=== PATIENT | male | born 1945 | race Caucasian/White ===

== ENCOUNTER → 2020-03-05 09:55 | Outpatient (CLI) | payer MEDICARE, OTHER, SELFPAY ==
[2020-03-06 21:02] LABS: COVID19 Sendout Not Detected (Not Detect)
== END ==
PROVIDERS: PCP Family Medicine; Visit Provider Nurse Practitioner
DX: Z01.812 Encounter for preprocedural laboratory examination (principal)
CPT/HCPCS: 87635

== ENCOUNTER 2020-03-08 14:14 | Day surgery (SDC) | payer MEDICARE, OTHER, SELFPAY ==
--- NOTE | 2020-03-08 | PATH_ITS ---
[facility] Accession Number: [id number] . 01 Material submitted: . PART A: cecum - CECUM POLYP PART B: sigmoid colon - SIGMOID POLYP . 01 Clinical history: . A: CECUM POLYP 1MM B: SIGMOID POLYP 2MM X2 . 02 Diagnosis: A. Cecum Polyp: Tubular adenoma. . B. Sigmoid Polyp: Portions of tubular adenoma x2. MRV 03/10/2020 1002 Local . 02 Electronically signed: . Nadia Easley MD, Pathologist NPI- [id number] . 01 Gross description: . Part A: CECUM POLYP: Received in formalin is 1 fragment(s) of george, soft tissue measuring 0.3 x 0.3 x 0.2 cm submitted entirely in 1 cassette(s) Part B: SIGMOID POLYP: Received in formalin are 2 fragment(s) of george, soft tissue measuring 0.3 x 0.2 x 0.2 cm to 0.3 x 0.3 x 0.1 cm submitted entirely in 1 cassette(s) /QBJ 03/09/2020 0657 Local . 02 Pathologist provided ICD-10: Z12.11, K63.5 . 02 CPT . 295003, 970322 Performed at: 01 [facility] [address], [place], [place] [id number] MD Jorge Sinha MD Phone: [phone] Performed at: 02 [facility] [address] [place], [place] [id number] MD Mimi Sanchez MD Phone: [phone]
--- NOTE | 2020-03-08 12:40 | PM.HP.1 ---
History of Present Illness History of Present Illness Date Patient Seen: 03/08/20 Chief complaint: 93068 SCREENING COLONOSCOPY Narrative: 74 year old male comes in today for consideration of a screening colonoscopy. Last colonoscopy on 06/26/2014, rectal tubular adenoma, 2-3 mm. There have been no lower GI symptoms suggesting disease such as change in bowel habits, bleeding, abdominal pain or anemia. There's been no family history of colon cancer or colon polyps. Overall health issues have been stable, including no major cardiac events for at least 6 weeks. PCP: Dr. 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 Patient History Medical History (Updated 03/08/20 @ 14:54 by Elise Vivas RN) Detached retina (Acute) Detached retina, bilateral (Acute) Hard of hearing (Acute) History of colon polyps (Acute) History of squamous cell carcinoma of skin (Acute) Recurrent epistaxis (Acute) Surgical History (Updated 03/08/20 @ 14:54 by Elise Vivas RN) H/O right knee surgery (Acute ~1990) H/O wrist surgery (Acute) History of cholecystectomy (Acute ~2010) Status post cataract extraction of both eyes with insertion of intraocular lens (Acute) Meds Home Medications and Allergies Home Medications Medication Instructions Recorded Confirmed Type No Known Home Medications 03/08/20 03/08/20 History Allergies Allergy/AdvReac Type Severity Reaction Status Date / Time No Known Drug Allergies Allergy Verified 03/08/20 14:30 Review of Systems Review of Systems ROS: Yes All systems reviewed with the patient and are negative except as otherwise documented Exam Narrative Exam Narrative: GENERAL: Alert and oriented, appearing stated age and in no acute distress. HEENT: Head normocephalic/atraumatic. Pupils equal, round, and reactive to light and accomodation. Extraocular muscles intact. Tympanic membranes clear. Nasal mucosa moist, septum midline. Oral mucosa moist, no lesions. Neck soft and supple, no lymphadenopathy. LUNGS: Clear to ausculation bilaterally, no wheezes, rhonchi or rales. CV: Normal S1 and S2 with regular rate and rhythm, no audible murmurs, rubs or gallops. ABDOMEN: Soft, non-tender, non-distended, no organomegaly. Positive bowel sounds. EXTREMITIES: No clubbing, cyanosis, or edema. NEURO: Cranial nerves II through XII grossly intact, no focal deficits. PSYCH: Alert and oriented x 3. SKIN: No concerning lesions. Assessment & Plan Assessment & Plan narrative: 1. History of colon polyp 2. Screening for colon cancer Plan for colonoscopy. The nature and character of the procedure as well as anticipated results were discussed. The possibility of not completing the procedure was also discussed. Possible complications including aspiration pneumonia, bleeding, perforation and reaction to medications either for sedation or preparation and missed lesions were discussed. Questions were answered and proceeding to the colonoscopy was elected. Informed consent signed. I sincerely appreciate the referral allowing me to participate in this patient's care. Please contact me with any questions or concerns.
--- NOTE | 2020-03-08 12:44 | PM.OP.ENDO ---
Operative Date/Time/Diagnoses Date of procedure: 03/08/20 Time of procedure: 15:59 Pre-op diagnosis: 1. History of colon polyp 2. Screening for colon cancer Post-op diagnosis: other (Cecal polyp x1, 1 mm, removed with cold biopsy forceps, sigmoid polyp x2, 2 mm, removed with cold biopsy forceps, diverticulosis, left-sided) Procedure & Clinicians Study performed: Colonoscopy Same procedure as scheduled: Yes Indications: 1. History of colon polyp 2. Screening for colon cancer Surgeon: Siri Casas Procedure Notes SCOAP/Timeout: 3:53 p.m. Procedure in detail: ENDOSCOPIST: Siri Casas MD Sedation RN: Meryl Moses RN Sedation start time: 3:59 p.m. Sedation end time: 4:20 p.m. PROCEDURE: Colonoscopy with cold biopsy INDICATIONS: 1. History of colon polyp 2. Screening for colon cancer MEDICATION: Levsin 0.125 mg sublingual, incremental doses of Versed and fentanyl until appropriate level sedation achieved. ASA CLASS: 1 CECAL WITHDRAWAL TIME: 24 minutes COMPLICATIONS: None. EXTENT OF PROCEDURE: Cecum. QUALITY OF PREP: Good with portions of liquid stool. PROCEDURE: Prior to insertion of the colonoscope, a digital rectal examination was accomplished with circumferential palpation of the distal rectal mucosa without significant findings being noted. The high-definition colonoscope was passed into the rectum in the usual fashion and advanced over to the cecum without difficulty. The ileocecal valve, appendiceal stoma, and medial wall all could be inspected and a 1 mm polyp was seen and removed with cold biopsy forceps. ASCENDING COLON: As the colonoscope was withdrawn, care was taken to expose and inspect the haustral folds and no abnormalities were seen. HEPATIC FLEXURE: Normal no polyps, diverticula or other abnormalities. TRANSVERSE COLON: Normal no polyps, diverticula or other abnormalities. DESCENDING COLON: Mild diverticulosis, otherwise, normal, no polyps or other abnormalities. SIGMOID COLON: Moderate diverticulosis. Two polyp, 2 mm in size, both removed with cold biopsy forceps, excellent hemostasis. Otherwise, no other abnormalities. RECTUM: Normal. J maneuver was produced. There was no significant perianal disease. The J maneuver was broken. The remainder of the rectum was inspected and there was no external hemorrhoid disease. The scope was withdrawn. IMPRESSION: 1. Cecal polyp x1, 1 mm, removed with cold biopsy forceps 2. Sigmoid polyp x2, 2 mm, removed with cold biopsy forceps 3. Mild to moderate diverticulosis, left-sided PLAN: 1. Follow-up in clinic status post pathology results. The possibility of a missed lesion including a malignancy has been discussed with the patient previously. Potential alarm symptoms have been discussed and should be reported immediately. Complications: none Post-procedure Recommendations: Will call with biopsy results Follow up: weeks (2) Disposition: PACU
[2020-03-08] MEDS: HYOSCYAMINE 0.125 MG TABLET PO (14:32)
[2020-03-08] MEDS: LACTATED RINGERS 1,000 ML 200 ML IV (14:43)
[2020-03-08 14:44] VITALS: BP 155/79; PULSE 65; RESP 16; TEMP 36.5; O2SAT 100; BMI 20.8
[2020-03-08] MEDS: fentaNYL 250 MCG/5 ML INJ IV ×3 (15:54→16:06)
[2020-03-08] MEDS: MIDAZOLAM 5 MG/5 ML VIAL IV ×3 (15:55→16:02)
[2020-03-08 16:25] VITALS: BP 117/66; PULSE 63; RESP 13; TEMP 36.3; O2SAT 97
[2020-03-08 16:30] VITALS: BP 117/54; PULSE 66; RESP 10; O2SAT 97
--- NOTE | 2020-03-08 16:33 | SUR.PHASEI ---
arouses easily to voice. Dr. Casas speaking with patient. Oriented.
[2020-03-08 16:34] VITALS: BP 126/74; PULSE 65; RESP 14; O2SAT 97
[2020-03-08 16:45] VITALS: BP 122/77; PULSE 66; RESP 15; TEMP 36.6; O2SAT 97
== END 2020-03-08 16:59 | disposition home or self-care (01) ==
PROVIDERS: PCP Family Medicine; Referring Provider Student in an Organized Health Care Education/Training Program; Visit Provider Student in an Organized Health Care Education/Training Program
PROC: 0DJD8ZZ Inspection of Lower Intestinal Tract, Via Natural or Artificial Opening Endoscopic (ICD-10-PCS; CPT 45378; principal; 2020-03-08 15:15)
DX: Z12.11 Encounter for screening for malignant neoplasm of colon (principal); Z86.010 Personal history of colon polyps; K57.30 Diverticulosis of large intestine without perforation or abscess without bleeding; D12.0 Benign neoplasm of cecum; D12.5 Benign neoplasm of sigmoid colon
CPT/HCPCS: 45380; J2250; J3010

== ENCOUNTER → 2020-10-28 14:49 | Outpatient (CLI) | payer MEDICARE, OTHER, SELFPAY ==
[2020-10-28 16:04] LABS: Add Manual Diff / Slide Review NO; Basophils Absolute Auto 0 /uL (0-100); Basophils Percent Auto 0.5 % (0-2); Eosinophils Absolute Auto 100 /uL (0-450); Eosinophils Percent Auto 1.4 % (2-4); Hematocrit 42.9 % (41-53); Hemoglobin 14.4 g/dL (13.5-17.5); Lymphocytes Absolute Auto 1400 /uL (1100-4500); Lymphocytes Percent Auto 23.3 % (25-40); Mean Corpuscular HGB Conc 33.6 % (30-36); Mean Corpuscular Hemoglobin 30.3 PG (26-34); Mean Corpuscular Volume 90.2 fL (80-100); Monocytes Absolute Auto 500 /uL (0-900); Monocytes Percent Auto 7.8 % (3-14); Neutrophils Absolute Auto 3900 /uL (1500-7000); Platelet Count 231 X10^3/uL (150-400); Red Blood Cell Count 4.76 X10^6/uL (4.5-5.9); Red Cell Distribution Width 12.9 % (11.6-14.8); White Blood Cell Count 5.8 X10^3/uL (4.5-11.0)
[2020-10-28 16:25] LABS: Erythrocyte Sedimentation Rate 3 MM/HR (0-15)
[2020-10-28 16:37] LABS: Alanine Aminotransferase 21 IU/L (<50); Albumin 4.2 g/dL (3.5-5.0); Albumin Globulin Ratio 1.4 (1.0-2.8); Alkaline Phosphatase 82 U/L (38-126); Aspartate Aminotransferase 33 IU/L (17-59); BUN Creatinine Ratio 17.3 (6-22); Bilirubin Total 0.4 mg/dL (0.2-1.3); Blood Urea Nitrogen 13 mg/dL (9-20); Carbon Dioxide 30 mmol/L (22-32); Chloride 101 mmol/L (98-107); Estimated Glomerular Filt Rate > 60.0 mL/min (>60); Glucose 59 mg/dL (80-110); HEMOLYSIS < 15 (0-50); Potassium 3.7 mmol/L (3.4-5.1); Sodium 137 mmol/L (137-145); Total Protein 7.2 g/dL (6.3-8.2)
[2020-10-28 16:41] LABS: High Sensitivity CRP - Cardiac 2.7 mg/L (1.0-3.0)
[2020-10-28 16:57] LABS: Thyroid Stimulating Hormone 3.84 uIU/mL (0.47-4.68)
== END ==
PROVIDERS: PCP Student in an Organized Health Care Education/Training Program; Referring Provider Ophthalmology; Visit Provider Ophthalmology
DX: H53.121 Transient visual loss, right eye (principal); M79.10 Myalgia, unspecified site
CPT/HCPCS: 36415; 80053; 84443; 85025; 85651; 86140

== ENCOUNTER → 2020-11-02 09:44 | Outpatient (CLI) | payer MEDICARE, OTHER, SELFPAY ==
--- NOTE | 2020-11-02 | DI.US.S_ITS ---
PROCEDURE: US CAROTID DOPPLER BI INDICATIONS: OCCULSION AND STENOSIS OF RIGHT ARTERY TECHNIQUE: Color and pulse Doppler interrogation was performed of both carotid systems, with image documentation and velocity measurements. COMPARISON: None. FINDINGS: Stenosis calculations are based on SRU (Society of Radiologists in Ultrasound) criteria. The flow velocities and the arterial waveforms are normal within both carotid arterial systems. The estimated degree of internal carotid artery stenosis is less than 50%. Antegrade flow is confirmed within both vertebral arteries. IMPRESSION: No hemodynamically significant stenosis is seen. Dictated by: Alexander Ram M.D. on 11/02/2020 at 9:57 Approved by: Alexander Ram M.D. on 11/02/2020 at 9:57
== END ==
PROVIDERS: PCP Student in an Organized Health Care Education/Training Program; Referring Provider Ophthalmology; Visit Provider Ophthalmology
DX: I65.21 Occlusion and stenosis of right carotid artery (principal)
CPT/HCPCS: 93880

== ENCOUNTER → 2020-11-25 07:57 | Outpatient (CLI) | payer MEDICARE, OTHER, SELFPAY ==
--- NOTE | 2020-11-25 | DI.ECHO.S_ITS ---
[place] [facility]---------+ [facility] +---------+ : : [address] : : : : [id number] : : : : Phone: [phone] +---------+ Echocardiogram Report + + :Name: ISADORA FONTANEZ Study Date: 11/25/2020 Height: 71 in : :[facility] ReadingLocation: Weight: 153 lb : : Gender: Male BSA: 1.9 m2 : :: 1945 Age: 75 yrs BP: 167/83 mmHg: :Reason For Study: Amaurosis Fugax : :Ordering Physician: JUDY, : :BRE Performed By: Singh Degroot : :Referring: BRE KIM : + + Interpretation Summary The ejection fraction is estimated to be 50-55%. There is mild mitral regurgitation. There is mild to moderate pulmonic regurgitation. The ascending aorta is mildly enlarged. Procedure: A two-dimensional transthoracic echocardiogram with color flow and Doppler was performed. The study quality was technically adequate. There is no prior echocardiogram noted for this patient. The patient was in sinus rhythm with heart rates between 51-61 bpm during the exam. Left Ventricle: The left ventricle is normal in size and wall thickness. Left ventricular systolic function is low normal. The ejection fraction is estimated to be 50-55%. There are no focal wall motion abnormalities. Diastolic function could not be accurately assessed due to unobtainable data. Right Ventricle: The right ventricle is normal in size and function. Atria: Both atria are normal in size. There is no Doppler evidence for an interatrial shunt. Mitral Valve: The mitral valve is normal in structure and function. There is mild mitral regurgitation. The mitral regurgitant jet is eccentrically directed. Aortic Valve: The aortic valve is normal in structure and function. No aortic regurgitation is present. Tricuspid Valve: The tricuspid valve is normal in structure and function. There is a trace or physiologic amount of tricuspid regurgitation. Pulmonary artery pressures cannot be estimated because of the lack of a measurable TR jet velocity but the IVC suggests a CVP of around 3 mmHg. Pulmonic Valve: The pulmonic valve is not well seen, but is grossly normal. There is mild to moderate pulmonic regurgitation. Great Vessels: The aortic root is normal size. The ascending aorta is mildly enlarged. The IVC is of normal diameter and collapses greater than 50% with a sniff. This suggests a low right atrial pressure of 3 mm Hg. Pericardium/ Pleura There is no pericardial effusion. There is no pleural effusion. MMode/2D Measurements & Calculations LVIDd: 5.4 cm LVOT diam: 2.4 cm LVIDs: 3.7 cm Ao root diam: 3.4 cm FS: 31.5 % asc Aorta Diam: 3.7 cm IVSd: 0.75 cm Ao Arch Diam (Prox Trans): 2.8 cm LVPWd: 0.86 cm LV chase. diameter/BSA (cm/m^2): 2.9 LV sys. diameter/BSA (cm/m^2): 2.0 LA A2 area: 14.1 cm2 RA area: 8.6 cm2 LA A4 area: 12.8 cm2 IVC diam: 1.9 cm LA length (vol): 3.7 cm LA vol: 41.8 ml LA vol index: 22.2 ml/m2 RVD1 (basal): 3.7 cm TAPSE: 1.8 cm Doppler Measurements & Calculations Ao V2 max: 84.5 cm/sec LVOT Max Ubaldo: 74.9 cm/sec Ao V2 mean: 58.7 cm/sec LV V1 max P.2 mmHg Ao max P.9 mmHg LV V1 VTI: 18.9 cm Ao mean P.5 mmHg ALETHEA(I,D): 4.0 cm2 Ao V2 VTI: 21.7 cm ALETHEA(V,D): 4.1 cm2 sev ratio: 0.87 ALETHEA indexed to BSA (cm^2/m^2): 2.1 MV E max ubaldo: 65.3 cm/sec PA V2 max: 89.2 cm/sec Med Peak E' Ubaldo: 4.4 cm/sec PA V2 mean: 64.6 cm/sec E/E' med: 14.8 PA mean P.8 mmHg Lat Peak E' Ubaldo: 5.2 cm/sec PA pr(Accel): 19.8 mmHg E/E' lat: 12.7 E/e' average: 13.7 MV dec time: 0.34 sec SV(LVOT): 87.0 ml Reading Physician:09:21 AM
== END ==
PROVIDERS: PCP Student in an Organized Health Care Education/Training Program; Referring Provider Student in an Organized Health Care Education/Training Program; Visit Provider Student in an Organized Health Care Education/Training Program
DX: G45.3 Amaurosis fugax (principal); I34.0 Nonrheumatic mitral (valve) insufficiency; I37.1 Nonrheumatic pulmonary valve insufficiency
CPT/HCPCS: 93306

== ENCOUNTER → 2021-01-24 14:14 | Outpatient (CLI) | payer MEDICARE, OTHER, SELFPAY ==
[2021-01-24 16:58] LABS: COVID19 -Nasal RAPID Negative (Negative)
== END ==
PROVIDERS: PCP Student in an Organized Health Care Education/Training Program; Visit Provider Physician Assistant
DX: Z01.812 Encounter for preprocedural laboratory examination (principal); Z20.822 Contact with and (suspected) exposure to COVID-19
CPT/HCPCS: 87635; C9803

== ENCOUNTER → 2021-01-27 13:33 | Outpatient (CLI) | payer MEDICARE, OTHER, SELFPAY ==
--- NOTE | 2021-01-27 09:29 | DI.ECHO.S_ITS ---
[place] [facility]---------+ [facility] +---------+ : : [address] : : [address] : : : : [id number] : : : : Phone: [phone] : [phone] +---------+ Echocardiogram Report + + :Name: ISADORA FONTANEZ Study Date: 01/27/2021 Height: 71 in : :[facility] ReadingLocation: Weight: 152 lb: : Gender: Male BSA: 1.9 m2 : :: 1945 Age: 75 yrs : :Reason For Study: Patent Foramen [place] : :Ordering Physician: Halima : :Abdiel Nieves Performed By: Singh Degroot : :Referring: HALIMA NIEVES : + + Interpretation Summary Limited Echo: Injection of contrast documented no interatrial shunt. Procedure: The study quality was technically adequate. A two-dimensional transthoracic echocardiogram with color flow and Doppler was performed in limited views only. Comparison is made with the echocardiogram of 11/25/2020. A saline contrast injection was performed to assess for cardiac shunting. The patient was in sinus rhythm with heart rates between 57-61 bpm during the exam. Left Ventricle: The left ventricle is normal in size and wall thickness. The ejection fraction is estimated to be 50-55%. Left ventricular systolic function is low normal. There are no focal wall motion abnormalities. Right Ventricle: The right ventricle is normal in size and function. Atria: Injection of contrast documented no interatrial shunt. Great Vessels: The IVC is of normal diameter and collapses greater than 50% with a sniff. This suggests a low right atrial pressure of 3 mm Hg. Pericardium/ Pleura There is no pericardial effusion. There is no pleural effusion. MMode/2D Measurements & Calculations LVIDd: 5.3 cm LVIDs: 3.8 cm FS: 29.7 % IVSd: 0.91 cm LVPWd: 0.87 cm LV chase. diameter/BSA (cm/m^2): 2.9 LV sys. diameter/BSA (cm/m^2): 2.0 Reading Physician:05:51 PM
--- NOTE | 2021-01-27 19:33 | DI.NM.S_ITS ---
DATE OF SERVICE: 01/27/2021 PROCEDURE PERFORMED: Exercise treadmill stress test without imaging. ORDERING PROVIDER: Dr. Bharat Nieves. INDICATIONS: The patient is a 75-year-old male with a history of possible TIA and significant ectopy noted on heart monitoring. FINDINGS: 1. The patient was able to exercise for 9 minute 6 seconds on a standard Prashant protocol, suggesting excellent exercise capacity with an MARTELL of -39% and was stopped because of considerable ectopy and thus this is a submaximal study. He achieved 10.1 METs. 2. He had a normal heart rate and blood pressure response to exercise, achieving a maximum heart rate of 146 BPM (100% of his predicted maximum). 3. He had no chest discomfort or anginal symptoms with exercise. 4. His resting ECG shows sinus rhythm with normal ST segments and no significant ectopy. With stress, he develops increasingly frequent atrial ectopy, initially with isolated PACs, then in couplets and triplets followed by wide-complex premature beats, which may reflect ventricular ectopy or aberrant conduction, escalating to triplets at peak exercise. The ST-segments are compromised by the ectopy and motion artifact, but the 30 second recovery ECG shows normal ST segments without any ischemic changes. He continued to have occasional atrial couplets in recovery with PVCs or aberrant conduction in a bigeminal pattern. There were no sustained arrhythmias and he remained asymptomatic. IMPRESSION: 1. Normal exercise treadmill study for ischemia with no ECG evidence for significant ST-segment deviation. 2. Excellent exercise capacity without angina. He has increasingly for frequent atrial and possible ventricular ectopy with exercise of uncertain clinical significance, but remained asymptomatic. Clinton Hawkins - SYBIL/zheng/glenny doc#: [id number]/job#: [id number] dd: 01/27/2021 16:47:00 dt: 01/27/2021 18:50:00 DICTATING MD/COPIES TO: Ming Wolf MD; Mahin Nieves MD COPIES MNE: RENE;
== END ==
PROVIDERS: PCP Student in an Organized Health Care Education/Training Program; Referring Provider Internal Medicine Cardiovascular Disease; Visit Provider Internal Medicine Cardiovascular Disease
DX: I47.2 Ventricular tachycardia (principal); G45.3 Amaurosis fugax; I49.3 Ventricular premature depolarization
CPT/HCPCS: 93017; 93307

== ENCOUNTER → 2021-07-01 10:37 | Outpatient (CLI) | payer MEDICARE, OTHER, SELFPAY ==
[2021-07-01] MEDS: COVID-19 VACC #3, MRNA(MOD) 50 MCG/0.25 ML VIAL IM (10:42)
== END ==
PROVIDERS: PCP Student in an Organized Health Care Education/Training Program; Visit Provider Internal Medicine
DX: Z23 Encounter for immunization (principal)
CPT/HCPCS: 0013A; 91301

== ENCOUNTER 2023-01-20 18:02 | Emergency (ER) | payer MEDICARE, OTHER, SELFPAY ==
[2023-01-20 18:08] VITALS: BP 163/72; PULSE 61; RESP 14; TEMP 36.3; O2SAT 100; BMI 22.2
--- NOTE | 2023-01-20 18:12 | DI.US.S_ITS ---
PROCEDURE: US PERIPH VENOUS LOW EXTREM LT INDICATIONS: EDEMA TECHNIQUE: Real-time imaging, as well as color and pulse Doppler interrogation, were performed of the lower extremity deep veins from the inguinal ligament to the popliteal fossa. COMPARISON: None. FINDINGS: The common femoral, femoral and popliteal veins are normally compressible, and free of intraluminal thrombus. Color and pulse Doppler demonstrate normal phasic intraluminal flow. There is normal augmentation response to distal compression maneuver. IMPRESSION: No evidence of DVT in visualized left lower extremity veins. Dictated by: Tye Marroquin M.D. on 01/20/2023 at 19:05 Approved by: Tye Marroquin M.D. on 01/20/2023 at 19:05
[2023-01-20 22:02] VITALS: BP 185/87; PULSE 53; RESP 16; O2SAT 100
--- NOTE | 2023-01-20 22:06 | ED_ITS ---
HPI - Extremity Problem General Chief complaint: Extremity Problem,Nontraumatic Stated complaint: Swelling foot Time Seen by Provider: 01/20/23 20:23 Source: patient Mode of arrival: Ambulatory History of Present Illness HPI Narrative: 77-year-old male nonsmoker with no chronic medical history presents for evaluation of swelling of his left foot and some pain in his mid to upper calf in the absence of any injury. He denies any redness, fever or chills. He denies any trauma or injury. He states he 1st noticed the pain and swelling after traveling internationally. He is not dizzy nor weak or lightheaded. He denies chest pain or shortness of breath. He has had no nausea, vomiting or diarrhea. His pain is worse with attempts at ambulation and improves with rest. He denies any history of blood clot. Related Data Home Medications Medication Instructions Recorded Confirmed No Known Home Medications 03/08/20 03/08/20 Allergies Allergy/AdvReac Type Severity Reaction Status Date / Time No Known Drug Allergies Allergy Verified 01/20/23 18:08 Review of Systems Review of Systems Narrative: GENERAL: Denies chills, fatigue, malaise, fever, sweats. HEENT: Denies sinus pain, ear pain, sore throat, difficulty swallowing, dizzine ss. RESPIRATORY: Denies dyspnea, cough, wheezing, hemoptysis, sputum. CARDIOVASCULAR: See HPI GASTROINTESTINAL: Denies nausea, vomiting, abdominal pain, diarrhea, constipation, melena. : Denies dysuria, frequency, incontinence, hematuria, urinary retention. MUSCULOSKELETAL: See HPI SKIN: Denies rash, skin lesions, or other NEUROLOGIC: Denies weakness, headache, numbness, change in speech, confusion, seizures, incoordination. PSYCHIATRIC: No concerning psychosocial issues. 12 point review of systems is negative except for those stated above Patient History Medical History (Updated 01/20/23 @ 22:32 by Christo Fatima DO) Detached retina Detached retina, bilateral Hard of hearing History of colon polyps History of squamous cell carcinoma of skin Recurrent epistaxis Surgical History (Updated 03/08/20 @ 14:54 by Elise Vivas RN) H/O right knee surgery (~1990) H/O wrist surgery History of cholecystectomy (~2010) Status post cataract extraction of both eyes with insertion of intraocular lens Social History household members: spouse Smoking Status: Never smoker alcohol intake: current Smoking Status: Never smoker Substance Use Type: does not use Exam Narrative Exam Narrative: GENERAL: [77] year old patient appears stated age. Well-developed patient, in mild distress. HEAD: Atraumatic. Normocephalic. EYES: Pupils equal round and reactive. Extraocular motions intact. No scleral icterus. No injection or drainage. ENT: Nose without bleeding, purulent drainage. Throat without erythema, tonsillar hypertrophy or exudate. Airway patent. NECK: Trachea midline. Non tender CARDIOVASCULAR: Regular rate and rhythm without murmurs, gallops, or rubs. RESPIRATORY: Clear to auscultation. Breath sounds equal bilaterally. No wheezes, rales, or rhonchi. GASTROINTESTINAL: Abdomen soft, non-tender, nondistended. EXTREMITIES: Minimal swelling of left foot, no measurable difference in left calf versus right circumference, no redness or warmth, no lymphangitis. Compartments soft. BACK: Nontender without deformity or crepitance. No flank tenderness. NEURO: AOx3. SKIN: No rash or erythema of visible areas Initial Vital Signs Initial Vital Signs: Vital Signs Temperature 97.3 F L 01/20/23 18:08 Pulse Rate 61 01/20/23 18:08 Respiratory Rate 14 01/20/23 18:08 Blood Pressure 163/72 H 01/20/23 18:08 Pulse Oximetry 100 01/20/23 18:08 Oxygen Delivery Method Room Air 01/20/23 18:08 Course Orders Ordered: ED Orders 01/20/23 18:12 US periph venous low extrem lt Stat Vital Signs Vital signs: Vital Signs - 8 hr 01/20/23 22:02 Pulse Rate 53 L Respiratory Rate 16 Blood Pressure 185/87 H Pulse Oximetry 100 Oxygen Delivery Method Room Air MDM - Extremity (Nontraumatic) MDM Narrative Medical decision making narrative: [77] year old patient presents with pain and swelling to left leg after international travel Multiple etiologies for patient's symptoms considered including, but not limited to: [DVT versus infectious process versus gout versus renal versus liver versus heart involvement] Prior Charts reviewed in our EMR Primary Historian: patient Imaging reviewed: No DVT or Ratliff's cyst Multiple diagnoses considered as noted above, however systemic problems such as cardiovascular, liver, renal thought unlikely given unilateral findings. DVT strongly considered but thankfully ultrasound demonstrates no DVT or Ratliff's cyst. We did discuss the possibility of a small more peripheral clot that is yet to be able to be seen on imaging, also talked about the possibility of a Ratliff's cyst which has collapsed in his not visible on imaging. Infectious process considered but thought unlikely given redness or warmth nor systemic complaints. He was encouraged to elevate, consider compressive stockings, follow closely with his primary care provider and return for worsening pain, redness, fever or chills, chest pain or shortness of breath or other concerning symptoms Findings and discharge diagnosis discussed with patient/family followed by verbalization of understanding Return precautions discussed with patient/family whom verbalize understanding of diagnosis and plan Discharge Plan Departure Patient Disposition: Home Clinical Impression: Lower extremity edema Instructions: DI for Peripheral Edema-Unilateral Activity Restrictions/Additional Instructions: *You have been diagnosed with [left leg pain and swelling. As we discussed there is no evidence of blood clot, infection or a Ratliff's cyst at this time and therefore no indication for a specific or immediate intervention. As we discussed elevating your leg above the level of your heart as much as possible, in the use of compressive stockings can be helpful. Additionally, as we discussed it is reasonable to consider a repeat lower extremity ultrasound in 7 days if symptoms do not improve *What to do: *Please continue to take your regular medications as directed. [ ] New medication prescriptions sent to your pharmacy: [ ] [ ] New medication written as a paper prescription [ ] No new medications given *Please follow up with your primary care provider in 2-3 days, call for an appointment. Let them know you were seen in the Emergency Department and that we ask that you be seen in follow up. We will electronically transmit a record of today's note if your PCP is in our system *If you do not have a primary care provider please contact the [facility] Resource line at [phone]. They will ask some questions about your medical history and help get you set up with a doctor in the community. *Return to Emergency Department if you should have any new, worsening or concerning symptoms, such as [fever greater than 101 F, shaking chills, worsening pain, persistent vomiting or other bothersome symptoms] Prescriptions: No Action No Known Home Medications Referrals: Siri Casas MD [Primary Care Provider] - Stand Alone Forms: Patient Portal/API
== END 2023-01-20 22:42 | disposition home or self-care (01) ==
PROVIDERS: Emergency Provider Emergency Medicine; PCP Student in an Organized Health Care Education/Training Program
DX: R60.0 Localized edema (principal)
CPT/HCPCS: 93971; 99283

== ENCOUNTER → 2023-03-04 14:51 | Outpatient (CLI) | payer MEDICARE, OTHER, SELFPAY ==
--- NOTE | 2023-03-04 14:52 | DI.RAD.S_ITS ---
PROCEDURE: XR TIBIA FIBULA LT 2V INDICATIONS: Left leg injury TECHNIQUE: 2 views of the tibia and fibula were acquired. COMPARISON: None. FINDINGS: Bones: No fractures or dislocations. Osteoarthritic changes are seen in left knee joints. No suspicious bony lesions. Soft tissues: No suspicious soft tissue calcifications or masses. IMPRESSION: The left lower leg fracture or dislocation. No gross soft tissue abnormalities. Left knee joint osteoarthritis. Dictated by: Tye Marroquin M.D. on 03/04/2023 at 15:05 Approved by: Tye Marroquin M.D. on 03/04/2023 at 15:06
== END ==
PROVIDERS: PCP Student in an Organized Health Care Education/Training Program; Referring Provider Nurse Practitioner Family; Visit Provider Nurse Practitioner Family
DX: S89.90XA Unspecified injury of unspecified lower leg, initial encounter (principal); M17.12 Unilateral primary osteoarthritis, left knee; X58.XXXA Exposure to other specified factors, initial encounter
CPT/HCPCS: 73590

== ENCOUNTER 2024-01-03 14:04 | Emergency (ER) | payer MEDICARE, OTHER, SELFPAY ==
[2024-01-03] VITALS (14 sets, daily range): BP systolic 128–172; BP diastolic 61–94; PULSE 68–89; RESP 21–32; TEMP 38.2; O2SAT 97–99; BMI 21.6
--- NOTE | 2024-01-03 14:18 | DI.RAD.S_ITS ---
PROCEDURE: XR CHEST 1V INDICATIONS: suspected sepsis TECHNIQUE: One view of the chest was acquired. COMPARISON: [facility], , CHEST 1 VIEW, 07/23/2010, 2:19. FINDINGS: Surgical changes and devices: None. Lungs and pleura: Lungs are clear. No pleural effusions or pneumothorax. Mediastinum: Mediastinal contours appear normal. Heart size is normal. Bones and chest wall: No suspicious bony lesions. Overlying soft tissues appear unremarkable. IMPRESSION: No acute pulmonary process. Dictated by: Pamela Cai M.D. on 01/03/2024 at 14:41 Approved by: Pamela Cai M.D. on 01/03/2024 at 14:41
[2024-01-03 14:44] LABS: Add Manual Diff / Slide Review NO; Basophils Absolute Auto 0 /uL (0-100); Basophils Percent Auto 0.3 % (0-2); Eosinophils Absolute Auto 0 /uL (0-450); Hemoglobin 13.5 g/dL (13.5-17.5); Lymphocytes Absolute Auto 400 /uL (1100-4500); Lymphocytes Percent Auto 4.5 % (25-40); Mean Corpuscular HGB Conc 34.7 % (30-36); Mean Corpuscular Hemoglobin 30.7 PG (26-34); Mean Corpuscular Volume 88.7 fL (80-100); Monocytes Absolute Auto 600 /uL (0-900); Monocytes Percent Auto 7.3 % (3-14); Neutrophils Absolute Auto 7100 /uL (1500-7000); Neutrophils Percent Auto 87.9 % (50-75); Platelet Count 158 X10^3/uL (150-400); Red Cell Distribution Width 13.3 % (11.6-14.8); White Blood Cell Count 8.1 X10^3/uL (4.5-11.0)
[2024-01-03 14:50] LABS: INR 1.1 (0.9-1.3); Prothrombin Time 12.1 SECONDS (9.4-12.5)
[2024-01-03] MEDS: SODIUM CHLORIDE 0.9% 1,000 ML 1000 ML IV (14:52)
[2024-01-03 14:53] LABS: HEMOLYSIS 15 (0-50); PTT Partial Thromboplastin Tim 34 SECONDS (25.1-36.5)
[2024-01-03 14:58] LABS: Alanine Aminotransferase 22 IU/L (<50); Albumin 4.2 g/dL (3.5-5.0); Albumin Globulin Ratio 1.4 (1.0-2.8); Alkaline Phosphatase 77 U/L (38-126); Aspartate Aminotransferase 34 IU/L (17-59); BUN Creatinine Ratio 16.1 (6-22); Bilirubin Total 0.7 mg/dL (0.2-1.3); Blood Urea Nitrogen 15 mg/dL (9-20); Calcium 8.3 mg/dL (8.4-10.2); Carbon Dioxide 26 mmol/L (22-32); Chloride 94 mmol/L (98-107); Estimated Glomerular Filt Rate > 60 mL/min (>60); Glucose 114 mg/dL (80-110); Lactate (Lactic Acid) 1.7 mmol/L (0.7-2.1); Lipase 145 U/L (23-300); Potassium 3.9 mmol/L (3.4-5.1); Sodium 128 mmol/L (137-145); Total Protein 7.2 g/dL (6.3-8.2)
[2024-01-03 15:17] LABS: Adenovirus Not Detected (Not Detect); B. parapertussis Not Detected (Not Detecte); Bordetella pertussis Not Detected (Not Detect); Chlamydophila pneumoniae Not Detected (Not Detect); Coronavirus 229E Not Detected (Not Detect); Coronavirus HKU1 Not Detected (Not Detect); Coronavirus NL 63 Not Detected (Not Detect); Coronavirus OC43 Not Detected (Not Detect); Human Metapneumovirus Not Detected (Not Detect); Human Rhinovirus/Enterovirus Not Detected (Not Detect); Influenza A Not Detected (Not Detect); Influenza B Not Detected (Not Detect); Mycoplasma pneumoniae Not Detected (Not Detect); Parainfluenza Virus 1 Not Detected (Not Detect); Parainfluenza Virus 2 Not Detected (Not Detect); Parainfluenza Virus 3 Not Detected (Not Detect); Parainfluenza Virus 4 Not Detected (Not Detect); Respiratory Syncytial Virus Not Detected (Not Detect); SARS- CoV-2 Not Detected (Not Detecte)
--- NOTE | 2024-01-03 16:05 | ED_ITS ---
HPI - SOB/Dyspnea General Chief Complaint: Shortness of Breath/Dyspnea Stated Complaint: shivering, weakness, sob, sent by [facility] Time Seen by Provider: 01/03/24 15:31 Source: patient Mode of arrival: Ambulatory Limitations: no limitations History of Present Illness HPI Narrative: Patient is a 78-year-old male with arrhythmia takes metoprolol hypertension presenting today with fever and chills. He reports some mild shortness of breath ongoing for the last 2 days. He has had body aches chills. No abdominal pain nausea vomiting no painful frequent urination. He does report significant decreased p.o. intake. He was slightly febrile in the ED of 100.8 when he arrived Onset (ago): day(s) (2) Consistency/Duration: intermittent Related Data Home Medications Medication Instructions Recorded Confirmed No Known Home Medications 03/08/20 01/03/24 Allergies Allergy/AdvReac Type Severity Reaction Status Date / Time No Known Drug Allergies Allergy Verified 01/03/24 13:43 Patient History Medical History Detached retina, bilateral Detached retina History of squamous cell carcinoma of skin History of colon polyps Recurrent epistaxis Hard of hearing Surgical History Status post cataract extraction of both eyes with insertion of intraocular lens History of cholecystectomy (~2010) H/O wrist surgery H/O right knee surgery (~1990) Social History household members: spouse Smoking Status: Never smoker alcohol intake: current Smoking Status: Never smoker alcohol intake frequency: 0-2 drinks per day Substance Use Type: does not use Exam Initial Vital Signs Initial Vital Signs: Vital Signs Temperature 100.8 F H 01/03/24 14:06 Pulse Rate 68 01/03/24 14:06 Respiratory Rate 22 01/03/24 14:06 Blood Pressure 149/65 H 01/03/24 14:06 Pulse Oximetry 97 01/03/24 14:06 Oxygen Delivery Method Room Air 01/03/24 14:06 GENERAL: Alert pleasant 78-year-old male HEENT: Head atraumatic,EOMI, pupils reactive, face symmetric, moist mucous membranes CARDIOVASCULAR: Regular rate and rhythm without murmurs, rubs or gallops. RESPIRATORY: Breath sounds equal bilaterally, no wheezes rales or rhonchi. ABDOMEN: Soft, nontender. Normoactive bowel sounds all 4 quadrants. No guarding or rebound. EXTREMITIES: Normal range of motion, no clubbing or edema. Neurovascularly intact NEUROLOGICAL: Alert and oriented x4.Normal gait and speech. SKIN: Warm, dry, no laceration, no petechiae, no rashes or lesions. Course Orders Ordered: ED Orders 01/03/24 14:18 XR chest 1V Stat EKG-12 Lead Stat RT Consult Eval and Treat NOW 01/03/24 14:20 Respiratory Panel (Film Array) Stat 01/03/24 14:32 Complete Blood Count AUTO DIFF Stat Comprehensive Metabolic Panel Stat Lactate (Lactic Acid) Stat Lipase Stat PTT Partial Thromboplastin Morales Stat Procalcitonin Stat Prothrombin Time INR Stat 01/03/24 14:44 Blood Culture Stat 01/03/24 16:00 Urine Microscopic Stat Discontinued Medications Sodium Chloride (Normal Saline 0.9%) 1,000 mls @ 1,000 mls/hr IV BOLUS ONE Stop: 01/03/24 15:17 Last Infusion: 01/03/24 16:24 Dose: Infused Documented By: Admin: 01/03/24 14:52 Dose: 1,000 mls/hr Documented By: LUKE Ondansetron HCl (Ondansetron 4 Mg/2 Ml Inj) 4 mg IV NOW PRN PRN Reason: Nausea And Vomiting Ondansetron HCl (Ondansetron 4 Mg Odt) 4 mg SL NOW PRN PRN Reason: Nausea And Vomiting Vital Signs Vital signs: Vital Signs - 8 hr 01/03/24 14:06 01/03/24 14:15 01/03/24 14:16 Temperature 100.8 F H Pulse Rate 68 89 82 Respiratory Rate 22 27 H 27 H Blood Pressure 149/65 H Pulse Oximetry 97 98 98 Oxygen Delivery Method Room Air 01/03/24 14:16 01/03/24 14:30 01/03/24 15:00 Temperature Pulse Rate 85 80 Respiratory Rate 27 H 29 H Blood Pressure 128/82 Pulse Oximetry 98 97 Oxygen Delivery Method 01/03/24 15:20 01/03/24 15:20 01/03/24 15:30 Temperature Pulse Rate 83 Respiratory Rate 30 H Blood Pressure 134/61 147/65 H Pulse Oximetry 98 Oxygen Delivery Method 01/03/24 15:30 01/03/24 15:45 01/03/24 15:45 Temperature Pulse Rate 83 78 Respiratory Rate 29 H 28 H Blood Pressure 146/70 H Pulse Oximetry 98 99 Oxygen Delivery Method 01/03/24 16:00 01/03/24 16:00 01/03/24 16:15 Temperature Pulse Rate 79 82 Respiratory Rate 27 H 21 Blood Pressure 151/70 H Pulse Oximetry 99 98 Oxygen Delivery Method 01/03/24 16:15 01/03/24 16:30 01/03/24 16:30 Temperature Pulse Rate 83 Respiratory Rate 25 H Blood Pressure 144/94 H 172/78 H Pulse Oximetry 99 Oxygen Delivery Method 01/03/24 16:45 01/03/24 16:45 01/03/24 17:00 Temperature Pulse Rate 79 82 Respiratory Rate 27 H 29 H Blood Pressure 156/65 H Pulse Oximetry 98 98 Oxygen Delivery Method 01/03/24 17:00 01/03/24 17:15 01/03/24 17:15 Temperature Pulse Rate 81 Respiratory Rate 32 H Blood Pressure 171/70 H 137/64 Pulse Oximetry 97 Oxygen Delivery Method MDM - SOB/Dyspnea Lab Data 01/03/24 14:32 01/03/24 14:32 Labs: Lab Results 01/03/24 01/03/24 01/03/24 Range/Units 14:20 14:32 16:00 WBC 8.1 (4.5-11.0) X10^3/uL RBC 4.40 L (4.5-5.9) X10^6/uL Hgb 13.5 (13.5-17.5) g/dL Hct 39.0 L (41-53) % MCV 88.7 (80-100) fL MCH 30.7 (26-34) PG MCHC 34.7 (30-36) % RDW 13.3 (11.6-14.8) % Plt Count 158 (150-400) X10^3/uL Neut % (Auto) 87.9 H (50-75) % Lymph % (Auto) 4.5 L (25-40) % Edwards % (Auto) 7.3 (3-14) % Eos % (Auto) 0.0 L (2-4) % Baso % (Auto) 0.3 (0-2) % Neut # (Auto) 7100 H (6059-6859) /uL Lymph # (Auto) 400 L (4751-9039) /uL Edwards # (Auto) 600 (0-900) /uL Eos # (Auto) 0 (0-450) /uL Baso # (Auto) 0 (0-100) /uL PT 12.1 (9.4-12.5) SECONDS INR 1.1 (0.9-1.3) APTT 34 (25.1-36.5) SECONDS Sodium 128 L (137-145) mmol/L Potassium 3.9 (3.4-5.1) mmol/L Chloride 94 L (98-107) mmol/L Carbon Dioxide 26 (22-32) mmol/L BUN 15 (9-20) mg/dL Creatinine 0.93 (0.66-1.25) mg/dL Estimated GFR > 60 (>60) mL/min BUN/Creatinine Ratio 16.1 (6-22) Glucose 114 H (80-110) mg/dL Lactate 1.7 (0.7-2.1) mmol/L Calcium 8.3 L (8.4-10.2) mg/dL Total Bilirubin 0.7 (0.2-1.3) mg/dL AST 34 (17-59) IU/L ALT 22 (<50) IU/L Alkaline Phosphatase 77 (38-126) U/L Total Protein 7.2 (6.3-8.2) g/dL Albumin 4.2 (3.5-5.0) g/dL Globulin 3.0 (1.7-4.1) g/dL Albumin/Globulin Ratio 1.4 (1.0-2.8) Lipase 145 (23-300) U/L Procalcitonin 0.116 (<0.5) ng/mL Urine RBC 1-5/hpf (0-5/HPF) Urine WBC 0-1/hpf (0-5/HPF) Ur Squamous Epith Cells 0-1 /hpf (0-5/HPF) Urine Bacteria Occasional (0-1) (None) Urine Mucus 2+ H (Negative) Ur Culture Indicated? Cult not indicated Vol Urine Centrifuged 10ml (spun) Chlamy pneumoniae PCR Not detected (Not Detect) Adenovirus (PCR) Not detected (Not Detect) B.parapertussis DNA PCR Not detected (Not Detecte) Coronavirus OC43 (PCR) Not detected (Not Detect) Coronavirus HKU1 (PCR) Not detected (Not Detect) Coronavirus 229E (PCR) Not detected (Not Detect) SARS-CoV-2 (PCR) Not detected (Not Detecte) Coronavirus NL63 (PCR) Not detected (Not Detect) Human Metapneumovir PCR Not detected (Not Detect) Influenza Type A (PCR) Not detected (Not Detect) Influenza Type B (PCR) Not detected (Not Detect) M. pneumoniae (PCR) Not detected (Not Detect) Parainfluenza 1 (PCR) Not detected (Not Detect) Parainfluenza 2 (PCR) Not detected (Not Detect) Parainfluenza 3 (PCR) Not detected (Not Detect) Parainfluenza 4 (PCR) Not detected (Not Detect) RSV (PCR) Not detected (Not Detect) Entero/Rhino (PCR) Not detected (Not Detect) Point of Care Testing Glucose POC 114 Urine Dip Bedside Urine Glucose Negative Bedside Urine Bilirubin - Negative Bedside Urine Ketone +/- 5 Urine Specific Clark 1.025 Bedside Urine Occult Blood +++ Bedside Urine pH 6.0 Bedside Urine Protein ++ 100 Bedside Urine Urobilinogen - Negative Bedside Urine Nitrite - Negative Bedside Urine Leukocytes - Negative Esterase Imaging Data Chest x-ray: Radiologist's Impression: PROCEDURE: XR CHEST 1V INDICATIONS: suspected sepsis TECHNIQUE: One view of the chest was acquired. COMPARISON: [facility], CHEST 1 VIEW, 07/23/2010, 2:19. FINDINGS: Surgical changes and devices: None. Lungs and pleura: Lungs are clear. No pleural effusions or pneumothorax. Mediastinum: Mediastinal contours appear normal. Heart size is normal. Bones and chest wall: No suspicious bony lesions. Overlying soft tissues appear unremarkable. IMPRESSION: No acute pulmonary process. Dictated by: Pamela Cai M.D. on 01/03/2024 at 14:41 ECG Data Attestation: I personally reviewed and interpreted this ECG as follows: Interpretation: Sinus arrhythmia with PACs heart rate 94 HI interval 150 QRS [address] changes or T-wave inversions MDM Narrative Medical decision making narrative: Patient is 78-year-old male presents today concern for infection he has low- grade temp of a 100.8?. History of body aches and chills. He overall does not appear toxic. Blood work has been reviewed WBC 8.1, hemoglobin 13.5, hematocrit 39, platelets 158, sodium 128 (previously 137 and 2020) potassium 3.9, chloride 94, carbon dioxide 26, BUN 15 creatinine 0.9 glucose 114, bilirubin 0.7 AST 34 ALT 22 alk- phos 77 lipase 145, lactate 1.7 Respiratory panel is negative Chest x-ray has been reviewed no acute cardiopulmonary process EKGs been reviewed Patient presents today with fever body aches upper respiratory like symptoms. However no cause. Actually does not really have any source of sepsis or infection I do suspect viral. Lactate is within normal limits no significant leukocytosis he would low-grade temp of a 100.8? but not tachycardic or hypotensive. Urinalysis is also negative for infection. At this time no need for antibiotics. Cultures are pending Discharge Plan Departure Patient Disposition: Home Clinical Impression: Viral illness Instructions: DI for Viral Upper Respiratory Infection -- Adult Activity Restrictions/Additional Instructions: *You have been diagnosed with upper respiratory infection *What to do: At this time no need for antibiotics this is probably virus. Recommend you continue to stay hydrated drink fluids Gatorade or Gatorade like substance *Continue to take medications as directed Tylenol 650 mg every 4-6 hours if needed for fever Motrin 600 mg every 6 hours if needed for fever *Follow up with your primary care provider in 2-3 days or call [phone] *Return to ER if you should have decreased intake confusion increased shortness of breath or any new, worsening or concerning symptoms Prescriptions: No Action No Known Home Medications Referrals: Siri Casas MD [Primary Care Provider] - Stand Alone Forms: Patient Portal/API
[2024-01-03 16:36] LABS: Bacteria Urine Occasional (0-1); Culture Indicated Urine Cult Not Indicated; Mucus Urine 2+ (Negative); RBC Urine 1-5/HPF (0-5/HPF); Squamous Epithelial Cell Urine 0-1 /HPF (0-5/HPF); Urine Volume 10mL (spun); WBC Urine 0-1/HPF (0-5/HPF)
[2024-01-03 17:14] LABS: Procalcitonin 0.116 ng/mL (<0.5)
== END 2024-01-03 17:26 | disposition home or self-care (01) ==
PROVIDERS: Emergency Provider Emergency Medicine; PCP Student in an Organized Health Care Education/Training Program
DX: B34.9 Viral infection, unspecified (principal); I49.8 Other specified cardiac arrhythmias; R06.02 Shortness of breath; Z20.822 Contact with and (suspected) exposure to COVID-19
CPT/HCPCS: 71045; 80053; 81003; 81015; 83605; 83690; 84145; 85025; 85610; 85730; 87040; 87633; 93005; 93010; 99284

== ENCOUNTER 2024-01-06 13:42 | Inpatient (IN) | payer MEDICARE, SELFPAY ==
[2024-01-06] VITALS (22 sets, daily range): BP systolic 120–150; BP diastolic 57–98; PULSE 79–103; RESP 18–37; TEMP 36.6–38.5; O2SAT 93–99; BMI 22.3; BMI 21.8
--- NOTE | 2024-01-06 14:38 | DI.RAD.S_ITS ---
PROCEDURE: XR CHEST 1V INDICATIONS: chest pain TECHNIQUE: One view of the chest was acquired. COMPARISON: [facility], CR, XR CHEST 1V, 01/03/2024, 14:19. FINDINGS: Surgical changes and devices: None. Lungs and pleura: Lungs are clear. No pleural effusions or pneumothorax. Mediastinum: Mediastinal contours appear normal. Heart size is normal. Bones and chest wall: No suspicious bony lesions. Overlying soft tissues appear unremarkable. IMPRESSION: No acute cardiopulmonary abnormality is seen. Dictated by: Jairon Fountain M.D. on 01/06/2024 at 13:55 Approved by: Jairon Fountain M.D. on 01/06/2024 at 13:56
[2024-01-06 14:44] LABS: Add Manual Diff / Slide Review NO; Basophils Absolute Auto 0 /uL (0-100); Basophils Percent Auto 0.5 % (0-2); Eosinophils Absolute Auto 0 /uL (0-450); Eosinophils Percent Auto 0.1 % (2-4); Hematocrit 38.6 % (41-53); Hemoglobin 13.5 g/dL (13.5-17.5); Lymphocytes Absolute Auto 400 /uL (1100-4500); Lymphocytes Percent Auto 4.3 % (25-40); Mean Corpuscular Hemoglobin 30.4 PG (26-34); Mean Corpuscular Volume 86.7 fL (80-100); Monocytes Absolute Auto 300 /uL (0-900); Monocytes Percent Auto 3.2 % (3-14); Neutrophils Absolute Auto 7700 /uL (1500-7000); Neutrophils Percent Auto 91.9 % (50-75); Platelet Count 123 X10^3/uL (150-400); Red Blood Cell Count 4.45 X10^6/uL (4.5-5.9); Red Cell Distribution Width 13.4 % (11.6-14.8); White Blood Cell Count 8.3 X10^3/uL (4.5-11.0)
[2024-01-06 14:46] LABS: Prothrombin Time 11.9 SECONDS (9.4-12.5)
[2024-01-06 14:49] LABS: PTT Partial Thromboplastin Tim 36 SECONDS (25.1-36.5)
[2024-01-06 14:51] LABS: Alanine Aminotransferase 57 IU/L (<50); Albumin 3.6 g/dL (3.5-5.0); Albumin Globulin Ratio 1.3 (1.0-2.8); Alkaline Phosphatase 68 U/L (38-126); Aspartate Aminotransferase 95 IU/L (17-59); BUN Creatinine Ratio 15.7 (6-22); Bilirubin Total 0.6 mg/dL (0.2-1.3); Blood Urea Nitrogen 17 mg/dL (9-20); Calcium 7.6 mg/dL (8.4-10.2); Carbon Dioxide 24 mmol/L (22-32); Chloride 95 mmol/L (98-107); Creatine Kinase 222 U/L (55-170); Estimated Glomerular Filt Rate > 60 mL/min (>60); Globulin 2.7 g/dL (1.7-4.1); Glucose 153 mg/dL (80-110); HEMOLYSIS < 15 (0-50); Lipase 143 U/L (23-300); Magnesium 2.1 mg/dL (1.6-2.3); Potassium 3.7 mmol/L (3.4-5.1); Sodium 126 mmol/L (137-145); Total Protein 6.3 g/dL (6.3-8.2)
--- NOTE | 2024-01-06 15:11 | ED.WEAKNESS ---
HPI - Weakness General Chief complaint: Weakness Stated complaint: seen t-4 for virus tested negative symptoms back Time Seen by Provider: 01/06/24 15:07 Source: patient Mode of arrival: Ambulatory History of Present Illness HPI Narrative: Patient is a 78-year-old male with history of arrhythmia takes metoprolol, hypertension presenting today with ongoing weakness. He was seen evaluated by myself on January 02 for weakness at that time he is low-grade temperature of a 100.8?. He would full workup blood cultures are negative respiratory panel was negative. He continues to not feel well reports he just not getting any better. While waiting in the ED he is found to have right facial droop with some slurring of speech which is new and not present on triage. Right-sided facial droop and slurred speech noted by family at bedside and by nurse both report that this is new. [id number] Related Data Home Medications Medication Instructions Recorded Confirmed aspirin 81 mg capsule 81 mg PO BEDTIME 01/06/24 01/06/24 losartan 50 mg tablet 50 mg PO BEDTIME 01/06/24 01/06/24 metoprolol succinate 25 mg 25 mg PO BEDTIME 01/06/24 01/06/24 tablet,extended release 24 hr Allergies Allergy/AdvReac Type Severity Reaction Status Date / Time No Known Drug Allergies Allergy Verified 01/03/24 13:43 Patient History Medical History Detached retina, bilateral Detached retina History of squamous cell carcinoma of skin History of colon polyps Recurrent epistaxis Hard of hearing Surgical History Status post cataract extraction of both eyes with insertion of intraocular lens History of cholecystectomy (~2010) H/O wrist surgery H/O right knee surgery (~1990) Social History household members: none Smoking Status: Never smoker alcohol intake: current Smoking Status: Never smoker alcohol intake frequency: 0-2 drinks per day Substance Use Type: does not use Exam Initial Vital Signs Initial Vital Signs: Vital Signs Temperature 100 F H 01/06/24 13:55 Pulse Rate 80 01/06/24 13:55 Respiratory Rate 18 01/06/24 13:55 Blood Pressure 126/57 L 01/06/24 13:55 Pulse Oximetry 97 01/06/24 13:55 Oxygen Delivery Method Room Air 01/06/24 13:55 GENERAL: Alert week 78-year-old male and in no acute distress. HEENT: Head atraumatic,EOMI, pupils reactive, face symmetric, moist mucous membranes CARDIOVASCULAR: Regular rate and rhythm without murmurs, rubs or gallops. RESPIRATORY: Breath sounds equal bilaterally, no wheezes rales or rhonchi. ABDOMEN: Soft, nontender. Normoactive bowel sounds all 4 quadrants. No guarding or rebound. EXTREMITIES: Normal range of motion, no clubbing or edema. Neurovascularly intact NEUROLOGICAL: Alert and oriented x4.Normal gait and speech. Cranial nerves II through XII grossly intact. Good [id number], good [id number], strength equal bilaterally, slight slurring of speech or aphasia, sensation in tact to soft touch bilaterally, no visual changes, mild right facial droop SKIN: Warm, dry, no laceration, no petechiae, no rashes or lesions. Scores NIH Stroke Scale Level of Conciousness: Alert, keenly responsive Ask month/age: Answers both questions correctly. Open/close eyes, close hand: Performs both tasks correctly Best gaze horizontal: Normal Visual montanez: No visual loss Facial palsy: Minor paralysis, flattened nasolabial fold, asymmetry on smiling Left arm drift: No drift for full 10 sec Right arm drift: No drift for full 10 sec Left leg drift: No drift for full 5 sec Right leg drift: No drift for full 5 sec Limb ataxia: Absent Sensory on face/arms/legs: Normal, no sensory loss Best language: No aphasia, normal Dysarthria: Mild to mod,some slurring Extinction or inattention: No abnormality Total NIH Stroke scale score: 2 Course Orders Ordered: ED Orders 01/06/24 14:30 Complete Blood Count AUTO DIFF Stat Comprehensive Metabolic Panel Stat Lactate (Lactic Acid) Stat Lipase Stat Magnesium Stat PTT Partial Thromboplastin Morales Stat Procalcitonin Stat Prothrombin Time INR Stat Troponin & CK Cardiac Panel Stat 01/06/24 14:38 XR chest 1V Stat EKG-12 Lead Stat 01/06/24 15:[address] angio head and neck Stat Respiratory Panel (Film Array) Stat 01/06/24 15:43 Blood Culture Stat 01/06/24 16:33 Troponin I Stat Acetaminophen (Acetaminophen 325 Mg Tablet) 650 mg PO Q6H PRN PRN Reason: Fever/Mild Pain (1-3) Hydrocodone Bitart/Acetaminophen (Hydrocodone/Acet 5/325 Tablet) 1 tab PO Q4H PRN PRN Reason: Pain, Moderate (4-6) Aspirin (Aspirin Ec 325 Mg Tablet) 325 mg PO DAILY [facility] Atorvastatin Calcium (Atorvastatin 20 Mg Tablet) 40 mg PO BEDTIME [facility] Clopidogrel Bisulfate (Clopidogrel 75 Mg Tablet) 75 mg PO DAILY [facility] Enoxaparin Sodium (Enoxaparin 40 Mg/0.4 Ml Syringe) 40 mg SUBCUT DAILY [facility] Dextrose/Sodium Chloride (Dextrose 5%-0.9% Ns) 1,000 mls @ 100 mls/hr IV CONT [facility] Piperacillin Sod/Tazobactam (Sod 3.375 gm/ Sodium Chloride) 100 mls @ 25 mls/hr IV Q8H [facility] Losartan Potassium (Losartan 50 Mg Tablet) 50 mg PO BEDTIME [facility] Metoprolol Succinate (Metoprolol Er 25 Mg Tablet) 25 mg PO BEDTIME [facility] Morphine Sulfate (Morphine 2 Mg/Ml Inj) 2 mg IV Q5MIN PRN PRN Reason: Chest Pain Naloxone HCl (Naloxone 0.4 Mg/Ml Vial) 0.2 mg IV Q2MIN PRN PRN Reason: Opiate Reversal Nitroglycerin (Nitroglycerin 0.4 Mg Sl Tab) 0.4 mg SL [id number] PRN PRN Reason: Chest Pain Ondansetron HCl (Ondansetron 4 Mg/2 Ml Inj) 4 mg IV Q8HR PRN PRN Reason: Nausea And Vomiting Sennosides (Sennosides 8.6 Mg Tablet) 17.2 mg PO BEDTIME [facility] Discontinued Medications Aspirin (Aspirin 81 Mg Chew Tab) 324 mg PO NOW ONE Stop: 01/06/24 14:39 Last Admin: 01/06/24 16:33 Dose: 324 mg Documented By: TLS Sodium Chloride (Normal Saline 0.9%) 1,000 mls @ 1,000 mls/hr IV BOLUS ONE Stop: 01/06/24 17:48 Last Infusion: 01/06/24 18:18 Dose: Infused Documented By: Admin: 01/06/24 16:59 Dose: 1,000 mls/hr Documented By: TLS Piperacillin Sod/Tazobactam (Sod 4.5 gm/ Sodium Chloride) 100 mls @ 200 mls/hr IV NOW ONE Stop: 01/06/24 17:16 Last Infusion: 01/06/24 18:18 Dose: Infused Documented By: Admin: 01/06/24 17:36 Dose: 200 mls/hr Documented By: LAW Vital Signs Vital signs: Vital Signs - 8 hr 01/06/24 13:55 01/06/24 14:23 01/06/24 14:36 Temperature 100 F H 98 F Pulse Rate 80 90 Respiratory Rate 18 31 H Blood Pressure 126/57 L Pulse Oximetry 97 96 Oxygen Delivery Method Room Air 01/06/24 15:00 01/06/24 15:00 01/06/24 15:30 Temperature Pulse Rate 90 86 Respiratory Rate 37 H 33 H Blood Pressure 139/98 H Pulse Oximetry 94 96 Oxygen Delivery Method 01/06/24 15:30 01/06/24 15:45 01/06/24 15:45 Temperature Pulse Rate 90 Respiratory Rate 33 H Blood Pressure 138/66 132/61 Pulse Oximetry 97 Oxygen Delivery Method 01/06/24 16:00 01/06/24 16:00 01/06/24 16:15 Temperature Pulse Rate 88 92 H Respiratory Rate 31 H 32 H Blood Pressure 150/69 H Pulse Oximetry 96 Oxygen Delivery Method 01/06/24 16:15 01/06/24 16:30 01/06/24 16:30 Temperature Pulse Rate 91 H Respiratory Rate 32 H Blood Pressure 143/69 H 147/69 H Pulse Oximetry 96 Oxygen Delivery Method 01/06/24 16:45 01/06/24 16:45 01/06/24 17:00 Temperature Pulse Rate 91 H Respiratory Rate 28 H Blood Pressure 150/67 H 136/64 Pulse Oximetry 96 Oxygen Delivery Method 01/06/24 17:00 01/06/24 17:15 01/06/24 17:15 Temperature Pulse Rate 91 H 82 Respiratory Rate 35 H 33 H Blood Pressure 133/66 Pulse Oximetry 94 95 Oxygen Delivery Method 01/06/24 17:30 01/06/24 17:30 01/06/24 17:45 Temperature Pulse Rate 79 81 Respiratory Rate 31 H 31 H Blood Pressure 131/60 Pulse Oximetry 95 95 Oxygen Delivery Method 01/06/24 17:45 01/06/24 18:00 01/06/24 18:00 Temperature Pulse Rate 79 Respiratory Rate 30 H Blood Pressure 128/60 129/81 Pulse Oximetry 94 Oxygen Delivery Method 01/06/24 18:15 01/06/24 18:15 Temperature Pulse Rate 99 H Respiratory Rate 31 H Blood Pressure 132/64 Pulse Oximetry 94 Oxygen Delivery Method MDM - Weakness Lab Data 01/06/24 14:30 01/06/24 14:30 Labs: Lab Results 01/06/24 01/06/24 01/06/24 Range/Units 14:30 15:11 16:33 WBC 8.3 (4.5-11.0) X10^3/uL RBC 4.45 L (4.5-5.9) X10^6/uL Hgb 13.5 (13.5-17.5) g/dL Hct 38.6 L (41-53) % MCV 86.7 (80-100) fL MCH 30.4 (26-34) PG MCHC 35.0 (30-36) % RDW 13.4 (11.6-14.8) % Plt Count 123 L (150-400) X10^3/uL Neut % (Auto) 91.9 H (50-75) % Lymph % (Auto) 4.3 L (25-40) % Vernon % (Auto) 3.2 (3-14) % Eos % (Auto) 0.1 L (2-4) % Baso % (Auto) 0.5 (0-2) % Neut # (Auto) 7700 H (2404-0225) /uL Lymph # (Auto) 400 L (5259-4369) /uL Vernon # (Auto) 300 (0-900) /uL Eos # (Auto) 0 (0-450) /uL Baso # (Auto) 0 (0-100) /uL PT 11.9 (9.4-12.5) SECONDS INR 1.0 (0.9-1.3) APTT 36 (25.1-36.5) SECONDS Sodium 126 L (137-145) mmol/L Potassium 3.7 (3.4-5.1) mmol/L Chloride 95 L (98-107) mmol/L Carbon Dioxide 24 (22-32) mmol/L BUN 17 (9-20) mg/dL Creatinine 1.08 (0.66-1.25) mg/dL Estimated GFR > 60 (>60) mL/min BUN/Creatinine Ratio 15.7 (6-22) Glucose 153 H (80-110) mg/dL Lactate 1.8 (0.7-2.1) mmol/L Calcium 7.6 L (8.4-10.2) mg/dL Magnesium 2.1 (1.6-2.3) mg/dL Total Bilirubin 0.6 (0.2-1.3) mg/dL AST 95 H (17-59) IU/L ALT 57 H (<50) IU/L Alkaline Phosphatase 68 (38-126) U/L Total Creatine Kinase 222 H (55-170) U/L Troponin I 0.131 H* 0.129 H* (0.01-0.034) ng/mL Total Protein 6.3 (6.3-8.2) g/dL Albumin 3.6 (3.5-5.0) g/dL Globulin 2.7 (1.7-4.1) g/dL Albumin/Globulin Ratio 1.3 (1.0-2.8) Lipase 143 (23-300) U/L Procalcitonin 0.577 H (<0.5) ng/mL Chlamy pneumoniae PCR Not detected (Not Detect) Adenovirus (PCR) Not detected (Not Detect) B.parapertussis DNA PCR Not detected (Not Detecte) Coronavirus OC43 (PCR) Not detected (Not Detect) Coronavirus HKU1 (PCR) Not detected (Not Detect) Coronavirus 229E (PCR) Not detected (Not Detect) SARS-CoV-2 (PCR) Not detected (Not Detecte) Coronavirus NL63 (PCR) Not detected (Not Detect) Human Metapneumovir PCR Not detected (Not Detect) Influenza Type A (PCR) Not detected (Not Detect) Influenza Type B (PCR) Not detected (Not Detect) M. pneumoniae (PCR) Not detected (Not Detect) Parainfluenza 1 (PCR) Not detected (Not Detect) Parainfluenza 2 (PCR) Not detected (Not Detect) Parainfluenza 3 (PCR) Not detected (Not Detect) Parainfluenza 4 (PCR) Not detected (Not Detect) RSV (PCR) Not detected (Not Detect) Entero/Rhino (PCR) Not detected (Not Detect) Imaging Data CT scan - head: Radiologist Impression: PROCEDURE: CT STROKE INDICATIONS: right facial droop TECHNIQUE: Noncontrast 4.5 mm thick angled axial sections acquired from the foramen magnum to the vertex, with coronal reformats. For radiation dose reduction, the following was used: automated exposure control, adjustment of mA and/or kV according to patient size. COMPARISON: None. FINDINGS: Image quality: Diagnostic. CSF spaces: Basal cisterns are patent. No extra-axial fluid collections. The ventricles are symmetric in size and shape. Brain: No intracranial bleeds or masses. There is cerebral volume loss for age, with resultant ventricular and sulcal prominence. There are periventricular and deep white matter chronic small vessel ischemic changes. There is intracranial internal carotid artery atherosclerosis. Skull and face: Calvarium and visualized facial bones appear intact, without suspicious lesions. Sinuses: Visualized sinuses and mastoids are clear. IMPRESSION: No acute intracranial pathology. Age related volume loss and mild white matter chronic small vessel ischemic changes. Findings were reported to Dr. Traore in the ER on 01/06/2024 at 3:27 p.m.. This study fulfills neurological imaging criteria for inclusion or exclusion of acute stroke therapies based on available published neurological guidelines. Dictated by: Tye Marroquin M.D. on 01/06/2024 at 15:26 CTA - brain/neck: Radiologist Impression: PROCEDURE: CT ANGIO HEAD AND NECK INDICATIONS: right facial droop TECHNIQUE: After the administration of intravenous contrast, 1 mm thick sections acquired from the aortic arch through the [place]. 3-dimensional sbuoonl-nfixhkcbv-ldjjdrcrsa (MIP) and/or volume rendering reformats were acquired of the central intracranial vasculature and neck separately. For radiation dose reduction, the following was used: automated exposure control, adjustment of mA and/or kV according to patient size. COMPARISON: [facility], CR, XR CHEST 1V, 01/06/2024, 14:39. FINDINGS: Image quality: Diagnostic. BRAIN: CSF spaces: Ventricles are normal in size and shape. Basal cisterns are patent. No extra-axial fluid collections. Brain: No significant abnormality of the brain can be seen. No area of abnormal intracranial enhancement. Skull and face: Calvarium and facial bones appear intact, without suspicious lesions. Orbits appear normal. Sinuses: Sinuses and mastoids are clear. HEAD CT ANGIOGRAPHY: Anterior circulation: Intracranial internal carotid arteries are normal in size and flow. The flow within the paired anterior cerebral arteries is normal and symmetric. The flow within the middle cerebral arteries is normal and symmetric. The anterior communicating artery is seen. No aneurysms are seen. Posterior circulation: Visualized portions of the vertebral arteries demonstrate normal caliber, and join to form a normal appearing basilar artery. Flow within the posterior cerebral arteries is normal and symmetric. No aneurysms are seen. NECK CT ANGIOGRAPHY: Carotid system: The great vessels demonstrate a conventional anatomy as they arise from the aortic arch. The origins of the common carotid arteries appear patent. The common carotid arteries demonstrate normal caliber and courses. The bifurcation regions are both widely patent. The internal carotid arteries demonstrate normal calibers and courses. Posterior circulation: The origins of the vertebral arteries both appear widely patent. The more superior extracranial portions of both vertebral arteries also demonstrate normal courses and calibers. They join to form a normal appearing basilar artery. Soft tissues: Visualized neck soft tissues demonstrate no suspicious abnormalities. There is small left pleural effusion with moderate sized infiltrate seen in posterior medial aspect of left lower lobe. Bones: No suspicious bony lesions. Visualized cervical spine appears normally aligned. IMPRESSION: 1. No hemodynamically significant stenosis or aneurysm is seen in the intracranial circulation. 2. No hemodynamically significant stenosis is seen in bilateral neck arteries. 3. Incidentally noted of small left pleural effusion with small to moderate size left lower lobe infiltrate. Any quantitative measurements of stenosis were performed using NASCET criteria. Dictated by: Tye Marroquin M.D. on 01/06/2024 at 15:37 Chest x-ray: Radiologist Impression: PROCEDURE: XR CHEST 1V INDICATIONS: chest pain TECHNIQUE: One view of the chest was acquired. COMPARISON: [facility], , XR CHEST 1V, 01/03/2024, 14:19. FINDINGS: Surgical changes and devices: None. Lungs and pleura: Lungs are clear. No pleural effusions or pneumothorax. Mediastinum: Mediastinal contours appear normal. Heart size is normal. Bones and chest wall: No suspicious bony lesions. Overlying soft tissues appear unremarkable. IMPRESSION: No acute cardiopulmonary abnormality is seen. Dictated by: Jairon Fountain M.D. on 01/06/2024 at 13:55 Approved by: Jairon Fountain M.D. on 01/06/2024 at 13:56 ECG Data Attestation: I personally reviewed and interpreted this ECG as follows: Prior ECG tracings: available for review Interpretation: Sinus rhythm with frequent PACs do not agree with atrial fibrillation appears similar to previous EKGs does ST elevation in V3 no ST depressions MDM Narrative Medical decision making narrative: MDM CC: Generalized weakness Complicating co-morbidities: Cardiac arrhythmia Corroborating data: [ ] Data collected from: [ ] Medical records reviewed: Previous ED visits Differential considered: Sepsis CVA, Exam documented above, pertinent findings include: Right facial droop mild slurring of speech NIH stroke scale 2 no partial hemianopsia or significant visual changes appreciated no other focal deficits. Appears generally weak no respiratory distress Lab Test results independently reviewed as above. Pertinent findings: WBC 8.3, hemoglobin 13.5, hematocrit 86.7 platelets 123 with left shift, INR 1.0, PTT 36, sodium 126 previously 128, potassium 3.7, chloride 95, carbon dioxide 24, BUN 17, creatinine 1, glucose 153, lactate 1.8, calcium 7.6, bilirubin 0.6, AST 95, ALT 7, troponin 0.131 with repeat 0.129, procalcitonin 0.577 previously 0.116 with lactate 1.8 Independently reviewed EKG as above: Sinus rhythm with frequent PACs no evidence of AFib Imaging studies independently reviewed: Head CT CT angio no acute CVA or large vessel occlusion Consultations: 1542 Dr. mcgrath stroke DrElva Updated patient's symptoms test results video consult appreciated. Patient is not a candidate for TNK. Recommend Plavix 1745 Dr. Burks in ED to see and evaluate patient happily accepts Treatments: Aspirin Zosyn, IV fluids Re-evaluations: Patient right facial droop continues to persist no worsening deficits Discussion: Patient presents again today with increasing weakness and ongoing symptoms. He initially had low-grade temp a couple days ago 100.8 but no source of infection found. Suspect some sort of infection. Blood cultures from a couple days ago are negative. Today again unknown source of infection he has no leukocytosis he has a normal lactate. Slightly elevated liver enzymes. Procalcitonin however is more elevated than previously so suspect some sort of bacterial infection. Urinalysis is negative. He has not having any sort of significant cough although he was complaining of shortness of breath. His vitals are stable no evidence of sepsis he has a normal lactic acid blood cultures again are pending today. Urinalysis negative respiratory panel negative. Nonetheless he has given a dose of Zosyn. He is also found to be more hyponatremic than he was previously. Previously sodium was 128 today it is 126 may also be causing some of his weakness. Unclear cause of this would suspect decreased p.o. intake. He is given 1 L of normal saline. Troponins were found to be minimally elevated without any sort of ischemic changes. He does have an arrhythmia but this seems to be stable. He has not having any sort of chest pain. Patient also likely had a stroke while in the ED with sudden onset of right-sided facial droop and some slurring of speech. For this he was given aspirin stroke intervened not a TNK patient recommends Plavix. Discharge Plan Departure Patient Disposition: Admitted As Inpatient Clinical Impression: Elevated troponin, Acute hyponatremia CVA (cerebral vascular accident) Qualifiers: CVA mechanism: unspecified Qualified Code(s): I63.9 - Cerebral infarction, unspecified Admit Date/Time: 01/06/24 18:17 Admit Provider: Frank Burks
[2024-01-06 15:26] LABS: Troponin I 0.131 ng/mL (0.01-0.034)
[2024-01-06 15:28] LABS: Lactate (Lactic Acid) 1.8 mmol/L (0.7-2.1)
[2024-01-06 15:48] LABS: Procalcitonin 0.577 ng/mL (<0.5)
--- NOTE | 2024-01-06 15:48 | PC.NURSE ---
During nursing assessment when assuming care of patient, this RN visualized a right mouth drooping and daughter at bedside stated patient had new slurring of speech. Notified charge of potential stroke and requested the first nurse who assessed the patient to come to bedside to confirm changes. First RN confirmed facial changes and provider to bedside. CT stroke protocol initiated and patient taken immediately to CT.
[2024-01-06 16:14] LABS: Adenovirus Not Detected (Not Detect); B. parapertussis Not Detected (Not Detecte); Bordetella pertussis Not Detected (Not Detect); Chlamydophila pneumoniae Not Detected (Not Detect); Coronavirus 229E Not Detected (Not Detect); Coronavirus HKU1 Not Detected (Not Detect); Coronavirus NL 63 Not Detected (Not Detect); Coronavirus OC43 Not Detected (Not Detect); Human Metapneumovirus Not Detected (Not Detect); Human Rhinovirus/Enterovirus Not Detected (Not Detect); Influenza A Not Detected (Not Detect); Influenza B Not Detected (Not Detect); Mycoplasma pneumoniae Not Detected (Not Detect); Parainfluenza Virus 1 Not Detected (Not Detect); Parainfluenza Virus 2 Not Detected (Not Detect); Parainfluenza Virus 3 Not Detected (Not Detect); Parainfluenza Virus 4 Not Detected (Not Detect); Respiratory Syncytial Virus Not Detected (Not Detect); SARS- CoV-2 Not Detected (Not Detecte)
[2024-01-06] MEDS: ASPIRIN 81 MG CHEW TAB 324 MG PO (16:33)
[2024-01-06] MEDS: SODIUM CHLORIDE 0.9% 1,000 ML 1000 ML IV (16:59)
[2024-01-06 17:09] LABS: Troponin I 0.129 ng/mL (0.01-0.034)
[2024-01-06] MEDS: PIPERACILLIN/TAZO 4.5 GM in SODIUM CHLORIDE 0.9% 100 ML IV (17:36)
--- NOTE | 2024-01-06 18:20 | P.HP_ITS ---
History of Present Illness History of Present Illness Date Patient Seen: 01/06/24 Time Patient Seen: 18:20 Chief complaint: Right facial muscle weakness and slurred speech Narrative: 78-year-old male patient with a past medical history of hypertension right knee surgery right wrist surgery retinal detachment and cholecystectomy with a family history of stroke and heart disease is evaluated in the emergency department because of increasing weakness. Patient's history is obtained from the patient and daughter who is at his bedside. Patient lives independently at home. Patient presented to the emergency department on the of this month. Concerned about symptoms consistent with viral illness. Workup at that time included blood counts lactate lipase procalcitonin blood cultures and urinalysis. Patient had a temperature of 100.8?. Patient had no elevation of white blood cell count mild hyponatremia. Nasal PCR showed no signs of infection and urinalysis showed blood but no nitrates or leukocytes. Chest x- ray showed no infiltrates. Patient was discharged home with unspecified viral illness. Patient's daughter came up to join him. Daughter states patient states over the last few days he is having increasing weakness. Slow speech and thought. Feeling uncoordinated loss of appetite. Feeling like he has to breathe a little bit more challenging. She came up to visit from [place]. And patient was definitely not himself. They had a good dinner last night was hoping he would wake up and feel better in the morning and he was not better. Was weak and slept in an really could not get out of bed she noticed use a little bit uncoordinated so brought him back into the emergency department he had similar symptoms of feeling short of breath mild increased work of breathing just weak in general. On evaluation in the emergency department after admission patient then began to have right-sided facial weakness with slurring of speech. Concerning for cerebrovascular injury. That point CT of the head and angiogram was done and stroke neurological consultation was obtained. Recommended aspirin and statin further admission to the hospital. Current patient is alert and awake good historian. He has some obvious right- sided facial droop. He knows where he is. He is complaining of weakness mild decreased breathing. And fevers. Laboratory testing was reviewed. Patient has a low-sodium normal kidney function platelet count is mildly low. INR and protime is normal. Patient has elevated liver enzymes of 95 and 57 a troponin which is 0.1-[address] angiogram reviewed which showed no intracranial findings. Incidentally note of a pleural effusion on his CT scan of his neck respiratory viral testing is negative. [facility] Medical History Detached retina, bilateral Detached retina History of squamous cell carcinoma of skin History of colon polyps Recurrent epistaxis Hard of hearing Surgical History Status post cataract extraction of both eyes with insertion of intraocular lens History of cholecystectomy (~2010) H/O wrist surgery H/O right knee surgery (~1990) Social History household members: spouse Smoking Status: Never smoker alcohol intake: current Meds Home Medications and Allergies Home Medications Medication Instructions Recorded Confirmed Type aspirin 81 mg capsule 81 mg PO BEDTIME 01/06/24 01/06/24 History losartan 50 mg tablet 50 mg PO BEDTIME 01/06/24 01/06/24 History metoprolol succinate 25 mg 25 mg PO BEDTIME 01/06/24 01/06/24 History tablet,extended release 24 hr Allergies Allergy/AdvReac Type Severity Reaction Status Date / Time No Known Drug Allergies Allergy Verified 01/03/24 13:43 Exam Vital Signs (past 8 hours): - 01/06/24 13:55 01/06/24 14:23 Temperature 100 F H 98 F Pulse Rate 80 Respiratory Rate 18 Blood Pressure 126/57 L Pulse Oximetry 97 Oxygen Delivery Method Room Air Oxygen Delivery Method Room Air Narrative Exam Narrative: Gen.: Alert generally weak good historian HEENT: Pupils equal round and reactive or mucosa is moist patient has some obvious right-sided facial muscle weakness. Cardio: S1-S2 irregular rhythm no murmur appreciated Respiratory: Lungs showed mild increased work of breathing. I do not appreciate any crackles or wheezes Abdomen: [Soft nontender no rebound or guarding no liver spleen enlargement no appreciable hernias] Extremities: Patient has full range of motion and good strength in his lower extremities no edema Neurologic: Facial muscle weakness. Patient has coordinated speech and appropriate word finding. Objective Labs 01/06/24 14:30 01/06/24 14:30 Labs: Laboratory Results - last 24 hr 01/06/24 01/06/24 01/06/24 14:30 15:11 16:33 WBC 8.3 RBC 4.45 L Hgb 13.5 Hct 38.6 L MCV 86.7 MCH 30.4 MCHC 35.0 RDW 13.4 Plt Count 123 L Neut % (Auto) 91.9 H Lymph % (Auto) 4.3 L [place] % (Auto) 3.2 Eos % (Auto) 0.1 L Baso % (Auto) 0.5 Neut # (Auto) 7700 H Lymph # (Auto) 400 L [place] # (Auto) 300 Eos # (Auto) 0 Baso # (Auto) 0 PT 11.9 INR 1.0 APTT 36 Sodium 126 L Potassium 3.7 Chloride 95 L Carbon Dioxide 24 BUN 17 Creatinine 1.08 Estimated GFR > 60 BUN/Creatinine Ratio 15.7 Glucose 153 H Lactate 1.8 Calcium 7.6 L Magnesium 2.1 Total Bilirubin 0.6 AST 95 H ALT 57 H Alkaline Phosphatase 68 Total Creatine Kinase 222 H Troponin I 0.131 H* 0.129 H* Total Protein 6.3 Albumin 3.6 Globulin 2.7 Albumin/Globulin Ratio 1.3 Lipase 143 Procalcitonin 0.577 H Chlamy pneumoniae PCR Not detected Adenovirus (PCR) Not detected B.parapertussis DNA PCR Not detected Coronavirus OC43 (PCR) Not detected Coronavirus HKU1 (PCR) Not detected Coronavirus 229E (PCR) Not detected SARS-CoV-2 (PCR) Not detected Coronavirus NL63 (PCR) Not detected Human Metapneumovir PCR Not detected Influenza Type A (PCR) Not detected Influenza Type B (PCR) Not detected M. pneumoniae (PCR) Not detected Parainfluenza 1 (PCR) Not detected Parainfluenza 2 (PCR) Not detected Parainfluenza 3 (PCR) Not detected Parainfluenza 4 (PCR) Not detected RSV (PCR) Not detected Entero/Rhino (PCR) Not detected Assessment & Plan Assessment and plan (1) Elevated troponin: Status: Acute (2) CVA (cerebral vascular accident): Qualifiers: CVA mechanism: unspecified Qualified Code(s): I63.9 - Cerebral infarction, unspecified Status: Acute Plan Right facial weakness and difficulty of speech concerning for cerebrovascular injury either CVA or TIA. Patient had CT of head and angiogram which was normal neurology was consulted who recommended aspirin Plavix and further workup and evaluation. Patient will be started on aspirin and Plavix. Patient will have an MRI of his brain. Patient will be placed on telemetry monitoring and an echocardiogram. Patient will have physical therapy occupational therapy and speech therapy. His blood pressure will be monitored as well as his ins and outs. He will be started back on his home blood pressure medication. Fever and weakness patient with fever and weakness. Mildly elevated procalcitonin. Patient was found to have a pleural effusion on his CT scan but not visualized in his chest x-ray his blood culture and urinalysis are pending. I would like to do a CT of his chest with contrast to rule out underlying infection or neoplasm and further workup why he is having shortness of breath and fever. Patient will be covered prophylactically with antibiotics he was given a dose of Zosyn in the emergency department. Once we know more this potentially can be stopped. Weakness EKG septal infarct of indeterminate with sinus tachycardia with premature atrial complexes. Patient also has elevated cardiac enzymes with normal kidney function. Patient's troponins are not significantly elevated I do not see any acute ST changes on his echocardiogram and does not need acute cardiac intervention he is not complaining of chest pain. I am concerned that he has an elevated troponin he is weak his CPK is normal. Like to do an echocardiogram add in a CRP and BNP. Rule out underlying endocarditis myocarditis or other heart symptoms. Echocardiogram will be ordered for further evaluation of this. Will do serial cardiac enzymes and troponins. Weakness and abdominal pain with elevated LFTs patient has elevated LFTs mild elevated procalcitonin significant weakness alk-phos is normal. I would like to do a CT of his abdomen and pelvis to rule out underlying intra-abdominal pathology and further workup and evaluation of his fever liver enzyme elevation Hyponatremia. Unspecified causes at this point. Patient will be placed on normal saline and will continue to evaluate this during his hospital stay. Hypertension patient's blood pressure is normal we will continue his antihypertensive medication DVT prophylaxis with Lovenox Code status full code Inpatient [facility] Charge Codes Initial inpatient/observation care: [id number]
--- NOTE | 2024-01-06 18:40 | DI.ECHO.S_ITS ---
[place] +---------+ [facility] : : [address] : : [place] : : [id number] : : Phone: [phone] Echocardiogram Report + + :Name: ISADORA FONTANEZ Study Date: 01/07/2024 Height: 71 in : :[facility] ReadingLocation: Weight: 160 lb : : Gender: Male BSA: 1.9 m2 : :: 1945 Age: 78 yrs BP: 133/73 mmHg: :Reason For Study: ELEVATED TROPONINS, MYOCARDITIS? : :Ordering Physician: ZOE, : :TAYLA Performed By: Nuria Clark : :Referring: TAYLA ENRIQUEZ : + + Interpretation Summary Normal left ventricle size with ejection fraction 55-60%. The left atrium is moderately dilated. No significant valvular abnormality. The ascending aorta is mildly enlarged. Comparison is made with the echocardiogram of 01/27/2021, no significant change. Procedure: A two-dimensional transthoracic echocardiogram with color flow and Doppler was performed. The study quality was technically adequate. Comparison is made with the echocardiogram of 01/27/2021. The heart rate ranged between 75-95 bpm during the study. Left Ventricle: The left ventricle is normal in size and wall thickness. The ejection fraction is estimated to be 55-60%. There are no focal wall motion abnormalities. Diastolic parameters suggest a relaxation abnormality of the left ventricle, consistent with probable normal filling pressures. Right Ventricle: The right ventricle grossly appears normal in size with probable normal systolic function. Atria: The left atrium is moderately dilated. Right atrial size is normal. There is no Doppler evidence for an interatrial shunt. Mitral Valve: There is borderline mitral valve prolapse. There is trace mitral regurgitation. Aortic Valve: The aortic valve is trileaflet. The aortic valve opens well. There is no aortic valve stenosis. No aortic regurgitation is present. Tricuspid Valve: The tricuspid valve is normal in structure and function. Pulmonary artery pressures cannot be estimated because of the lack of a measurable TR jet velocity. Pulmonic Valve: The pulmonic valve is not well seen, but is grossly normal. There is mild to moderate pulmonic regurgitation. Great Vessels: The aortic root is normal size. The ascending aorta is mildly enlarged. The IVC is dilated (diameter is greater than 2.1 cm) yet it collapses greater than 50% with a sniff. This suggests a right atrial pressure of 8 mm Hg. Pericardium/ Pleura There is no pericardial effusion. There is no pleural effusion. MMode/2D Measurements & Calculations LVIDd: 5.4 cm LVOT diam: 2.2 cm LVIDs: 3.6 cm Ao root diam: 3.7 cm FS: 33.1 % asc Aorta Diam: 3.9 cm IVSd: 1.1 cm Ao Arch Diam (Prox Trans): 2.8 cm LVPWd: 1.1 cm LV chase. diameter/BSA (cm/m^2): 2.8 LV sys. diameter/BSA (cm/m^2): 1.9 LA A2 area: 27.3 cm2 RA long axis: 4.9 cm LA A4 area: 18.4 cm2 RA area: 13.1 cm2 LA length (vol): 4.8 cm RA vol: 29.8 ml LA vol: 88.7 ml RA : 15.6 ml/m2 LA vol index: 46.3 ml/m2 IVC diam: 2.1 cm RVD1 (basal): 3.6 cm TAPSE: 2.7 cm Doppler Measurements & Calculations Ao V2 max: 119.0 cm/sec LVOT Max Ubaldo: 97.8 cm/sec Ao V2 mean: 90.9 cm/sec LV V1 max P.8 mmHg Ao max P.7 mmHg LV V1 VTI: 16.8 cm Ao mean P.5 mmHg ALETHEA(I,D): 2.9 cm2 Ao V2 VTI: 22.5 cm ALETHEA(V,D): 3.2 cm2 sev ratio: 0.75 ALETHEA indexed to BSA (cm^2/m^2): 1.5 MV E max ubaldo: 81.7 cm/sec PA V2 max: 110.3 cm/sec MV A max ubaldo: 79.4 cm/sec PA V2 mean: 73.2 cm/sec MV E/A: 1.0 PA mean P.5 mmHg Med Peak E' Ubaldo: 6.9 cm/sec PA pr(Accel): 37.9 mmHg E/E' med: 11.9 Lat Peak E' Ubaldo: 5.2 cm/sec E/E' lat: 15.6 E/e' average: 13.7 MV dec time: 0.21 sec SV(LVOT): 66.1 ml Electronically signed by: Jory Bender on Reading Physician:01/07/2024 09:42 AM
--- NOTE | 2024-01-06 18:43 | DI.MRI.S_ITS ---
PROCEDURE: MR HEAD/BRAIN WO CON INDICATIONS: Right facial droop with weakness and speech difficulty TECHNIQUE: Non-contrast axial T1 spin echo, axial T2 fast spin echo, sagittal and axial FLAIR, coronal T2 fast spin echo, axial gradient echo, axial diffusion and ADC through the brain. COMPARISON: [facility], CT, CT STROKE, 01/06/2024, 15:19. [facility], CT, CT ANGIO HEAD AND NECK, 01/06/2024, 15:19. FINDINGS: Image quality: Excellent. CSF spaces: Ventricles appear symmetric in size and shape. Basal cisterns are patent. No extra-axial fluid collections. Brain: No intracranial bleeds or mass effects. There is cerebral volume loss for age. There are very mild periventricular and deep white matter chronic small vessel ischemic changes. Brainstem appears normal. Diffusion-weighted images show no acute infarct. No chronic ischemic insults. Normal intravascular flow voids are present. Skull and face: Calvarial bone marrow is normal in signal. Orbits are normal. Sinuses: Sinuses and mastoids are clear. IMPRESSION: Negative brain MRI for patient age. Very mild small vessel ischemic change. No acute intracranial process. Dictated by: Emigdio Campbell M.D. on 01/07/2024 at 10:37 Approved by: Emigdio Campbell M.D. on 01/07/2024 at 10:38
--- NOTE | 2024-01-06 18:50 | DI.CT.S_ITS ---
PROCEDURE: CT CHEST ABD PEL W CON INDICATIONS: fever eleveted LFT, FEVER PLEURAL EFFUSION TECHNIQUE: After the administration of intravenous contrast, 5 mm thick sections acquired from the lung apices to the symphysis. 5 mm coronal and sagittal reformats were performed, with additional 7 mm MIP reformats through the lungs. For radiation dose reduction, the following was used: automated exposure control, adjustment of mA and/or kV according to patient size. COMPARISON: [facility], CT, CT ANGIO HEAD AND NECK, 01/06/2024, 15:19. FINDINGS: Image quality: Excellent. CHEST: Lower Neck: No enlarged lymph nodes. Thyroid: No thyroid nodules which require sonographic follow up, per consensus guidelines. Axillae: No enlarged lymph nodes. Chest Wall: Unremarkable. Lungs and Pleura: No pneumothorax or pleural effusions. There is dense left lower lobe pneumonia the lateral left lobe seen on series image 89 a 3 mm soft tissue, near the pleural surface. Heart: Heart size is normal. No pericardial effusion. Thoracic Vessels: The aorta and pulmonary arteries demonstrate normal size. Mediastinum and Maria Fernanda: No enlarged lymph nodes. Esophagus: No wall thickening. No hiatal hernia. ABDOMEN: Liver: No solid mass. Gallbladder: No radiopaque gallstones or wall thickening. Biliary ducts: No biliary dilation. Pancreas: No ductal dilation. Spleen: Size is within normal limits. Adrenal Glands: No adrenal nodules. Kidneys and Ureters: No hydronephrosis. No solid mass. No complex renal cystic lesion which requires follow up. Stomach and Bowel: Normal colonic caliber, without significant wall thickening. Peritoneum: No abnormal intraperitoneal fluid. No free air. Ventral Wall: No significant ventral hernia. Abdominal Nodes: No retroperitoneal or mesenteric adenopathy by size criteria. Vessels: Aorta and inferior vena cava are normal in size. PELVIS: Pelvic Organs: Unremarkable. Bladder: No bladder wall thickening, accounting for underdistention. Pelvic Nodes: No enlarged lymph nodes. Miscellaneous: No inguinal hernias are seen. Bones: No aggressive osseous abnormality. IMPRESSION: 1. Dense pneumonia left lower lobe. No evidence of parapneumonic pleural effusion. 2. 3 mm lateral left upper lobe soft tissue pulmonary nodule, nonspecific. Follow-up [address] scanning is recommended to assess for interval change that would indicate presence of early malignancy. 3. Prior cholecystectomy. Dictated by: Cayetano Gee M.D. on 01/06/2024 at 20:19 Approved by: Cayetano Gee M.D. on 01/06/2024 at 20:26
[2024-01-06 19:15] LABS: Cholesterol 66 mg/dL (140-199); HDL Cholesterol 24 mg/dL (40-60); LDL Cholesterol Calculated 29 mg/dL (<100); Triglycerides 66 mg/dL (35-150)
[2024-01-06 19:25] LABS: NT-proBNP (BNP-Adult 18+) 7160 pg/mL (<450)
[2024-01-06 19:28] LABS: Troponin I 0.112 ng/mL (0.01-0.034)
[2024-01-06 19:48] LABS: C-Reactive Protein Quant 27.2 mg/dL (<1.0)
[2024-01-06] MEDS: METOPROLOL ER 25 MG TABLET PO (20:53)
[2024-01-06] MEDS: ATORVASTATIN 20 MG TABLET 40 MG PO (20:53)
[2024-01-06] MEDS: DEXTROSE 5%-0.9% NS 1,000 ML 100 ML IV (20:54)
[2024-01-06] MEDS: LOSARTAN 50 MG TABLET PO (20:54)
[2024-01-07] VITALS (11 sets, daily range): BP systolic 125–141; BP diastolic 69–77; PULSE 73–88; RESP 16–18; TEMP 36.9–38.4; O2SAT 92–96
[2024-01-07] MEDS: PIPERACILLIN/TAZO 3.375 GM in SODIUM CHLORIDE 0.9% 100 ML IV ×3 (00:36→18:09)
[2024-01-07 02:57] LABS: Add Manual Diff / Slide Review NO; Basophils Absolute Auto 0 /uL (0-100); Basophils Percent Auto 0.2 % (0-2); Eosinophils Absolute Auto 0 /uL (0-450); Eosinophils Percent Auto 0.1 % (2-4); Hematocrit 35.3 % (41-53); Hemoglobin 12.2 g/dL (13.5-17.5); Lymphocytes Absolute Auto 300 /uL (1100-4500); Lymphocytes Percent Auto 5.1 % (25-40); Mean Corpuscular HGB Conc 34.6 % (30-36); Mean Corpuscular Volume 86.7 fL (80-100); Monocytes Absolute Auto 200 /uL (0-900); Monocytes Percent Auto 3.4 % (3-14); Neutrophils Absolute Auto 5800 /uL (1500-7000); Neutrophils Percent Auto 91.2 % (50-75); Platelet Count 105 X10^3/uL (150-400); Red Blood Cell Count 4.07 X10^6/uL (4.5-5.9); Red Cell Distribution Width 13.5 % (11.6-14.8); White Blood Cell Count 6.3 X10^3/uL (4.5-11.0)
[2024-01-07 03:24] LABS: Alanine Aminotransferase 59 IU/L (<50); Albumin 2.8 g/dL (3.5-5.0); Albumin Globulin Ratio 1.1 (1.0-2.8); Alkaline Phosphatase 66 U/L (38-126); Aspartate Aminotransferase 108 IU/L (17-59); BUN Creatinine Ratio 16.9 (6-22); Bilirubin Total 0.6 mg/dL (0.2-1.3); Blood Urea Nitrogen 15 mg/dL (9-20); Carbon Dioxide 19 mmol/L (22-32); Chloride 100 mmol/L (98-107); Estimated Glomerular Filt Rate > 60 mL/min (>60); Globulin 2.5 g/dL (1.7-4.1); Glucose 123 mg/dL (80-110); HEMOLYSIS < 15 (0-50); Magnesium 2.1 mg/dL (1.6-2.3); Potassium 3.6 mmol/L (3.4-5.1); Sodium 125 mmol/L (137-145); Total Protein 5.3 g/dL (6.3-8.2)
[2024-01-07 03:57] LABS: Troponin I 0.106 ng/mL (0.01-0.034)
[2024-01-07] MEDS: ENOXAPARIN 40 MG/0.4 ML SYRINGE SUBCUT (08:19)
[2024-01-07] MEDS: ASPIRIN EC 325 MG TABLET PO (08:19)
[2024-01-07] MEDS: CLOPIDOGREL 75 MG TABLET PO (08:19)
--- NOTE | 2024-01-07 09:27 | PM.PN.1 ---
Subjective Subjective Date Patient Seen: 01/07/24 Time Patient Seen: 08:50 Interval history: cc: weakness Pr reports he feels pretty good today - eating breakfast sausage and hashbrowns no trouble - no facial droop or arm sagging - got echo still pending MRI. Breathing ok on room air but easily exhausted on any exertion with junky cough Exam Vital Signs (past 8 hours): - 01/07/24 04:15 01/07/24 08:00 Temperature 99.7 F H 101.2 F H Pulse Rate 82 86 Respiratory Rate 18 Blood Pressure 137/73 125/69 Pulse Oximetry 92 93 Oxygen Flow Rate 0 0 Oxygen Delivery Method Room Air Oxygen Flow Rate 0 Narrative Exam Narrative: propped up in bed eating breakfast Resp Other: junky coughbut moving air ok able to speak in full sentences on room air at rest Cardio Other: regular rate s1/s2 GI Other: soft nontender active bowel sounds Neuro Other: alert and oriented normal smile and grimace tongue extends midline, clear voice, good comprehension, no arm/leg lag, no marked facial droop evident. Extrem Other: moving all, no pedal edema Objective Labs 01/07/24 02:50 01/07/24 02:50 Labs: Laboratory Results - last 24 hr 01/06/24 01/06/24 01/06/24 14:30 15:11 16:33 WBC 8.3 RBC 4.45 L Hgb 13.5 Hct 38.6 L MCV 86.7 MCH 30.4 MCHC 35.0 RDW 13.4 Plt Count 123 L Neut % (Auto) 91.9 H Lymph % (Auto) 4.3 L Alexander % (Auto) 3.2 Eos % (Auto) 0.1 L Baso % (Auto) 0.5 Neut # (Auto) 7700 H Lymph # (Auto) 400 L Alexander # (Auto) 300 Eos # (Auto) 0 Baso # (Auto) 0 PT 11.9 INR 1.0 APTT 36 Sodium 126 L Potassium 3.7 Chloride 95 L Carbon Dioxide 24 BUN 17 Creatinine 1.08 Estimated GFR > 60 BUN/Creatinine Ratio 15.7 Glucose 153 H Lactate 1.8 Calcium 7.6 L Magnesium 2.1 Total Bilirubin 0.6 AST 95 H ALT 57 H Alkaline Phosphatase 68 Total Creatine Kinase 222 H Troponin I 0.131 H* 0.129 H* C-Reactive Protein NT-Pro-B Natriuret Pep Total Protein 6.3 Albumin 3.6 Globulin 2.7 Albumin/Globulin Ratio 1.3 Triglycerides Cholesterol LDL Cholesterol, Calc HDL Cholesterol Lipase 143 Procalcitonin 0.577 H Chlamy pneumoniae PCR Not detected Adenovirus (PCR) Not detected B.parapertussis DNA PCR Not detected Coronavirus OC43 (PCR) Not detected Coronavirus HKU1 (PCR) Not detected Coronavirus 229E (PCR) Not detected SARS-CoV-2 (PCR) Not detected Coronavirus NL63 (PCR) Not detected Human Metapneumovir PCR Not detected Influenza Type A (PCR) Not detected Influenza Type B (PCR) Not detected M. pneumoniae (PCR) Not detected Parainfluenza 1 (PCR) Not detected Parainfluenza 2 (PCR) Not detected Parainfluenza 3 (PCR) Not detected Parainfluenza 4 (PCR) Not detected RSV (PCR) Not detected Entero/Rhino (PCR) Not detected 01/06/24 01/07/24 18:55 02:50 WBC 6.3 RBC 4.07 L Hgb 12.2 L Hct 35.3 L MCV 86.7 MCH 30.0 MCHC 34.6 RDW 13.5 Plt Count 105 L Neut % (Auto) 91.2 H Lymph % (Auto) 5.1 L Alexander % (Auto) 3.4 Eos % (Auto) 0.1 L Baso % (Auto) 0.2 Neut # (Auto) 5800 Lymph # (Auto) 300 L Alexander # (Auto) 200 Eos # (Auto) 0 Baso # (Auto) 0 PT INR APTT Sodium 125 L Potassium 3.6 Chloride 100 Carbon Dioxide 19 L BUN 15 Creatinine 0.89 Estimated GFR > 60 BUN/Creatinine Ratio 16.9 Glucose 123 H Lactate Calcium 7.0 L Magnesium 2.1 Total Bilirubin 0.6 AST 108 H ALT 59 H Alkaline Phosphatase 66 Total Creatine Kinase Troponin I 0.112 H 0.106 H C-Reactive Protein 27.2 H NT-Pro-B Natriuret Pep 7160 H Total Protein 5.3 L Albumin 2.8 L Globulin 2.5 Albumin/Globulin Ratio 1.1 Triglycerides 66 Cholesterol 66 L LDL Cholesterol, Calc 29 HDL Cholesterol 24 L Lipase Procalcitonin Chlamy pneumoniae PCR Adenovirus (PCR) B.parapertussis DNA PCR Coronavirus OC43 (PCR) Coronavirus HKU1 (PCR) Coronavirus 229E (PCR) SARS-CoV-2 (PCR) Coronavirus NL63 (PCR) Human Metapneumovir PCR Influenza Type A (PCR) Influenza Type B (PCR) M. pneumoniae (PCR) Parainfluenza 1 (PCR) Parainfluenza 2 (PCR) Parainfluenza 3 (PCR) Parainfluenza 4 (PCR) RSV (PCR) Entero/Rhino (PCR) [facility] Medical History Detached retina, bilateral Detached retina History of squamous cell carcinoma of skin History of colon polyps Recurrent epistaxis Hard of hearing Surgical History Status post cataract extraction of both eyes with insertion of intraocular lens History of cholecystectomy (~2010) H/O wrist surgery H/O right knee surgery (~1990) Social History household members: none Smoking Status: Never smoker alcohol intake: current Assessment & Plan Assessment & Plan narrative: #Right facial weakness and difficulty of speech on presentation Initial imaging was negative, symptoms seem to be improved this morning but still concerned for possible stroke and MRI is pending for this morning. Continue aspirin and Plavix per neuro recommendations with tele and echo. #Pneumonia, bacterial, with fever and weakness with mildly elevated procalcitonin. Patient was found to have a pleural effusion on his CT scan but not visualized in his chest x-ray his blood culture and urinalysis are pending. Seems to be doing ok on Zosyn, continue. No need for room air - hopefully suitable for orals and DC home with daughter tomorrow #EKG showing septal infarct of indeterminate with sinus tachycardia with premature atrial complexes and elevated cardiac enzymes with normal kidney function. Echo read pending, suspect this is 2/2 pneumonia Weakness and abdominal pain with elevated LFTs patient has elevated LFTs mild elevated procalcitonin significant weakness alk-phos is normal. I would like to do a CT of his abdomen and pelvis to rule out underlying intra-abdominal pathology and further workup and evaluation of his fever liver enzyme elevation #Hyponatremia He has been living alone - wieght is stable but not clear how good nutrition has been .encourage PO intake, salt tabs, monitor. #Primary hypertension stable BP continue home meds dispo: improving clinically, perhaps home tomorrow with family on oral meds Code: full DVT prophylaxis with Lovenox ASA plavix Code: full MDM: daughter Quality VTE Deep Vein Thrombosis/Pulmonary Embolism Present on Admission: No
--- NOTE | 2024-01-07 10:45 | PT.IIE ---
Current Diagnoses Cerebral infarction, unspecified (01/06/24) Other specified abnormal findings of blood chemistry (01/06/24) Surgical History (Last Reviewed 01/03/24 @ 16:16 by Susannah Traore DO) H/O right knee surgery (~1990) H/O wrist surgery History of cholecystectomy (~2010) Status post cataract extraction of both eyes with insertion of intraocular lens Medical History (Last Reviewed 01/03/24 @ 16:16 by Susannah Traore DO) Detached retina Detached retina, bilateral Hard of hearing History of colon polyps History of squamous cell carcinoma of skin Recurrent epistaxis Physical Therapy Inpatient Evaluation/Re-Eval M1 PT/OT-IP Prior Functional Status Start: 01/07/24 10:35 Freq: NEEDED Status: Active Protocol: Document 01/07/24 10:45 AW (Rec: 01/07/24 12:41 AW [id number]) Medical Review Prior Functional Status Medical History Reviewed Yes Communication Pt is an effective verbal communicator. Mobility and Gait Pt was IND in all mobility without AD at baseline. Activities of Daily Living and IADL's Pt was IND in all ADLs and IADLs at baseline. 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 Pt has a cleaning service that comes in once every 3 weeks to do a deep clean. Social History Household Members none Living Arrangements House Number of Floors (Floors) Two Floors Number of Stairs To Enter/Railing? no steps to enter. Full flight up to second floor but doesn' t need to go up there. Home Environment Standard Height Toilet,Walk in Shower Home Equipment Hand Held Shower,Grab Bars In Shower Employment Status Retired Additional Social History Comment Pt has a flat bed. He lives alone but has cats. Litter box is upstairs. 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 His daughter works from home and will be able to stay with patient as long as needed at discharge. M2 PT-IP Current Condition Start: 01/07/24 08:50 Freq: NEEDED Status: Active Protocol: Document 01/07/24 10:45 AW (Rec: 01/07/24 12:41 AW [id number]) Physical Therapy Current Condition Current Condition Evaluation Date 01/07/24 Treatment Diagnosis CVA rule out, PNA, impaired mobility Onset Date 01/03/24 M3 PT-IP Subjective Start: 01/07/24 08:50 Freq: NEEDED Status: Active Protocol: Document 01/07/24 10:45 AW (Rec: 01/07/24 12:41 AW [id number]) Subjective Physical Therapy Visit Type Type Initial Evaluation Visit Start Time 10:27 Visit Stop Time 10:45 Number of FACING BASTER Visits 0 Physical Therapy Visit Comments Patient Comments Pt is just getting back from MRI, is willing to participate with PT assessment. Patient Goals Improve energy and breathing. Return home. Therapy Pain Assessment Pain When Pain Assessed During Mobility Pain Present Pain Present Denied Pain M4 PT-IP Mobility and Gait Start: 01/07/24 08:50 Freq: NEEDED Status: Active Protocol: Document 01/07/24 10:45 AW (Rec: 01/07/24 12:41 AW [id number]) PT-Bed Mobility Assessment Supine to Sit Supine to Sit Independent Sit to Supine Sit to Supine Independent PT-Transfer Assessment Sit to and From Stand Sit to and from Stand Standby Assistance Equipment Transfer Assistive Device None Transfers Transfer Destination Bed,Chair Transfer Technique Stand Step Pivot Transfer Ability Level of Assist Standby Assistance Comments Mobility Comments Pt is found transferring from wheelchair to bedside chair after MRI. Transfers are grossly SBA without AD. BP 125 /79 HR 83 SpO2 95% on room air . Pt agrees to stand, requiring SBA for transfer to bed. Bed-level transfers are independent. Pt stands from the bed and agrees to ambulate . See Gait section below. VSS as pt returns to room and is left in the chair with call light handy. Gait Assessment Gait Gait Assistance Required: Standby Assistance Distance (Feet) 150 Assistive Devices Assistive Device None,Gait Belt Gait Deviations General Gait Pattern Decreased Stride Length, Decreased Feet Clearance,Wide Based Gait Factors Limiting Gait Function Factors Limiting Gait Function Decreased Activity Tolerance, Decreased Strength Comments Gait Comments 4-item DGI score 10/12. Gait is notable for slow alexa but is generally stable. PT-Balance Assessment Sitting Balance and Reactions Static Sitting Balance Ability Normal Dynamic Sitting Balance Ability Normal Standing Balance and Reactions Static Standing Balance Ability Good Dynamic Standing Balance Ability Good Device Used no AD Functional Assessments Functional Tests 5 Times Sit to Stand 29.7 seconds with UE support to push from chair arms M5 PT-IP Objective Assessments Start: 01/07/24 08:50 Freq: NEEDED Status: Active Protocol: Document 01/07/24 10:45 AW (Rec: 01/07/24 12:41 AW [id number]) Orientation Orientation/Cognition Level of Alertness Alert Orientation Name,Day of Week,Place, Situation Language Function Ability No Deficits Noted Safety Awareness Understands Safety Issues Memory Description No Deficits Noted Comments No dysarthria or word finding difficulty noted. Gross Range of Motion Upper Extremity ROM Assessment Within Functional Limits Lower Extremity ROM Assessment Within Functional Limits Strength Upper Extremity Strength Assessment Within Functional Limits Lower Extremity Strength Assessment Within Functional Limits Hip flexion and abduction 4/5 Knee ext 5/5 flex 4+/5 Ankle DF 5/5 Comments Strength Comments No unilateral deficit Coordination Assessment Assessment Finger to Nose Test Minimal Impairment Pronation/Supination Test Minimal Impairment Coordination Comments UE coordination affected by bilateral tremors. Pt states tremors have been present ~1 week since upper respiratory symptoms started. Sensation Assessment Sensation Gross Sensation WNL Light Touch Intact Muscle Tone Comments Muscle Tone Comments New UE tremors, bilateral Other Assessments Other Other Assessments Vision, ocular motor, and vestibular screens WNL. M7 PT-IP Assessment and Plan Start: 01/07/24 08:50 Freq: NEEDED Status: Active Protocol: Document 01/07/24 10:45 AW (Rec: 01/07/24 12:41 AW [id number]) PT Summary Assessment and Plan Potential Rehabilitation Potential Excellent Status of Condition at Evaluation Evolving Summary Impairments Strength,Balance,Transfers, Gait,Activity Tolerance Assessment Summary Clinton Hawkins is a 78 yo man admitted with pneumonia. Code stroke was called after pt was triaged in ED due to new onset right facial droop and slurring of speech. CT, CTA, and MRI all negative. Pt continues to have mild right facial droop but no other symptoms. Modified Otilio is 0 both pre-morbid and current. PMH is significant for hypertension. PLOF: Pt is independent in all regards. He uses no assistive devices or adaptive equipment. He is active, was camping and cycling last week in [place] with friends. CLOF: Neuro screen is unremarkable other than new onset BUE tremors which do complicate coordination testing. There are no unilateral deficits in strength, sensation, or coordination. VS are WNL and stable. Transfers and gait are grossly SBA without assistive device. Pt is moving slower than usual due to decreased strength and activity tolerance. Pt completes Five Time Sit to production line technician 29.7 seconds which is almost certainly well below his typical functional ability. Anticipate pt will be able to discharge home with assist from his daughter. Will continue to assess for possible benefit of HH or outpatient PT. Goals Bed Mobility Goal Independent Transfer Goal Independent Gait Goal Independent Gait Distance 200 Other Goals Pt completes 5 Time Sit to production line technician 20 seconds or less as a measure of improved functional strength. Days to Meet Goals 5 Frequency of Treatment Frequency Of Treatment Once a Day Treatment Plan Physical Therapy Treatment Plan Bed Mobility Training,Transfer Training,Gait Training, Therapeutic Exercise,Balance Retraining,Discharge Planning, Hot or Cold Pack,Neuromuscular Re-ed Recommendations To Nursing Amount of Assist Needed Standby Assistance Discharge Recommendations PT Discharge Recommendations Home with Assistance,Home Health Transportation Needs at Discharge Private Vehicle
--- NOTE | 2024-01-07 12:37 | ST.IPIE ---
Visit Care Team Role Provider Type Siri Casas MD Primary Care Provider Physician Specialty: Family Practice Address: [address] [place] [address], [id number] Email: [email or web address] Susannah Traore DO Emergency Provider Physician Referring Provider Specialty: Emergency Medicine Address: [address] [place] [address], [id number] Email: [email or web address] Clinton Barnhart MD Attending Provider Physician Specialty: [facility] Address: [address] [place] [address], [id number] Email: [email or web address] Frank Burks MD Admit Provider Physician Other Providers Specialty: [facility] Practice Address: [address] [place] [address], [id number] Email: [email or web address] Current Diagnoses Cerebral infarction, unspecified (01/06/24) Other specified abnormal findings of blood chemistry (01/06/24) Past Medical History (Last Reviewed 01/03/24 @ 16:16 by Susannah Traore DO) Detached retina (Medical) Detached retina, bilateral (Medical) 2004 & 2016 Hard of hearing (Medical) bilateral aids History of colon polyps (Medical) History of squamous cell carcinoma of skin (Medical) Recurrent epistaxis (Medical) ST IP Initial Evaluation 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 Burks Reason for Referral Possible CVA/TIA Setting Assessment Location Acute Care Visit Type Note Type Initial evaluation Next Note Type Next Note Type Treatment Note Patient Information Identification Type Name,Wristband History Per H&P: 78-year-old male patient with a past medical history of hypertension right knee surgery right wrist surgery retinal detachment and cholecystectomy with a family history of stroke and heart disease is evaluated in the emergency department because of increasing weakness. Patient's history is obtained from the patient and daughter who is at his bedside. Patient lives independently at home. Patient presented to the emergency department on the 16th of this month. Concerned about symptoms consistent with viral illness. Workup at that time included blood counts lactate lipase procalcitonin blood cultures and urinalysis. Patient had a temperature of 100.8?. Patient had no elevation of white blood cell count mild hyponatremia. Nasal PCR showed no signs of infection and urinalysis showed blood but no nitrates or leukocytes. Chest x-ray showed no infiltrates. Patient was discharged home with unspecified viral illness. Patient's daughter came up to join him. Daughter states patient states over the last few days he is having increasing weakness. Slow speech and thought. Feeling uncoordinated loss of appetite. Feeling like he has to breathe a little bit more challenging. She came up to visit from [place]. And patient was definitely not himself. They had a good dinner last night was hoping he would wake up and feel better in the morning and he was not better. Was weak and slept in an really could not get out of bed she noticed use a little bit uncoordinated so brought him back into the emergency department he had similar symptoms of feeling short of breath mild increased work of breathing just weak in general. On evaluation in the emergency department after admission patient then began to have right-sided facial weakness with slurring of speech. Concerning for cerebrovascular injury. That point CT of the head and angiogram was done and stroke neurological consultation was obtained. Recommended aspirin and statin further admission to the hospital. Current patient is alert and awake good historian. He has some obvious right-sided facial droop. He knows where he is. He is complaining of weakness mild decreased breathing. And fevers. Laboratory testing was reviewed. Patient has a low- sodium normal kidney function platelet count is mildly low. INR and protime is normal. Patient has elevated liver enzymes of 95 and 57 a troponin which is 0.1-[address] angiogram reviewed which showed no intracranial findings. Incidentally note of a pleural effusion on his CT scan of his neck respiratory viral testing is negative. PMHx significant for: Detached retina, bilateral Detached retina History of squamous cell carcinoma of skin History of colon polyps Recurrent epistaxis Hard of hearing Pt referred for ST evaluation d/t slurred speech and possible CVA. Subjective Observations Pt sitting upright in bed with breakfast tray on tray table in front of him. Pt compliant with evaluation and good historian. ST positioned Pt upright with use of bed controls. Pt daughter arrived at the end of evaluation. Both Pt and Pt daughter state Pt with mildly slurred speech compared to baseline. Pt reports more pronouned when mouth is dry. Daughter states it sounds like he has a mild lisp, on words such has sixth . Nursing reports improved slurred speech hand right facial droop with no observed swallowing difficulties. Pt denies any swallow difficulties. Pt Ox4. Reported by Patient/Caregiver Pain/Discomfort No Current Diet Regular (IDDSI 7) Baseline Feeding Method Independent in self-feeding The IDDSI Framework Protocol: IDDSI.1 Objective Assessment Mental Status Alert,Responsive,Cooperative Oral Integrity WFL Dentition Within normal limits Lip Function Mild impairment Observation of Lips at Rest Right sided weakness/Drooping Pucker Reduced strength Lip Retraction Within normal limits Alternating Pucker/Lip Retraction Within normal limits Tongue Function Mild impairment Tongue Protrusion Reduced strength Tongue Lateralization Within normal limits Observation of Jaw at Rest Within normal limits Jaw Opening Within normal limits Jaw Closing Within normal limits Comment OME revealed slight right sided facial droop at rest, slightly reduced lingual protrusion and strength and reduced labial protrusion and strength Food and Liquid Trials Position During Assessment Upright (90 degrees) Liquids Trialed Thin (IDDSI 0) Solid Trials Regular (IDDSI 7) Administration Type Straw,Self-feeding Oral Impairment Within functional limits Oral Phase Comments Pt consumed about 40-50% of breakfast prior to ST entering room, which consisted of shredded hashbrowns, sausage link and eggs. During eval Pt consumed yari crackers and 4 oz of thin water via straw. For reg solids Pt demonstrated adequate bite size and rate, prolonged mastication however adequate bolus formation and control, timely ap transport time. For thin liquids via straw, Pt demonstrated adequate suction, good oral acceptance and containment, timely ap transport. Pharyngeal Impairment Within functional limits Pharyngeal Phase Comments Pt exhibited no overt s/s of aspiration or penetration during evaluation. Pt with clear vocal quality post swallows. He reports no occurrences of globus sensation or difficulties with swallowing. Fatigue/Endurance Endurance WNL The IDDSI Framework Protocol: IDDSI.1 Findings Swallowing Function Within functional limits Severity of Swallow Impairment Within functional limits Prognosis Good Based on Cognitive status,Family support Impact on Safety and Functioning No limitations Recommendations Instrumental Assessment No Swallowing Treatment Yes Frequency Daily while inpatient Recommended Solids Regular (IDDSI 7) Recommended Liquids Thin (IDDSI 0) Other Recommendations Pt presents with functional oral and pharyngeal phase of the swallow. However, presents with mild dysarthria characterized by slurred speech and lingual and labial weakness with slight right sided facial weakness. ST is warranted in order to educate and teach safe swallowing strategies as well as oral motor exercises to improve speech and strength oromusculature. Safety Precautions/Swallowing Remain upright (90 degrees) Recommendations during all oral intake,Small bites and sips when eating, Slow rate; swallow between bites,Alternate liquids and solids Medication Recommendations As Tolerated Education Patient/Caregiver Education Described results of evaluation,Patient expressed understanding of evaluation, Patient expressed agreement with goals & treatment plans, Patient requires further education/training Goals Short-term Goals STG 1: Patient will utilize safe swallowing strategies 90% of the time with minimal verbal cues in order to consume safest and most efficient least restrictive diet. STG 2: Pt will complete oral motor exercises of increasing complexity and duration for improved oral musculature and swallow function 90% accuracy given minimal cues. Long-term Goals LTG 1: Patient will tolerate safest and most efficient diet with no clinical s/s of aspiration or dysphagia 100% of the time in order to consume least restrictive diet . LTG2: Patient will improve intelligibility of speech for functional communication.
--- NOTE | 2024-01-07 12:38 | ST.IPIE ---
Visit Care Team Role Provider Type Siri Casas MD Primary Care Provider Physician Specialty: Family Practice Address: [address] [place] [address], [id number] Email: [email or web address] Susannah Traore DO Emergency Provider Physician Referring Provider Specialty: Emergency Medicine Address: [address] [place] [address], [id number] Email: [email or web address] Clinton Barnhart MD Attending Provider Physician Specialty: [facility] Practice Address: [address] [place] [address], [id number] Email: [email or web address] Frank Burks MD Admit Provider Physician Other Providers Specialty: [facility] Practice Address: [address] [place] [address], [address] Email: [email or web address] Current Diagnoses Cerebral infarction, unspecified (01/06/24) Other specified abnormal findings of blood chemistry (01/06/24) Past Medical History (Last Reviewed 01/03/24 @ 16:16 by Susannah Traore DO) Detached retina (Medical) Detached retina, bilateral (Medical) 2004 & 2016 Hard of hearing (Medical) bilateral aids History of colon polyps (Medical) History of squamous cell carcinoma of skin (Medical) Recurrent epistaxis (Medical) ST IP Initial Evaluation Report VICE PRESIDENT UNDERWRITING Clinical Swallow Evaluation Start: 01/07/24 09:04 Freq: Status: Active Protocol: Document 01/07/24 09:05 NIKI (Rec: 01/07/24 09:13 NIKI [id number]) Clinical Swallow Evaluation Session Time Visit Start Time 08:30 Visit Stop Time 09:00 Total Visit Minutes 30 Visit Information Visit Number [address] Burks Reason for Referral Possible CVA/TIA Setting Assessment Location Acute Care Visit Type Note Type Initial evaluation Next Note Type Next Note Type Treatment Note Patient Information Identification Type Name,Wristband History Per H&P: 78-year-old male patient with a past medical history of hypertension right knee surgery right wrist surgery retinal detachment and cholecystectomy with a family history of stroke and heart disease is evaluated in the emergency department because of increasing weakness. Patient's history is obtained from the patient and daughter who is at his bedside. Patient lives independently at home. Patient presented to the emergency department on the 16th of this month. Concerned about symptoms consistent with viral illness. Workup at that time included blood counts lactate lipase procalcitonin blood cultures and urinalysis. Patient had a temperature of 100.8?. Patient had no elevation of white blood cell count mild hyponatremia. Nasal PCR showed no signs of infection and urinalysis showed blood but no nitrates or leukocytes. Chest x-ray showed no infiltrates. Patient was discharged home with unspecified viral illness. Patient's daughter came up to join him. Daughter states patient states over the last few days he is having increasing weakness. Slow speech and thought. Feeling uncoordinated loss of appetite. Feeling like he has to breathe a little bit more challenging. She came up to visit from [place]. And patient was definitely not himself. They had a good dinner last night was hoping he would wake up and feel better in the morning and he was not better. Was weak and slept in an really could not get out of bed she noticed use a little bit uncoordinated so brought him back into the emergency department he had similar symptoms of feeling short of breath mild increased work of breathing just weak in general. On evaluation in the emergency department after admission patient then began to have right-sided facial weakness with slurring of speech. Concerning for cerebrovascular injury. That point CT of the head and angiogram was done and stroke neurological consultation was obtained. Recommended aspirin and statin further admission to the hospital. Current patient is alert and awake good historian. He has some obvious right-sided facial droop. He knows where he is. He is complaining of weakness mild decreased breathing. And fevers. Laboratory testing was reviewed. Patient has a low- sodium normal kidney function platelet count is mildly low. INR and protime is normal. Patient has elevated liver enzymes of 95 and 57 a troponin which is 0.1-[address] angiogram reviewed which showed no intracranial findings. Incidentally note of a pleural effusion on his CT scan of his neck respiratory viral testing is negative. PMHx significant for: Detached retina, bilateral Detached retina History of squamous cell carcinoma of skin History of colon polyps Recurrent epistaxis Hard of hearing Pt referred for ST evaluation d/t slurred speech and possible CVA. Subjective Observations Pt sitting upright in bed with breakfast tray on tray table in front of him. Pt compliant with evaluation and good historian. ST positioned Pt upright with use of bed controls. Pt daughter arrived at the end of evaluation. Both Pt and Pt daughter state Pt with mildly slurred speech compared to baseline. Pt reports more pronouned when mouth is dry. Daughter states it sounds like he has a mild lisp, on words such has sixth . Nursing reports improved slurred speech hand right facial droop with no observed swallowing difficulties. Pt denies any swallow difficulties. Pt Ox4. Reported by Patient/Caregiver Pain/Discomfort No Current Diet Regular (IDDSI 7) Baseline Feeding Method Independent in self-feeding The IDDSI Framework Protocol: IDDSI.1 Objective Assessment Mental Status Alert,Responsive,Cooperative Oral Integrity WFL Dentition Within normal limits Lip Function Mild impairment Observation of Lips at Rest Right sided weakness/Drooping Pucker Reduced strength Lip Retraction Within normal limits Alternating Pucker/Lip Retraction Within normal limits Tongue Function Mild impairment Tongue Protrusion Reduced strength Tongue Lateralization Within normal limits Observation of Jaw at Rest Within normal limits Jaw Opening Within normal limits Jaw Closing Within normal limits Comment OME revealed slight right sided facial droop at rest, slightly reduced lingual protrusion and strength and reduced labial protrusion and strength Food and Liquid Trials Position During Assessment Upright (90 degrees) Liquids Trialed Thin (IDDSI 0) Solid Trials Regular (IDDSI 7) Administration Type Straw,Self-feeding Oral Impairment Within functional limits Oral Phase Comments Pt consumed about 40-50% of breakfast prior to ST entering room, which consisted of shredded hashbrowns, sausage link and eggs. During eval Pt consumed yari crackers and 4 oz of thin water via straw. For reg solids Pt demonstrated adequate bite size and rate, prolonged mastication however adequate bolus formation and control, timely ap transport time. For thin liquids via straw, Pt demonstrated adequate suction, good oral acceptance and containment, timely ap transport. Pharyngeal Impairment Within functional limits Pharyngeal Phase Comments Pt exhibited no overt s/s of aspiration or penetration during evaluation. Pt with clear vocal quality post swallows. He reports no occurrences of globus sensation or difficulties with swallowing. Fatigue/Endurance Endurance WNL The IDDSI Framework Protocol: IDDSI.1 Findings Swallowing Function Within functional limits Severity of Swallow Impairment Within functional limits Prognosis Good Based on Cognitive status,Family support Impact on Safety and Functioning No limitations Recommendations Instrumental Assessment No Swallowing Treatment Yes Frequency Daily while inpatient Recommended Solids Regular (IDDSI 7) Recommended Liquids Thin (IDDSI 0) Other Recommendations Pt presents with functional oral and pharyngeal phase of the swallow. However, presents with mild dysarthria characterized by slurred speech and lingual and labial weakness with slight right sided facial weakness. ST is warranted in order to educate and teach safe swallowing strategies as well as oral motor exercises to improve speech and strength oromusculature. Safety Precautions/Swallowing Remain upright (90 degrees) Recommendations during all oral intake,Small bites and sips when eating, Slow rate; swallow between bites,Alternate liquids and solids Medication Recommendations As Tolerated Education Patient/Caregiver Education Described results of evaluation,Patient expressed understanding of evaluation, Patient expressed agreement with goals & treatment plans, Patient requires further education/training Goals Short-term Goals STG 1: Patient will utilize safe swallowing strategies 90% of the time with minimal verbal cues in order to consume safest and most efficient least restrictive diet. STG 2: Pt will complete oral motor exercises of increasing complexity and duration for improved oral musculature and swallow function 90% accuracy given minimal cues. Long-term Goals LTG 1: Patient will tolerate safest and most efficient diet with no clinical s/s of aspiration or dysphagia 100% of the time in order to consume least restrictive diet . LTG2: Patient will improve intelligibility of speech for functional communication.
[2024-01-07] MEDS: SODIUM CHLORIDE 1,000 MG TABLET 1000 MG PO (12:41)
--- NOTE | 2024-01-07 15:42 | CM.DANOTE ---
DCP Assessment Note Pt is a 78yo M here with acute hyponatremia presented to the ED with right facial weakness and difficulty of speech. Found to have pneumonia. Recent ED visit without admission 01/03/24. Here under INPT status followed by the provider group. PCP Augusto Payer Medicare and [employer]. DRILL BIT SHARPENER reviewed EMR. Per Dr. Barnhart, open to SNF placement for pt if indicated. no clear dc timeline, definitely not today. Echo/MRI pending. Per OT/PT, rec home with assistance vs HH. DRILL BIT SHARPENER met wit pt and dtr in room. introduced self and role. Pt lives alone in [place] and dtr lives farther away but works remote and plans to stay with pt at discharge. Pt is indep/no DME/drives at [facility]. no Hx of SNF or HH. DRILL BIT SHARPENER reviewed SNF/HH options with pt and dtr. Prefer to return home without SNF/HH but are open to HH if needed. No preference for agency at this time. Report could get equip/walker from [facility] if needed. PLan: anticipate home with dtr when medically stable. r/o HH closer to dc. Deny other CM needs at this time. CM team will continue to follow as needed. KAMRON Lam Discharge Planning/Care Management CM Discharge Assessment Start: 01/07/24 15:40 Freq: Status: Active Protocol: Document 01/07/24 15:41 SL (Rec: 01/07/24 15:42 [id number]) Discharge Planning Assessment Assigned Unemployment Benefits Claims Taker KAMRON Castillo DPOA/Assigned Designee Name clare Laird Contact Information [phone] Advance Directives? No History Provided By Patient Prior Living Arrangements House Household Members none Type of transporation used prior to Drives own vehicle admit Independent with ADL's Yes Is patient alert and oriented? Yes Comment Plan to go to [facility] for walker Barriers to Discharge No Discharge Plan Home Transportation Arrangement dtr in POV Whiteboard Updated in Patient Room with Yes name and ext. # of Unemployment Benefits Claims Taker Review Status In Process Please Provide Date Initial DC 01/07/24 Assessment Was Performed Next Review Type Continued Stay Review D
[2024-01-07] MEDS: DEXTROSE 5%-0.9% NS 1,000 ML 100 ML IV (18:20)
[2024-01-07] MEDS: ACETAMINOPHEN 325 MG TABLET 650 MG PO (20:28)
[2024-01-07] MEDS: SENNOSIDES 8.6 MG TABLET 17.2 MG PO (20:28)
[2024-01-07] MEDS: LOSARTAN 50 MG TABLET PO (20:29)
[2024-01-07] MEDS: ATORVASTATIN 20 MG TABLET 40 MG PO (20:29)
[2024-01-07] MEDS: METOPROLOL ER 25 MG TABLET PO (20:29)
[2024-01-08] VITALS (10 sets, daily range): BP systolic 105–130; BP diastolic 48–95; PULSE 69–115; RESP 16–28; TEMP 35.9–37; O2SAT 94–99
[2024-01-08] MEDS: PIPERACILLIN/TAZO 3.375 GM in SODIUM CHLORIDE 0.9% 100 ML IV (00:35)
--- NOTE | 2024-01-08 08:32 | DI.RAD.S_ITS ---
PROCEDURE: XR CHEST 2V INDICATIONS: pneumonia TECHNIQUE: 2 views of the chest were acquired. COMPARISON: [facility], CR, XR CHEST 1V, 01/06/2024, 14:39. [facility], CR, XR CHEST 1V, 01/03/2024, 14:19. FINDINGS: Surgical changes and devices: None. Lungs and pleura: Left lower lobe consolidation with trace parapneumonic effusion. Mediastinum: Mediastinal contours are normal. Heart size is normal. Bones and chest wall: No suspicious bony abnormalities. Soft tissues appear unremarkable. IMPRESSION: Left lower lobe pneumonia with small parapneumonic effusion. Dictated by: Guerrero Reyna M.D. on 01/08/2024 at 9:15 Approved by: Guerrero Reyna M.D. on 01/08/2024 at 9:15
--- NOTE | 2024-01-08 08:34 | P.PN_ITS ---
Subjective Subjective Date Patient Seen: 01/08/24 Time Patient Seen: 08:34 Interval history: Patient seen in follow-up of pneumonia right facial weakness and hyponatremia. Patient overall still feeling quite weak. Did get up and move a little bit with physical therapy but feels only about 40% of where he started. No chest pain. Does have shortness of breath. With no other change. Not feeling much like he is going home Exam Vital Signs (past 8 hours): - 01/08/24 02:07 01/08/24 04:47 Temperature 98.6 F Pulse Rate 81 85 Respiratory Rate 16 Blood Pressure 112/73 124/73 Pulse Oximetry 96 Oxygen Flow Rate 0 Oxygen Delivery Method Room Air Oxygen Flow Rate 0 Narrative Exam Narrative: Alert fatigued elderly male in no acute distress Mucous membranes moist. Neck supple without adenopathy. Lungs left base with to mid lung montanez with E to a change. Dense decreased breath sounds. Heart is regular rate and rhythm abdomen benign extremities normal. Neurologic exam cranial nerves 2-12 are intact. Appears to be nonfocal. Objective Labs 01/07/24 02:50 01/07/24 02:50 [facility] Medical History Detached retina, bilateral Detached retina History of squamous cell carcinoma of skin History of colon polyps Recurrent epistaxis Hard of hearing Surgical History Status post cataract extraction of both eyes with insertion of intraocular lens History of cholecystectomy (~2010) H/O wrist surgery H/O right knee surgery (~1990) Social History household members: none Smoking Status: Never smoker alcohol intake: current Assessment & Plan Assessment & Plan narrative: Pneumonia. No bacterial source. But significant findings today on exam. Patient does not look like he feels well I do not think he is ready go home and I think at this point it would be good to watch him 24 hours on oral antibiotics. Will switch to Cipro discontinue IV antibiotics and re-evaluate in morning. I would like to repeat x-ray to make sure there has not been a significant change. Right facial weakness and difficulty of speech on presentation. Seems to be resolved at this point although daughter feels like there is a slight right- sided difference. Hard to tell on my exam. Patient had negative echo. Normal MRI. Question whether this is TIA or is secondary to some other issue more involved with his infection. The question is do we stay on Plavix or not. At this point I will not make change. Could just increase to full-dose aspirin and follow. Or Plavix for 6 weeks. And then discontinue with full-dose aspirin. We discussed this. They understand. Will see what usual PMD decides. Hypo natremia. Trend has been continued down. We discussed this. This point will need to check today and see where he is out. May need to fluid restrict and re-evaluate. Maybe part of his fatigue. Unclear at this time but will follow-up later today. After being seen. Elevated LFTs. Etiology is unclear. CT is reviewed. No obvious findings. No other changes. At this point will repeat labs today and see where we are at. They have been slowly climbing could be secondary to infection and possible early sepsis. But at this point it is unclear. Will re-evaluate later today. EKG changes appears not to be cardiac. Will follow. Primary hypertension. Not an issue at this time. Will continue usual meds. DVT prophylaxis. On Lovenox aspirin Plavix Code status full Disposition. Certainly concerning with this current situation I do not think we have enough information to make a decision today. One more day in the hospital for sure. We discussed all this. 54 minutes spent with patient chart review sign out nursing dictation orders Quality VTE Deep Vein Thrombosis/Pulmonary Embolism Present on Admission: No
--- NOTE | 2024-01-08 08:55 | ST.OPTN ---
Visit Care Team Role Provider Type Siri Casas MD Primary Care Provider Physician Address: [address] [place] [address], [facility] [place], [address] Susannah Traore DO Emergency Provider Physician Referring Provider Address: [address] [place] [address], [address] Clinton Barnhart MD Attending Provider Physician Address: [address] [place] [address], [address] Frank Burks MD Admit Provider Physician Other Providers Address: [address] [place] [address], [address], [address] AUTOMATION QA ANALYST Treatment Note AUTOMATION QA ANALYST Treatment Note Start: 01/08/24 08:44 Freq: Status: Active Protocol: Document 01/08/24 08:44 NIKI (Rec: 01/08/24 08:55 MA [id number]) Speech Pathology Treatment Note Session Time Visit Start Time 08:25 Visit Stop Time 08:45 Total Visit Minutes 20 Visit Information Visit Number 2 Setting Treatment Setting Acute Care Visit Type Note Type Initial Evaluation General Information Patient History Per H&P: 78-year-old male patient with a past medical history of hypertension right knee surgery right wrist surgery retinal detachment and cholecystectomy with a family history of stroke and heart disease is evaluated in the emergency department because of increasing weakness. Patient's history is obtained from the patient and daughter who is at his bedside. Patient lives independently at home. Patient presented to the emergency department on the 16th of this month. Concerned about symptoms consistent with viral illness. Workup at that time included blood counts lactate lipase procalcitonin blood cultures and urinalysis. Patient had a temperature of 100.8?. Patient had no elevation of white blood cell count mild hyponatremia. Nasal PCR showed no signs of infection and urinalysis showed blood but no nitrates or leukocytes. Chest x-ray showed no infiltrates. Patient was discharged home with unspecified viral illness. Patient's daughter came up to join him. Daughter states patient states over the last few days he is having increasing weakness. Slow speech and thought. Feeling uncoordinated loss of appetite. Feeling like he has to breathe a little bit more challenging. She came up to visit from [place]. And patient was definitely not himself. They had a good dinner last night was hoping he would wake up and feel better in the morning and he was not better. Was weak and slept in an really could not get out of bed she noticed use a little bit uncoordinated so brought him back into the emergency department he had similar symptoms of feeling short of breath mild increased work of breathing just weak in general. On evaluation in the emergency department after admission patient then began to have right-sided facial weakness with slurring of speech. Concerning for cerebrovascular injury. That point CT of the head and angiogram was done and stroke neurological consultation was obtained. Recommended aspirin and statin further admission to the hospital. Current patient is alert and awake good historian. He has some obvious right-sided facial droop. He knows where he is. He is complaining of weakness mild decreased breathing. And fevers. Laboratory testing was reviewed. Patient has a low- sodium normal kidney function platelet count is mildly low. INR and protime is normal. Patient has elevated liver enzymes of 95 and 57 a troponin which is 0.1-[address] angiogram reviewed which showed no intracranial findings. Incidentally note of a pleural effusion on his CT scan of his neck respiratory viral testing is negative. PMHx significant for: Detached retina, bilateral Detached retina History of squamous cell carcinoma of skin History of colon polyps Recurrent epistaxis Hard of hearing Pt referred for ST evaluation d/t slurred speech and possible CVA. Subjective Observations/Patient Presentation Pt sitting upright in bed with breakfast meal. Pt daughter present at bedside. Nursing reports plan for patient to stay another night d/t weakness and SOB. Pt reports improved speech this morning with reduced slurring. Pt daughter also reports reduced slurring. Pt reports no swallowing difficulties, however states his tastebuds aren't working great in regards to what foods taste good and what does not. He reports fruit cups have been tasting good. Objective Treatment Activities PO trials, safe swallowing strategies, oral motor exercises Assessment Assessment of Improvement ST assessed swallow function with PO trial of reg solids and thin liquids in order to determine safest diet. Pt consumed a couple bites of an egg, lau and cheese sandwich and diced peaches with 4 oz of thin water via straw. For solids Pt demonstrated adequate bite size and rate, slightly prolonged mastication , which may be d/t fatigue, however adequate bolus formation and control, extended ap transport, no overt s/s of aspiration or reports of food feeling stuck. For thin liquids via straw, Pt demonstrated adequate suction, consecutive sips, suspected delay in swallow, 1x throat clear, however clear vocal quality, no coughing observed. ST educated Pt on safe swallowing strategies, such as slow rate, small sips/ bites, alternating liquids/ solids and remaining upright at least 30 minutes after meals. Pt verbalized understanding. ST provided handout on oral motor exercises for Pt to complete in order to improve oromusculature strength. Pt demonstrated and verbalized understanding. Reviewed with Patient Home Exercise Program
--- NOTE | 2024-01-08 08:55 | ST.OPTN ---
Visit Care Team Role Provider Type Siri Casas MD Primary Care Provider Physician Address: [address] [place] [address], [facility] [place], [address] uSsannah Traore DO Emergency Provider Physician Referring Provider Address: [address] [place] [address], [address] Clinton Barnhart MD Attending Provider Physician Address: [address] [place] [address], [id number] Frank Burks MD Admit Provider Physician Other Providers Address: [address] [place] [address], [address], [address] REGISTRATION CLERK Treatment Note REGISTRATION CLERK Treatment Note Start: 01/08/24 08:44 Freq: Status: Active Protocol: Document 01/08/24 08:44 NIKI (Rec: 01/08/24 08:55 MA [id number]) Speech Pathology Treatment Note Session Time Visit Start Time 08:25 Visit Stop Time 08:45 Total Visit Minutes 20 Visit Information Visit Number 2 Setting Treatment Setting Acute Care Visit Type Note Type Initial Evaluation General Information Patient History Per H&P: 78-year-old male patient with a past medical history of hypertension right knee surgery right wrist surgery retinal detachment and cholecystectomy with a family history of stroke and heart disease is evaluated in the emergency department because of increasing weakness. Patient's history is obtained from the patient and daughter who is at his bedside. Patient lives independently at home. Patient presented to the emergency department on the 16th of this month. Concerned about symptoms consistent with viral illness. Workup at that time included blood counts lactate lipase procalcitonin blood cultures and urinalysis. Patient had a temperature of 100.8?. Patient had no elevation of white blood cell count mild hyponatremia. Nasal PCR showed no signs of infection and urinalysis showed blood but no nitrates or leukocytes. Chest x-ray showed no infiltrates. Patient was discharged home with unspecified viral illness. Patient's daughter came up to join him. Daughter states patient states over the last few days he is having increasing weakness. Slow speech and thought. Feeling uncoordinated loss of appetite. Feeling like he has to breathe a little bit more challenging. She came up to visit from [place]. And patient was definitely not himself. They had a good dinner last night was hoping he would wake up and feel better in the morning and he was not better. Was weak and slept in an really could not get out of bed she noticed use a little bit uncoordinated so brought him back into the emergency department he had similar symptoms of feeling short of breath mild increased work of breathing just weak in general. On evaluation in the emergency department after admission patient then began to have right-sided facial weakness with slurring of speech. Concerning for cerebrovascular injury. That point CT of the head and angiogram was done and stroke neurological consultation was obtained. Recommended aspirin and statin further admission to the hospital. Current patient is alert and awake good historian. He has some obvious right-sided facial droop. He knows where he is. He is complaining of weakness mild decreased breathing. And fevers. Laboratory testing was reviewed. Patient has a low- sodium normal kidney function platelet count is mildly low. INR and protime is normal. Patient has elevated liver enzymes of 95 and 57 a troponin which is 0.1-[address] angiogram reviewed which showed no intracranial findings. Incidentally note of a pleural effusion on his CT scan of his neck respiratory viral testing is negative. PMHx significant for: Detached retina, bilateral Detached retina History of squamous cell carcinoma of skin History of colon polyps Recurrent epistaxis Hard of hearing Pt referred for ST evaluation d/t slurred speech and possible CVA. Subjective Observations/Patient Presentation Pt sitting upright in bed with breakfast meal. Pt daughter present at bedside. Nursing reports plan for patient to stay another night d/t weakness and SOB. Pt reports improved speech this morning with reduced slurring. Pt daughter also reports reduced slurring. Pt reports no swallowing difficulties, however states his tastebuds aren't working great in regards to what foods taste good and what does not. He reports fruit cups have been tasting good. Objective Treatment Activities PO trials, safe swallowing strategies, oral motor exercises Assessment Assessment of Improvement ST assessed swallow function with PO trial of reg solids and thin liquids in order to determine safest diet. Pt consumed a couple bites of an egg, lau and cheese sandwich and diced peaches with 4 oz of thin water via straw. For solids Pt demonstrated adequate bite size and rate, slightly prolonged mastication , which may be d/t fatigue, however adequate bolus formation and control, extended ap transport, no overt s/s of aspiration or reports of food feeling stuck. For thin liquids via straw, Pt demonstrated adequate suction, consecutive sips, suspected delay in swallow, 1x throat clear, however clear vocal quality, no coughing observed. ST educated Pt on safe swallowing strategies, such as slow rate, small sips/ bites, alternating liquids/ solids and remaining upright at least 30 minutes after meals. Pt verbalized understanding. ST provided handout on oral motor exercises for Pt to complete in order to improve oromusculature strength. Pt demonstrated and verbalized understanding. Reviewed with Patient Home Exercise Program
[2024-01-08 09:15] LABS: Add Manual Diff / Slide Review NO; Basophils Absolute Auto 0 /uL (0-100); Basophils Percent Auto 0.1 % (0-2); Eosinophils Absolute Auto 0 /uL (0-450); Eosinophils Percent Auto 0.1 % (2-4); Hematocrit 35.7 % (41-53); Hemoglobin 12.4 g/dL (13.5-17.5); Lymphocytes Absolute Auto 200 /uL (1100-4500); Mean Corpuscular HGB Conc 34.7 % (30-36); Mean Corpuscular Hemoglobin 30.2 PG (26-34); Mean Corpuscular Volume 87.1 fL (80-100); Monocytes Absolute Auto 200 /uL (0-900); Monocytes Percent Auto 2.1 % (3-14); Neutrophils Absolute Auto 7500 /uL (1500-7000); Neutrophils Percent Auto 94.7 % (50-75); Platelet Count 123 X10^3/uL (150-400); Red Cell Distribution Width 13.9 % (11.6-14.8); White Blood Cell Count 7.9 X10^3/uL (4.5-11.0)
[2024-01-08] MEDS: ASPIRIN EC 325 MG TABLET PO (09:25)
[2024-01-08] MEDS: CIPROFLOXACIN 250 MG TABLET 750 MG PO ×2 (09:26→20:28)
[2024-01-08] MEDS: SODIUM CHLORIDE 1,000 MG TABLET 1000 MG PO (09:26)
[2024-01-08] MEDS: CLOPIDOGREL 75 MG TABLET PO (09:26)
[2024-01-08] MEDS: ENOXAPARIN 40 MG/0.4 ML SYRINGE SUBCUT (09:26)
[2024-01-08 09:36] LABS: Alanine Aminotransferase 70 IU/L (<50); Albumin 2.6 g/dL (3.5-5.0); Alkaline Phosphatase 72 U/L (38-126); Aspartate Aminotransferase 121 IU/L (17-59); BUN Creatinine Ratio 15.1 (6-22); Bilirubin Total 0.5 mg/dL (0.2-1.3); Blood Urea Nitrogen 13 mg/dL (9-20); Calcium 7.1 mg/dL (8.4-10.2); Carbon Dioxide 21 mmol/L (22-32); Chloride 101 mmol/L (98-107); Estimated Glomerular Filt Rate > 60 mL/min (>60); Globulin 2.6 g/dL (1.7-4.1); Glucose 129 mg/dL (80-110); HEMOLYSIS < 15 (0-50); Potassium 3.3 mmol/L (3.4-5.1); Sodium 126 mmol/L (137-145); Total Protein 5.2 g/dL (6.3-8.2)
--- NOTE | 2024-01-08 11:18 | CM.DPNOTE ---
DCP note [facility] reviewed EMR. Per provider PN, switched pt to PO abx today. Want to continue to monitor pneumonia another 24 hours at least. Per provider PN, pt had negative echo and normal MRI. Sodium continues to remain low. Per RN report, while pt is ambulating decently enough, he is significantly below baseline. At Baseline, pt's a very active biker (recently would do 20 mile rides) and his current level of ability/fatigue is concerning daughter. Per speech therapy note, pt had reduced slurring of speech today, recommendations are for home exercises. Plan: anticipate home with dtr when medically stable. r/o HH closer to dc. Deny other CM needs at this time. CM team will continue to follow as needed. KAMRON Lam
[2024-01-08] MEDS: POTASSIUM CHLORIDE 20 MEQ TAB 40 MEQ PO ×2 (12:43→20:27)
--- NOTE | 2024-01-08 14:46 | OT.IPNOTE ---
Per nursing pt still having nose bleed, to see pt later if able or tomorrow.
--- NOTE | 2024-01-08 14:57 | PT.IPTN ---
Current Diagnoses Cerebral infarction, unspecified (01/06/24) Other specified abnormal findings of blood chemistry (01/06/24) Physical Therapy Treatment Note M2 PT-IP Current Condition Start: 01/07/24 08:50 Freq: NEEDED Status: Active Protocol: Document 01/07/24 10:45 AW (Rec: 01/07/24 12:41 AW [id number]) Physical Therapy Current Condition Current Condition Evaluation Date 01/07/24 Treatment Diagnosis CVA rule out, PNA, impaired mobility Onset Date 01/03/24 M3 PT-IP Subjective Start: 01/07/24 08:50 Freq: NEEDED Status: Active Protocol: Document 01/08/24 15:20 TS (Rec: 01/08/24 15:36 TS [id number]) Subjective Physical Therapy Visit Type Type Treatment Note Visit Start Time 14:57 Visit Stop Time 15:20 Number of ELECTION ASSISTANT Visits 1 Physical Therapy Visit Comments Patient Comments Pt found resting in chair, had nosebleed earlier and has resolved. Pt is agreeable to PT. M4 PT-IP Mobility and Gait Start: 01/07/24 08:50 Freq: NEEDED Status: Active Protocol: Document 01/08/24 15:20 TS (Rec: 01/08/24 15:36 TS [id number]) PT-Transfer Assessment Sit to and From Stand Sit to and from Stand Standby Assistance Equipment Transfer Assistive Device None Comments Mobility Comments STS form chair SBA with no AD. Pt ambulated ~100' with FWW, transitioned to AD ~150' CGA. Pt is unsteady with gait with no AD, had no buckling or LOB. He performed gait ~100' with head turns, pt became more unsteady and slower with his gait. In room pt performed staggered stance and SLS with counter support and NBOS with eyes closed. Pt had some difficulty maintaining balance and required counter support most of the time. Pt was left in standing shaving with daughter in room, nursing was notified to stand by. Gait Assessment Gait Gait Assistance Required: Standby Assistance Distance (Feet) 350 Assistive Devices Assistive Device None,Gait Belt,Front Wheeled Walker Gait Deviations General Gait Pattern Decreased Stride Length, Decreased Feet Clearance,Wide Based Gait Factors Limiting Gait Function Factors Limiting Gait Function Decreased Activity Tolerance, Decreased Strength PT-Balance Assessment Sitting Balance and Reactions Static Sitting Balance Ability Normal Dynamic Sitting Balance Ability Normal Standing Balance and Reactions Static Standing Balance Ability Good Dynamic Standing Balance Ability Good Device Used no AD/FWW M5 PT-IP Objective Assessments Start: 01/07/24 08:50 Freq: NEEDED Status: Active Protocol: Document 01/07/24 10:45 AW (Rec: 01/07/24 12:41 AW [id number]) Orientation Orientation/Cognition Level of Alertness Alert Orientation Name,Day of Week,Place, Situation Language Function Ability No Deficits Noted Safety Awareness Understands Safety Issues Memory Description No Deficits Noted Comments No dysarthria or word finding difficulty noted. Gross Range of Motion Upper Extremity ROM Assessment Within Functional Limits Lower Extremity ROM Assessment Within Functional Limits Strength Upper Extremity Strength Assessment Within Functional Limits Lower Extremity Strength Assessment Within Functional Limits Hip flexion and abduction 4/5 Knee ext 5/5 flex 4+/5 Ankle DF 5/5 Comments Strength Comments No unilateral deficit Coordination Assessment Assessment Finger to Nose Test Minimal Impairment Pronation/Supination Test Minimal Impairment Coordination Comments UE coordination affected by bilateral tremors. Pt states tremors have been present ~1 week since upper respiratory symptoms started. Sensation Assessment Sensation Gross Sensation WNL Light Touch Intact Muscle Tone Comments Muscle Tone Comments New UE tremors, bilateral Other Assessments Other Other Assessments Vision, ocular motor, and vestibular screens WNL. M7 PT-IP Assessment and Plan Start: 01/07/24 08:50 Freq: NEEDED Status: Active Protocol: Document 01/08/24 15:20 TS (Rec: 01/08/24 15:36 TS [id number]) PT Summary Assessment and Plan Potential Rehabilitation Potential Excellent Summary Impairments Strength,Balance,Transfers, Gait,Activity Tolerance Progress Towards Goals Progressing Toward Goals Assessment Summary Clinton is making progress with his mobility. He progressed his gait to ~350' CGA/SBA. Pt ambulated ~100' with FWW SBA and 250 CGA with no AD. He did well with head turns and walking, stumbled over his feet x1 when looking up. PT is recommending pt to return home with assist and HHPT. Goals Bed Mobility Goal Independent Transfer Goal Independent Gait Goal Independent Gait Distance 200 Other Goals Pt completes 5 Time Sit to campus chaplain 20 seconds or less as a measure of improved functional strength. Days to Meet Goals 5 Frequency of Treatment Frequency Of Treatment Once a Day Treatment Plan Physical Therapy Treatment Plan Bed Mobility Training,Transfer Training,Gait Training, Therapeutic Exercise,Balance Retraining,Discharge Planning, Hot or Cold Pack,Neuromuscular Re-ed Recommendations To Nursing Amount of Assist Needed Standby Assistance Discharge Recommendations PT Discharge Recommendations Home with Assistance,Home Health Transportation Needs at Discharge Private Vehicle
--- NOTE | 2024-01-08 16:15 | OT.IPNOTE ---
Attempted to see pt again and pt having another nose bleed, nursing notified.
[2024-01-08] MEDS: METOPROLOL ER 25 MG TABLET PO (20:28)
[2024-01-08] MEDS: SENNOSIDES 8.6 MG TABLET 17.2 MG PO (20:28)
[2024-01-08] MEDS: LOSARTAN 50 MG TABLET PO (20:29)
[2024-01-08] MEDS: ATORVASTATIN 20 MG TABLET 40 MG PO (20:29)
[2024-01-09] VITALS: BP 107/54; PULSE 87; RESP 18; TEMP 37; O2SAT 95
[2024-01-09 04:00] VITALS: BP 140/72; PULSE 83; RESP 17; TEMP 36.2; O2SAT 90
[2024-01-09 06:19] LABS: Add Manual Diff / Slide Review NO; Basophils Absolute Auto 0 /uL (0-100); Basophils Percent Auto 0.2 % (0-2); Eosinophils Absolute Auto 0 /uL (0-450); Hematocrit 32.9 % (41-53); Hemoglobin 11.5 g/dL (13.5-17.5); Lymphocytes Absolute Auto 400 /uL (1100-4500); Lymphocytes Percent Auto 4.9 % (25-40); Mean Corpuscular Hemoglobin 30.5 PG (26-34); Mean Corpuscular Volume 87.2 fL (80-100); Monocytes Absolute Auto 200 /uL (0-900); Monocytes Percent Auto 3.5 % (3-14); Neutrophils Absolute Auto 6500 /uL (1500-7000); Neutrophils Percent Auto 91.4 % (50-75); Platelet Count 145 X10^3/uL (150-400); Red Blood Cell Count 3.78 X10^6/uL (4.5-5.9); Red Cell Distribution Width 14.2 % (11.6-14.8); White Blood Cell Count 7.1 X10^3/uL (4.5-11.0)
--- NOTE | 2024-01-09 06:19 | PC.NURSE ---
Pt has had reoccurring episodes of vtach of less than 2 beats throughout the night. @ 0326 pt had a 7-beat run of vtach and @ 0453 a 6-beat run of vtach. Pt is asymptomatic w/ stable vitals, however markedly short of breath on exertion. called and notified. Magnesium blood draw ordered.
[2024-01-09 06:24] LABS: Alanine Aminotransferase 81 IU/L (<50); Albumin 2.4 g/dL (3.5-5.0); Alkaline Phosphatase 79 U/L (38-126); Aspartate Aminotransferase 136 IU/L (17-59); BUN Creatinine Ratio 15.6 (6-22); Bilirubin Total 0.6 mg/dL (0.2-1.3); Blood Urea Nitrogen 14 mg/dL (9-20); Calcium 6.8 mg/dL (8.4-10.2); Carbon Dioxide 23 mmol/L (22-32); Chloride 101 mmol/L (98-107); Estimated Glomerular Filt Rate > 60 mL/min (>60); Globulin 2.4 g/dL (1.7-4.1); Glucose 105 mg/dL (80-110); HEMOLYSIS < 15 (0-50); Potassium 3.8 mmol/L (3.4-5.1); Sodium 127 mmol/L (137-145); Total Protein 4.8 g/dL (6.3-8.2)
[2024-01-09] MEDS: CIPROFLOXACIN 250 MG TABLET 750 MG PO (06:29)
[2024-01-09 07:00] VITALS: O2SAT 98
[2024-01-09 07:06] LABS: Magnesium 2.1 mg/dL (1.6-2.3)
[2024-01-09 08:00] VITALS: BP 133/69; PULSE 82; RESP 16; TEMP 36.1; O2SAT 98
[2024-01-09] MEDS: ENOXAPARIN 40 MG/0.4 ML SYRINGE SUBCUT (08:43)
[2024-01-09] MEDS: CLOPIDOGREL 75 MG TABLET PO (08:43)
[2024-01-09] MEDS: SODIUM CHLORIDE 1,000 MG TABLET 1000 MG PO (08:43)
[2024-01-09] MEDS: ASPIRIN EC 325 MG TABLET PO (08:43)
--- NOTE | 2024-01-09 09:15 | OT.IP.TRT ---
Current Diagnoses Cerebral infarction, unspecified (01/06/24) Other specified abnormal findings of blood chemistry (01/06/24) Occupational Therapy Treatment Note M2 OT-IP Current Condition Start: 01/07/24 10:35 Freq: Status: Active Protocol: Document 01/07/24 10:35 CGR (Rec: 01/07/24 10:55 CGR [id number]) Occupational Therapy Current Condition Current Condition Evaluation Date 01/07/24 Treatment Diagnosis PNA, R facial droop Diagnosis Onset Date 01/06/24 M3 OT- IP Subjective and Pain Start: 01/07/24 10:35 Freq: Status: Active Protocol: Document 01/09/24 10:43 [facility] (Rec: 01/09/24 10:56 [facility] [id number]) OT- Subjective Occupational Therapy Visit Type Type Treatment Note Visit Start Time 09:15 Visit Stop Time 00:44 Occupational Therapy Visit Comments Patient Comments Pt agreed to do cognitive assessment. Patient/Caregiver Goals TO go home. OT Pain Assessment Pain When Pain Assessed At Rest Pain Present Pain Present Denied Pain M4 OT- IP ADL's Start: 01/07/24 10:35 Freq: Status: Active Protocol: Document 01/07/24 10:35 CGR (Rec: 01/07/24 10:55 CGR [id number]) OT [id number] Comments OT Self-Feeding Comments not meal time but pt states he didn't have trouble at breakfast. OT ADL-Grooming Comments OT Grooming Comments not performed OT ADL-Oral Care Comments Oral Care Comments not performed OT ADL-Dressing General Eval Lower Body Dressing Ability Independent Areas Needing Assistance Socks Comments OT Dressing Comments seated in chair OT ADL-Toileting Comments OT Toileting Comments pt declined need OT ADL-Bathing Comments OT Bathing Comments not performed M5 OT- IP IADL's Start: 01/07/24 10:35 Freq: Status: Active Protocol: Document 01/07/24 10:35 CGR (Rec: 01/07/24 10:55 CGR [id number]) OT-Instrumental Activities of Daily Living Deficits IADL Deficits Identified No Deficits Home Safety Awareness Awareness of Need for Assistance at Home Good Awareness Ability to Problem Solve Emergency Able to Problem Solve Situations Medication Management Medication Management Comments Concerns regarding pt's current abilities. Money Management Money Management Comments Concerns regarding pt's current abilities. Meal Preparation Meal Preparation Comments Concerns regarding pt's current abilities. Perioperative Assistant Perioperative Assistant Caregiver Provides Assist Driving Driving Comments Concerns regarding pt's current abilities. M6 OT- IP Functional Cognition Start: 01/07/24 10:35 Freq: Status: Active Protocol: Document 01/09/24 10:43 [facility] (Rec: 01/09/24 10:56 [facility] [id number]) Cognitive Factors Limiting Selfcare Function Cognitive Ability Level of Alertness Alert Patient Orientation Name,Age,Birthday,Month,Date, Year,Day of Week,Place, Situation Attention Span Ability Capable of Focused Attention, Capable of Sustained Attention Ability to Follow Commands Able to Follow One Step Commands Memory Description Short Term Impaired Executive Function Ability Unable to Remember Details Cognitive Tests SLUMS Pt scored 23/30 on the SLUMS which implies mild neurocognitive impairments. Pt able to recall 4/5 objects after time passed and able to answer 1/4 questions after paragraph read. Pt also needing increased time to process questions. Pt states that the information from the paragraph was hard to absorb, in addition pt did not have his hearing aids in. Cognitive Comments Cognitive Assessment Comments Pt scored 217 seconds in [place] Making Part B which in under 20th percentile for his age and implies severe impairments for visual attention, speed of processing, task switching, mental flexibility, and executive functioning. Pt well aware that he will not be driving at this time. Pt agreed that he is not at his baseline physically or mentally at this time. OT- Vision and Hearing OT- Hearing Assessment OT- Hearing Assessment Hearing Impaired,Use of Hearing Aids M8 OT- IP Objective Assessments Start: 01/07/24 10:35 Freq: Status: Active Protocol: Document 01/07/24 10:35 CGR (Rec: 01/07/24 10:55 CGR [id number]) OT Gross Range of Motion Upper Extremity Range of Motion Assessment Right Impaired ROM Impairments R hand impairments that are his baseline from a previous sx. OT Strength Upper Extremity Strength Assessment Within Functional Limits Comments Strength Comments grossly 4+ to 5-/5 except to the R hand OT- Coordination Assessment Upper Extremity Finger to Nose Test Within Functional Limits Finger Tapping Test Right UE Impaired OT-Muscle Tone Assessment Muscle Tone WNL Yes OT Sensation Assessment Edema Edema Absent M9 OT- IP Assessment and Plan Start: 01/07/24 10:35 Freq: Status: Active Protocol: Document 01/09/24 10:43 [facility] (Rec: 01/09/24 10:56 CCC [id number]) OT Summary Assessment and Plan Potential Rehabilitation Potential Excellent Analytic Complexity at Evaluation Moderate Summary OT Impairments Balance,Functional Cognition, Functional Mobility,Dressing, Toileting,Bathing,Toilet Transfers,Shower Transfers, Activity Tolerance Progress Towards Goals Slow Progress due to Activity Tolerance,Slow Progress due to Cognition Assessment Summary Pt scored 23/30 on the SLUMS which implies mild neurocongitive deficits main trouble with STM. Pt scored 217 seconds on Climax Making Part B which implies severe deficits with task switching, speed of processing, mental flexibility, executive functioning, and visual attentions. Pt plans to go home with his daughter to assist. Suggested pt get shower chair for home use. Pt may benefit from home health as pt has poor activity tolerance at this time. Goals Self-Feeding Goal Independent Grooming Goal Independent Dressing Goal Independent Toileting Goal Independent Bathing Goal Independent Toilet Transfer Goal Independent Shower Transfer Goal Independent Days to Meet Goals 10 Frequency of Treatment Frequency Of Treatment Once a Day Treatment Plan OT Treatment Plan ADL Training,Functional Cognition Training,Functional Mobility,Patient/Family Education,Discharge Planning Discharge Recommendations OT Discharge Recommendations Home with Assistance Other Discharge Recommendations May benefit form home health. Transportation Needs at Discharge Private Vehicle
--- NOTE | 2024-01-09 10:20 | ST.IPTN ---
Visit Care Team Role Provider Type Siri Casas MD Primary Care Provider Physician Address: [address] [place] [address], [facility] [place], [address] Susannah Traore DO Emergency Provider Physician Referring Provider Address: [address] [place] [address], [address] Clinton Barnhart MD Attending Provider Physician Address: [address] [place] [address], [id number] Frank Burks MD Admit Provider Physician Other Providers Address: [address] [place] [address], [address], [address] OPERATIONS MANAGEMENT TRAINEE Treatment Note OPERATIONS MANAGEMENT TRAINEE Treatment Note Start: 01/08/24 08:44 Freq: Status: Active Protocol: Document 01/09/24 10:13 CG (Rec: 01/09/24 10:20 CG [id number]) Speech Pathology Treatment Note Session Time Visit Start Time 10:03 Visit Stop Time 10:12 Total Visit Minutes 9 Visit Information Visit Number 3 Setting Treatment Setting Acute Care Visit Type Note Type Treatment Note General Information Patient History Per H&P: 78-year-old male patient with a past medical history of hypertension right knee surgery right wrist surgery retinal detachment and cholecystectomy with a family history of stroke and heart disease is evaluated in the emergency department because of increasing weakness. Patient's history is obtained from the patient and daughter who is at his bedside. Patient lives independently at home. Patient presented to the emergency department on the 16th of this month. Concerned about symptoms consistent with viral illness. Workup at that time included blood counts lactate lipase procalcitonin blood cultures and urinalysis. Patient had a temperature of 100.8?. Patient had no elevation of white blood cell count mild hyponatremia. Nasal PCR showed no signs of infection and urinalysis showed blood but no nitrates or leukocytes. Chest x-ray showed no infiltrates. Patient was discharged home with unspecified viral illness. Patient's daughter came up to join him. Daughter states patient states over the last few days he is having increasing weakness. Slow speech and thought. Feeling uncoordinated loss of appetite. Feeling like he has to breathe a little bit more challenging. She came up to visit from [place]. And patient was definitely not himself. They had a good dinner last night was hoping he would wake up and feel better in the morning and he was not better. Was weak and slept in an really could not get out of bed she noticed use a little bit uncoordinated so brought him back into the emergency department he had similar symptoms of feeling short of breath mild increased work of breathing just weak in general. On evaluation in the emergency department after admission patient then began to have right-sided facial weakness with slurring of speech. Concerning for cerebrovascular injury. That point CT of the head and angiogram was done and stroke neurological consultation was obtained. Recommended aspirin and statin further admission to the hospital. Current patient is alert and awake good historian. He has some obvious right-sided facial droop. He knows where he is. He is complaining of weakness mild decreased breathing. And fevers. Laboratory testing was reviewed. Patient has a low- sodium normal kidney function platelet count is mildly low. INR and protime is normal. Patient has elevated liver enzymes of 95 and 57 a troponin which is 0.1-[address] angiogram reviewed which showed no intracranial findings. Incidentally note of a pleural effusion on his CT scan of his neck respiratory viral testing is negative. PMHx significant for: Detached retina, bilateral Detached retina History of squamous cell carcinoma of skin History of colon polyps Recurrent epistaxis Hard of hearing Pt referred for ST evaluation d/t slurred speech and possible CVA. Subjective Observations/Patient Presentation Pt found in hospital chair at bedside with daughter present in the room, after just having talked to re discharging today. Pt with bottles of gatorade and slices of apple present. Objective Treatment Activities PO trials, safe swallowing strategies, questions/concerns Assessment Assessment of Improvement Consulted with RN re pt progress. RN reporting no difficulty with regular solids at breakfast this morning, and speech clear and intelligible. ST assessed swallow function with PO trial of reg solids and thin liquids in order to determine if pt remains on safest diet for discharge. Pt consumed a large apple slice for solids. For solids Pt demonstrated adequate bite size and rate, slightly prolonged mastication , mild SOB, however adequate bolus formation and control, no overt s/s of aspiration or reports of food feeling stuck. No oral residue was present after the swallow, so no concerns for pocketing. For thin liquids via cup sip from gatorade bottle, Pt demonstrated 1x throat clear, mildly wet vocal quality which pt spontaneously cleared with throat clear, no coughing observed. ST educated Pt on use of smaller sips due to risk of premature spillage. Pt verbalized understanding. Pt states that previous ST provided him with oral motor exercises. Pt stated he had no questions regarding these exercises. Speech remains 100% intelligible and pt/daughter report it is back to baseline. OPERATIONS MANAGEMENT TRAINEE asked if pt or daughter had any questions re swallowing, speech, or cognition prior to d/c; they stated they had no questions. Reviewed with Patient Home Exercise Program Plan Amount of Therapy Recommended No Further Therapy
--- NOTE | 2024-01-09 10:37 | CM.DPNOTE ---
DCP Note FRAME STRAIGHTENER reviewed EMR. Per Dr. Barnhart, pt cleared to dc home today. Per OT, slums of today. Per speech note, cleared for home exercises. FRAME STRAIGHTENER met with pt and dtr in room. Report eager for dc home. Dtr got a walker for pt for home. Pt denies wanting HH at this time. Deny other CM needs. Dtr will stay with pt for foreseeable future/until pt is closer to baseline. Plan: dc home today. no CM needs at this time. CM team will continue to follow as needed. KAMRON Lam
--- NOTE | 2024-01-09 11:00 | PT.IPTN ---
Current Diagnoses Cerebral infarction, unspecified (01/06/24) Other specified abnormal findings of blood chemistry (01/06/24) Physical Therapy Treatment Note M2 PT-IP Current Condition Start: 01/07/24 08:50 Freq: NEEDED Status: Discharge Protocol: Document 01/07/24 10:45 AW (Rec: 01/07/24 12:41 AW [id number]) Physical Therapy Current Condition Current Condition Evaluation Date 01/07/24 Treatment Diagnosis CVA rule out, PNA, impaired mobility Onset Date 01/03/24 M3 PT-IP Subjective Start: 01/07/24 08:50 Freq: NEEDED Status: Discharge Protocol: Document 01/09/24 14:19 TS (Rec: 01/09/24 14:24 TS [id number]) Subjective Physical Therapy Visit Type Type Treatment Note Visit Start Time 11:00 Visit Stop Time 11:23 Number of CARDIOVASCULAR SURGICAL TECH Visits 2 Physical Therapy Visit Comments Patient Comments Pt found resting in chair, is agreeable to PT. M4 PT-IP Mobility and Gait Start: 01/07/24 08:50 Freq: NEEDED Status: Discharge Protocol: Document 01/09/24 14:19 TS (Rec: 01/09/24 14:24 TS [id number]) PT-Transfer Assessment Sit to and From Stand Sit to and from Stand Standby Assistance Comments Mobility Comments STS from chair SBA with FWW. Pt ambulated ~200' SBA with FWW, pt agreed to ambulate another ~200 with no AD. Pt has x2 minor LOB, was able to correct balance with no device or assist. In room pt performed tandem stance and SLS with counter support. Pt improved with his holding time on tandem stance and SLS. Pt was left in chair, all needs met. Gait Assessment Gait Gait Assistance Required: Standby Assistance Distance (Feet) 400 Assistive Devices Assistive Device None,Gait Belt,Front Wheeled Walker Gait Deviations General Gait Pattern Decreased Stride Length, Decreased Feet Clearance,Wide Based Gait Factors Limiting Gait Function Factors Limiting Gait Function Decreased Activity Tolerance, Decreased Strength Comments Gait Comments See mobility comments PT-Balance Assessment Sitting Balance and Reactions Static Sitting Balance Ability Normal Dynamic Sitting Balance Ability Normal Standing Balance and Reactions Static Standing Balance Ability Good Dynamic Standing Balance Ability Good Device Used no AD/FWW M5 PT-IP Objective Assessments Start: 01/07/24 08:50 Freq: NEEDED Status: Discharge Protocol: Document 01/07/24 10:45 AW (Rec: 01/07/24 12:41 AW [id number]) Orientation Orientation/Cognition Level of Alertness Alert Orientation Name,Day of Week,Place, Situation Language Function Ability No Deficits Noted Safety Awareness Understands Safety Issues Memory Description No Deficits Noted Comments No dysarthria or word finding difficulty noted. Gross Range of Motion Upper Extremity ROM Assessment Within Functional Limits Lower Extremity ROM Assessment Within Functional Limits Strength Upper Extremity Strength Assessment Within Functional Limits Lower Extremity Strength Assessment Within Functional Limits Hip flexion and abduction 4/5 Knee ext 5/5 flex 4+/5 Ankle DF 5/5 Comments Strength Comments No unilateral deficit Coordination Assessment Assessment Finger to Nose Test Minimal Impairment Pronation/Supination Test Minimal Impairment Coordination Comments UE coordination affected by bilateral tremors. Pt states tremors have been present ~1 week since upper respiratory symptoms started. Sensation Assessment Sensation Gross Sensation WNL Light Touch Intact Muscle Tone Comments Muscle Tone Comments New UE tremors, bilateral Other Assessments Other Other Assessments Vision, ocular motor, and vestibular screens WNL. M7 PT-IP Assessment and Plan Start: 01/07/24 08:50 Freq: NEEDED Status: Discharge Protocol: Document 01/09/24 14:19 TS (Rec: 01/09/24 14:24 TS [id number]) PT Summary Assessment and Plan Potential Rehabilitation Potential Excellent Summary Impairments Strength,Balance,Transfers, Gait,Activity Tolerance Progress Towards Goals Progressing Toward Goals Assessment Summary Clinton continues to do well with his mobility. He progressed his gait to ~200 with FWW and ~200 with no AD. Pt is unsteady at times with no AD and recommended pt get FWW or SPC for home use, pt agreed. He demonstrated improved balance with tandem stance and SLS today. Recommended pt continue balance traiing and outpatient PT could be beneficial. PT is recommending home with assist and outpatient PT. Goals Bed Mobility Goal Independent Transfer Goal Independent Gait Goal Independent Gait Distance 200 Other Goals Pt completes 5 Time Sit to development engineer 20 seconds or less as a measure of improved functional strength. Days to Meet Goals 5 Frequency of Treatment Frequency Of Treatment Once a Day Treatment Plan Physical Therapy Treatment Plan Bed Mobility Training,Transfer Training,Gait Training, Therapeutic Exercise,Balance Retraining,Discharge Planning, Hot or Cold Pack,Neuromuscular Re-ed Recommendations To Nursing Amount of Assist Needed Standby Assistance Discharge Recommendations PT Discharge Recommendations Home with Assistance, Outpatient PT Transportation Needs at Discharge Private Vehicle
--- NOTE | 2024-01-09 11:06 | P.DS_ITS ---
History of Present Illness History of Present Illness Date Patient Seen: 01/09/24 Time Patient Seen: 09:40 Chief complaint: Right facial muscle weakness and slurred speech Narrative: CC: breathing and weakness Feeling fine this morning eating drinking ambulating eliminating no trouble. Daughter agrees he seems pretty back to baseline however there is some very slight lateral R sided facial droop she notices. He feels ready to go home. Discharge Providers Provider Date of admission: 01/06/24 18:17 Discharge Date: 01/09/24 Primary care physician: Siri Casas MD Consults: 01/06/24 18:36 Consult to Discharge Planning Routine Comment: 01/06/24 18:37 Consult to Occupational Therapy Evaluate & Treat Comment: Physician Instructions: Evaluate and treat Consult to Physical Therapy Evaluate & Treat Comment: Physician Instructions: Evaluate and Treat 01/06/24 18:43 Consult to Discharge Planning Routine Comment: Consult to Occupational Therapy Evaluate & Treat Comment: Physician Instructions: Evaluate and treat Consult to Physical Therapy Evaluate & Treat Comment: Physician Instructions: Evaluate and Treat Consult to Speech Therapy Evaluate & Treat Comment: Physician Instructions: Evaluate and treat 01/07/24 09:21 Consult to Physical Therapy Evaluate & Treat Comment: Physician Instructions: Evaluate and Treat Discharge provider: Clinton Barnhart MD Summary Hospital Course Discharge Diagnosis: #Pneumonia #Right facial weakness and difficulty of speech on presentation #Hyponatremia #Elevated LFTs #EKG #Primary hypertension Hospital Course: Mr. Hawkins is a pleasant gentleman quite active and fit at baseline who presented to ED with concern for acute weakness - while in the ED he did have sudden onset of some R sided facial droop and weakness - was evaluated with imaging which revealed a pneumonia as well as an absence of any acute intracranial evident processes. Neurology was consulted and he was started on plavix and aspirin with iv abx for the pneumonia. Additionally a severe hyponatremia was identified of uncertain recency. He was treated as inpatient with sodium supplementation orally, iv antibiotics, and plavix/aspirin. By DoD he was progressing back to baseline with normal speech gait and swallow after several days of slowly increasing sodium levels. Plan will be to dc home on oral abx with encouragement to eat plenty of salty foods - will f/up as outpt in clinic. Status at Discharge Cognitive/behavioral status at discharge: at baseline, oriented Functional status at discharge: independent ambulation Overall status at discharge: patient is progressing back to baseline Exam Vital Signs (past 8 hours): - 01/09/24 04:00 01/09/24 07:00 01/09/24 08:00 Temperature 97.1 F L 97.0 F L Pulse Rate 83 82 Respiratory Rate 17 16 Blood Pressure 140/72 133/69 Pulse Oximetry 90 L 98 98 Oxygen Delivery Method Room Air Oxygen Flow Rate 0 Oxygen Delivery Method Room Air Oxygen Flow Rate 0 Narrative Exam Narrative: sitting in chair reading Const Other: a bit pale and thin Resp Other: clear to auscultation bilaterally, moving air well clearly speaking full sentences on room air Cardio Other: RRR s1/s2 GI Other: soft nontender active bowel sounds Neuro Other: 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 alternating handclap and heel- meredith is grossly wnl bilaterally. His smile grimace shrug and tongue protrusion are grossly symmetric but at rest I do see a slight R sided facial droop with partial effacement of his R cheek dimple which is intact on L cheek. He is alert and oriented and conversational with no apparent cognitive issues. Objective Labs 01/09/24 05:40 01/09/24 05:40 Labs: Laboratory Results - last 24 hr 01/09/24 05:40 WBC 7.1 RBC 3.78 L Hgb 11.5 L Hct 32.9 L MCV 87.2 MCH 30.5 MCHC 35.0 RDW 14.2 Plt Count 145 L Neut % (Auto) 91.4 H Lymph % (Auto) 4.9 L Dickson % (Auto) 3.5 Eos % (Auto) 0.0 L Baso % (Auto) 0.2 Neut # (Auto) 6500 Lymph # (Auto) 400 L Dickson # (Auto) 200 Eos # (Auto) 0 Baso # (Auto) 0 Sodium 127 L Potassium 3.8 Chloride 101 Carbon Dioxide 23 BUN 14 Creatinine 0.90 Estimated GFR > 60 BUN/Creatinine Ratio 15.6 Glucose 105 Calcium 6.8 L Magnesium 2.1 Total Bilirubin 0.6 AST 136 H ALT 81 H Alkaline Phosphatase 79 Total Protein 4.8 L Albumin 2.4 L Globulin 2.4 Albumin/Globulin Ratio 1.0 [facility] Medical History Detached retina, bilateral Detached retina History of squamous cell carcinoma of skin History of colon polyps Recurrent epistaxis Hard of hearing Surgical History Status post cataract extraction of both eyes with insertion of intraocular lens History of cholecystectomy (~2010) H/O wrist surgery H/O right knee surgery (~1990) Social History household members: none Smoking Status: Never smoker alcohol intake: current Discharge Assessment & Plan Assessment and Plan Assessment: #Pneumonia Unclear source but clinical improvement on iv antibiotics, transitioned to orals doing well on room air. Still feeling weak but eating and improving. #Right facial weakness and difficulty of speech on presentation Seems to be largely resolved at this point although I agree there may be a slight right-sided difference in the facial symmetry although it is subtle. Discussed options with patient and family they would prefer to continue on full dose aspirin alone no plavix for now which is ok - will f/up in clinic as outpt. #Hyponatremia Slow improvement with nutrition and salt supplementation. He is aware of this issue we discussed need to add extra salt and focus on nutrition. Certainly could have been factor in his gradual decline and weakness. Will f/up as outpt. #Elevated LFTs Mild, with unclear etiology. CT is reviewed. No obvious findings. No other changes. Will f/up as outpt, likely 2/2 infection #EKG Mild changes appears not to be cardiac. Will follow. #Primary hypertension Stable on home meds. DVT prophylaxis: On Lovenox aspirin Plavix Code status: full Dispo: home with daughter for close follow up PCP: Bronwyn Discharge Plan Discharge Plan Patient Disposition: Home Discharge orders & Medications Prescriptions: New atorvastatin 20 mg Tablet 40 mg PO BEDTIME 30 Days Qty: 30 0RF ciprofloxacin HCl 250 mg Tablet 750 mg PO 0700,2100 5 Days Qty: 30 0RF aspirin 325 mg Tablet,Delayed Release (Dr/Ec) 325 mg PO DAILY 45 Days Qty: 45 0RF Continued losartan 50 mg tablet 50 mg PO BEDTIME metoprolol succinate 25 mg tablet extended release 24 hr 25 mg PO BEDTIME Discontinued aspirin 81 mg Capsule 81 mg PO BEDTIME Follow up/Referrals: Siri Casas MD [Primary Care Provider] - Visit Report/Discharge Packet Stand Alone Forms: Patient Portal/API, Stroke Signs & Symptoms Discharge Data Primary Care Provider: Siri Casas VTE Deep Vein Thrombosis/Pulmonary Embolism Present on Admission: No
--- NOTE | 2024-01-09 12:57 | PC.NURSE ---
Patient is A&OX4. VSS, afebrile on RA. He appears to be moving independently with a slow and steady gait. He requests a shower this a.m. and COLLECTION AGENT reports he did well independently with SBA. MD at bedside evaluating patient and clears him for discharge. MANAGEMENT INTERNSHIP evaluates pt. he tolerates breakfast well. No neuro deficits observed.He is cleared for discharge home this a.m. with a follow up with PCP, Dr. Barnhart on Sunday. He denies any pain, dizziness or SOB this a.m. He reports fatigue and still feeling weak. He verbalizes understanding of discharge medications, activity, and follow up plan. RN escorts the patient via w/ch to private vehicle with daughter for discharge home today at 1145 a.m.
== END 2024-01-09 11:45 | disposition home or self-care (01) | DRG 194 ==
LOC: ED 17:22 → AC 18:18
PROVIDERS: Family Medicine; Admitting Provider Family Medicine; Emergency Provider Emergency Medicine; PCP Student in an Organized Health Care Education/Training Program; Referring Provider Emergency Medicine; Visit Provider Family Medicine
DX: J18.9 Pneumonia, unspecified organism (principal); E87.1 Hypo-osmolality and hyponatremia; R29.810 Facial weakness; R47.81 Slurred speech; I10 Essential (primary) hypertension; I49.1 Atrial premature depolarization; R79.89 Other specified abnormal findings of blood chemistry; R00.0 Tachycardia, unspecified; Z20.822 Contact with and (suspected) exposure to COVID-19
CPT/HCPCS: 36415; 70450; 70496; 70498; 70551; 71045; 71046; 71260; 74177; 80053; 80061; 81003; 81015; 82550; 83605; 83690; 83735; 83880; 84145; 84484; 85025; 85610; 85730; 86140; 87040; 87633; 92526; 92610; 93005; 93306; 96365; 97112; 97116; 97129; 97130; 97162; 97166; 97530; 97535; 99284; 99285; J1650; J2543; Q9967

== ENCOUNTER → 2024-01-11 11:26 | Outpatient (CLI) | payer MEDICARE, SELFPAY ==
[2024-01-06 18:22] VITALS: BMI 21.8
[2024-01-11 13:41] LABS: Alanine Aminotransferase 154 IU/L (<50); Albumin 2.6 g/dL (3.5-5.0); Albumin Globulin Ratio 1.1 (1.0-2.8); Alkaline Phosphatase 106 U/L (38-126); Aspartate Aminotransferase 242 IU/L (17-59); BUN Creatinine Ratio 17.3 (6-22); Bilirubin Total 0.6 mg/dL (0.2-1.3); Blood Urea Nitrogen 13 mg/dL (9-20); Calcium 7.1 mg/dL (8.4-10.2); Carbon Dioxide 25 mmol/L (22-32); Chloride 98 mmol/L (98-107); Estimated Glomerular Filt Rate > 60 mL/min (>60); Globulin 2.4 g/dL (1.7-4.1); Glucose 101 mg/dL (80-110); HEMOLYSIS < 15 (0-50); Potassium 3.7 mmol/L (3.4-5.1); Sodium 130 mmol/L (137-145)
== END ==
PROVIDERS: PCP Family Medicine; Referring Provider Family Medicine; Visit Provider Family Medicine
DX: E87.1 Hypo-osmolality and hyponatremia (principal); R79.89 Other specified abnormal findings of blood chemistry
CPT/HCPCS: 36415; 80053

== ENCOUNTER → 2024-04-02 09:10 | Outpatient (CLI) | payer MEDICARE, SELFPAY ==
[2024-01-06 18:22] VITALS: BMI 21.8
[2024-04-02 09:53] LABS: Add Manual Diff / Slide Review NO; Basophils Absolute Auto 0 /uL (0-100); Basophils Percent Auto 0.8 % (0-2); Eosinophils Absolute Auto 100 /uL (0-450); Eosinophils Percent Auto 1.7 % (2-4); Hematocrit 40.5 % (41-53); Hemoglobin 13.8 g/dL (13.5-17.5); Lymphocytes Absolute Auto 1300 /uL (1100-4500); Lymphocytes Percent Auto 27.3 % (25-40); Mean Corpuscular HGB Conc 34.1 % (30-36); Mean Corpuscular Hemoglobin 30.3 PG (26-34); Mean Corpuscular Volume 88.9 fL (80-100); Monocytes Absolute Auto 400 /uL (0-900); Monocytes Percent Auto 8.3 % (3-14); Neutrophils Absolute Auto 2900 /uL (1500-7000); Neutrophils Percent Auto 61.9 % (50-75); Platelet Count 220 X10^3/uL (150-400); Red Blood Cell Count 4.55 X10^6/uL (4.5-5.9); Red Cell Distribution Width 13.9 % (11.6-14.8); White Blood Cell Count 4.7 X10^3/uL (4.5-11.0)
[2024-04-02 10:13] LABS: Alanine Aminotransferase 20 IU/L (<50); Albumin 3.9 g/dL (3.5-5.0); Albumin Globulin Ratio 1.5 (1.0-2.8); Alkaline Phosphatase 92 U/L (38-126); Aspartate Aminotransferase 32 IU/L (17-59); BUN Creatinine Ratio 19.8 (6-22); Bilirubin Total 0.6 mg/dL (0.2-1.3); Blood Urea Nitrogen 17 mg/dL (9-20); Carbon Dioxide 27 mmol/L (22-32); Chloride 101 mmol/L (98-107); Estimated Glomerular Filt Rate > 60 mL/min (>60); Globulin 2.6 g/dL (1.7-4.1); Glucose 93 mg/dL (80-110); HEMOLYSIS < 15 (0-50); Potassium 5.3 mmol/L (3.4-5.1); Sodium 134 mmol/L (137-145); Total Protein 6.5 g/dL (6.3-8.2)
== END ==
PROVIDERS: PCP Family Medicine; Referring Provider Family Medicine; Visit Provider Family Medicine
DX: E87.1 Hypo-osmolality and hyponatremia (principal); E83.51 Hypocalcemia; R79.89 Other specified abnormal findings of blood chemistry
CPT/HCPCS: 36415; 80053; 85025

== ENCOUNTER 2024-11-03 08:18 | Day surgery (SDC) | payer MEDICARE, SELFPAY ==
[2024-01-06 18:22] VITALS: BMI 21.8
[2024-11-03 08:52] VITALS: BP 156/76; PULSE 59; RESP 12; TEMP 36.3; O2SAT 100
[2024-11-03] MEDS: LACTATED RINGERS 1,000 ML 42 ML IV (09:03)
--- NOTE | 2024-11-03 09:23 | PM.HP.IH.1 ---
History of Present Illness History of Present Illness Date Patient Seen: 11/03/24 Chief complaint: Screening Colonoscopy [facility] Medical History (Updated 07/29/24 @ 12:58 by Landon Levine DO) Benign essential hypertension Encounter for subsequent annual wellness visit (AWV) in Medicare patient Pulmonary nodule Detached retina, bilateral Detached retina History of squamous cell carcinoma of skin History of colon polyps Recurrent epistaxis Hard of hearing Surgical History Status post cataract extraction of both eyes with insertion of intraocular lens History of cholecystectomy (~2010) H/O wrist surgery H/O right knee surgery (~1990) Social History household members: none Smoking Status: Never smoker alcohol intake: current Meds Home Medications and Allergies Home Medications Medication Instructions Recorded Confirmed Type atorvastatin 10 mg tablet (Lipitor) 10 mg PO DAILY cholesterol #90 tabs 04/02/24 11/03/24 Rx metoprolol succinate 25 mg 25 mg PO BEDTIME #90 tabs 04/02/24 11/03/24 Rx tablet,extended release 24 hr losartan 100 mg tablet 100 mg PO DAILY blood pressure 10/20/24 11/03/24 Rx #100 tabs aspirin 81 mg capsule 81 mg PO DAILY 11/03/24 11/03/24 History Allergies Allergy/AdvReac Type Severity Reaction Status Date / Time No Known Drug Allergies Allergy Verified 11/03/24 08:47 Exam Vital Signs (past 8 hours): - 11/03/24 08:52 Temperature 97.3 F L Pulse Rate 59 L Respiratory Rate 12 Blood Pressure 156/76 H Pulse Oximetry 100 Oxygen Delivery Method Room Air Oxygen Delivery Method Room Air Narrative Exam Narrative: Oropharynx free of lesions Chest clear to auscultation percussion Cardiac exam reveals no S3 or murmur Assessment & Plan Assessment & Plan narrative: History of adenomatous colon polyps need for follow-up colonoscopy. Risks, benefits, alternatives have been explained. Time-Based Coding :: [TOTAL MINUTES] spent with patient and on the chart (including review of chart, obtaining history, exam, reviewing outside data, placing orders, documenting exam and treatment plan, and counseling patient) on [DATE]. PROFEE Drop Board Man Document charge(s): No
--- NOTE | 2024-11-03 09:24 | PM.OP.COLON ---
Operative Date/Time/Diagnoses Date of procedure: 11/03/24 Pre-op diagnosis: See indication and findings Procedure & Clinicians Study performed: Colonoscopy Same procedure as scheduled: Yes Indications: History of adenomatous colon polyps Surgeon: Harvey Davies Procedure Notes Procedure in detail: After informed consent was obtained the patient placed in left lateral decubitus position. Video colonoscope was introduced the rectum slowly advanced cecum. Preparation was good. On slow withdrawal mucosa was carefully examined. The scope was removed. The patient tolerated procedure well. Blood loss none Complications none Sedation mac Findings 1. Mild sigmoid diverticulosis 2. Otherwise negative colonoscopy to cecum This will be the last colonoscopy for patient
[2024-11-03 10:20] VITALS: BP 114/61; PULSE 65; RESP 16; TEMP 36.1; O2SAT 95
[2024-11-03 10:24] VITALS: BP 108/60; PULSE 64; RESP 19; O2SAT 100
[2024-11-03 10:30] VITALS: BP 132/64; PULSE 54; RESP 20; TEMP 36.6; O2SAT 100
== END 2024-11-03 11:04 | disposition home or self-care (01) ==
PROVIDERS: PCP Family Medicine; Referring Provider Internal Medicine Gastroenterology; Visit Provider Internal Medicine Gastroenterology
PROC: 0DJD8ZZ Inspection of Lower Intestinal Tract, Via Natural or Artificial Opening Endoscopic (ICD-10-PCS; CPT 45378; principal; 2024-11-03 09:30)
DX: Z12.11 Encounter for screening for malignant neoplasm of colon (principal); Z86.0101 Personal history of adenomatous and serrated colon polyps; K57.30 Diverticulosis of large intestine without perforation or abscess without bleeding
CPT/HCPCS: G0105; J2704

== ENCOUNTER → 2025-02-09 13:15 | Outpatient (CLI) | payer MEDICARE, SELFPAY ==
[2024-01-06 18:22] VITALS: BMI 21.8
--- NOTE | 2025-02-09 13:17 | DI.RAD.S_ITS ---
PROCEDURE: XR CHEST 2V INDICATIONS: Cough TECHNIQUE: 2 views of the chest were acquired. COMPARISON: [facility], CR, XR CHEST 2V, 01/08/2024, 8:34. FINDINGS: Surgical changes and devices: None. Lungs and pleura: Lungs are clear. No pleural effusions or pneumothorax. Mediastinum: Mediastinal contours are normal. Heart size is normal. Bones and chest wall: No suspicious bony abnormalities. Soft tissues appear unremarkable. IMPRESSION: No acute cardiopulmonary abnormality is seen. Dictated by: Tim Soriano M.D. on 02/10/2025 at 2:42 Approved by: Tim Soriano M.D. on 02/10/2025 at 2:42
== END ==
PROVIDERS: PCP Family Medicine; Referring Provider Family Medicine; Visit Provider Physician Assistant
DX: R05.9 Cough, unspecified (principal)
CPT/HCPCS: 71046

== ENCOUNTER → 2025-02-17 15:21 | Outpatient (CLI) | payer MEDICARE, SELFPAY ==
[2024-01-06 18:22] VITALS: BMI 21.8
[2025-02-17 17:19] LABS: Hematocrit 38.6 % (41-53); Hemoglobin 13.4 g/dL (13.5-17.5); Mean Corpuscular HGB Conc 34.7 % (30-36); Mean Corpuscular Hemoglobin 30.3 PG (26-34); Mean Corpuscular Volume 87.5 fL (80-100); Platelet Count 192 X10^3/uL (150-400)
[2025-02-17 18:01] LABS: Alanine Aminotransferase 20 IU/L (<50); Albumin 4.0 g/dL (3.5-5.0); Albumin Globulin Ratio 1.5 (1.0-2.8); Alkaline Phosphatase 91 U/L (38-126); Blood Urea Nitrogen 17 mg/dL (9-20); Calcium 8.6 mg/dL (8.4-10.2); Carbon Dioxide 25 mmol/L (22-32); Chloride 99 mmol/L (98-107); Cholesterol 95 mg/dL (140-199); Estimated Glomerular Filt Rate > 60 mL/min (>60); Globulin 2.7 g/dL (1.7-4.1); Glucose 66 mg/dL (70-99); HDL Cholesterol 42 mg/dL (40-60); HEMOLYSIS < 15 (0-50); Potassium 4.1 mmol/L (3.4-5.1); Sodium 134 mmol/L (137-145); Total Protein 6.7 g/dL (6.3-8.2); Triglycerides 69 mg/dL (35-150)
== END ==
PROVIDERS: PCP Family Medicine; Referring Provider Family Medicine; Visit Provider Family Medicine
DX: I10 Essential (primary) hypertension (principal); Z12.5 Encounter for screening for malignant neoplasm of prostate; E87.5 Hyperkalemia; R53.82 Chronic fatigue, unspecified; R00.2 Palpitations
CPT/HCPCS: 36415; 80053; 80061; 85027; G0103

== ENCOUNTER → 2025-02-25 15:08 | Outpatient (CLI) | payer MEDICARE, SELFPAY ==
[2024-01-06 18:22] VITALS: BMI 21.8
== END ==
LOC: CAR 15:09
PROVIDERS: PCP Family Medicine; Referring Provider Family Medicine; Visit Provider Family Medicine
DX: R00.2 Palpitations (principal)
CPT/HCPCS: 93242

== ENCOUNTER → 2025-02-26 09:47 | Outpatient (CLI) | payer MEDICARE, SELFPAY ==
[2024-01-06 18:22] VITALS: BMI 21.8
--- NOTE | 2025-02-26 09:48 | DI.CT.S_ITS ---
PROCEDURE: CT CHEST WO CON INDICATIONS: FU pulm nodule, see CT 01/16/24 TECHNIQUE: Noncontrast 5 mm thick sections acquired from the pulmonary apices to the posterior costophrenic angles. 1 mm lung window, 5 mm thick coronal and sagittal and 7 mm axial MIP reformats were then acquired. For radiation dose reduction, the following was used: automated exposure control, adjustment of mA and/or kV according to patient size. COMPARISON: [facility], CT, CT CHEST ABD PEL W CON, 01/06/2024, 19:59. FINDINGS: Image quality: Diagnostic. Lungs and Pleura: Benign calcified subpleural granuloma in the lateral left upper lobe is unchanged. Subpleural nodule in the posterior right costophrenic sulcus, 3/253 measures 5 mm. Right lateral lower lobe triangular nodule measures 7 mm, 3/213. Noncalcified left base nodule measures 5 mm, 3/268. Anterior left lower lobe perivascular nodule, 3/171 is 4 mm. Central and peripheral airways are normal without bronchial wall thickening or bronchiectasis. No nodule, mass, ground-glass opacity, or consolidation. No pleural effusions or pleural calcifications. Lower Neck: No enlarged lymph nodes. Thyroid: Normal CT appearance. Axillae: No enlarged lymph nodes. Chest Wall: No suspicious chest wall lesions. Bones: Slightly heterogeneous, sclerotic mineralization in L1, similar to prior. Bridging endplate osteophytes throughout the mid to lower thoracic spine. Thoracic Vessels: The aorta and pulmonary arteries demonstrate normal size. Mediastinum and Maria Fernanda: No enlarged lymph nodes. Heart: Heart size is normal. No pericardial effusion. Heavy coronary artery calcification. Esophagus: No wall thickening. No hiatal hernia. Upper Abdomen: Cholecystectomy. Pancreatic atrophy. Visible portions of upper abdominal organs are otherwise normal. IMPRESSION: Pulmonary nodule requiring follow-up is a stable benign granuloma. Other noncalcified solid pulmonary nodules are present as described. Several or not seen due to acute airspace disease present previously. Follow-up in 6-12 months depending on risk factors is recommended to begin to establish stability. Sclerotic L1 vertebral body, nonspecific. Depending on patient history, healed or indolent neoplasm may be present. Heavy coronary artery calcification. Dictated by: Cinda Camara M.D. on 02/26/2025 at 15:42 Approved by: Cinda Camara M.D. on 02/26/2025 at 15:54
== END ==
LOC: CT 09:48
PROVIDERS: PCP Family Medicine; Referring Provider Family Medicine; Visit Provider Family Medicine
DX: I25.10 Atherosclerotic heart disease of native coronary artery without angina pectoris (principal); R91.8 Other nonspecific abnormal finding of lung field; K86.89 Other specified diseases of pancreas; Z90.49 Acquired absence of other specified parts of digestive tract
CPT/HCPCS: 71250

== ENCOUNTER → 2025-06-04 13:46 | Outpatient (CLI) | payer MEDICARE, SELFPAY ==
[2024-01-06 18:22] VITALS: BMI 21.8
--- NOTE | 2025-06-04 13:48 | DI.ECHO.S_ITS ---
[facility] : : [id number] : [place] : : [id number] : : Phone: [phone] Echocardiogram Report + + :Name: ISADORA FONTANEZ Study Date: 06/04/2025 Height: 71 in : :[facility] ReadingLocation: Weight: 152 lb : : Gender: Male BSA: 1.9 m2 : :: 1945 Age: 80 yrs BP: 158/70 mmHg: :Reason For Study: CORONARY ARTERY DISEASE : :Ordering Physician: PREET, : :HALIMA Performed By: Frank Stanford : :Referring: HALIMA NIEVES : + + Interpretation Summary 1) Normal left ventricular size, thickness, wall motion, and systolic function (EF 55-60%). 2) MIldly enlarged right ventricle with normal function. 3) There is mild mitral valve prolapse of the posterior leaflet. 4) There is mild mitral regurgitation. 5) Compared to the Echo done 01/07/2024, mild mitral regurgitation is present on this study. Procedure: A two-dimensional transthoracic echocardiogram with color flow and Doppler was performed. The study quality was technically good. Comparison is made with the echocardiogram of 01/07/2024. The patient was in normal sinus rhythm during the exam. Left Ventricle: The left ventricle is normal in size. There is normal left ventricular wall thickness. There is no ventricular septal defect visualized. The ejection fraction is estimated to be 55-60%. There are no focal wall motion abnormalities. Diastolic parameters suggest probable normal left ventricular diastolic function and normal filling pressures. Right Ventricle: The right ventricle is mildly dilated. The right ventricular systolic function is normal. Atria: The left atrium is severely dilated. Right atrial size is normal. There is no Doppler evidence for an interatrial shunt. Mitral Valve: There is mild mitral annular calcification. There is mild mitral valve prolapse. There is mild mitral regurgitation. Aortic Valve: The aortic valve is trileaflet. The aortic valve opens well. There is trace aortic regurgitation. Tricuspid Valve: The tricuspid valve leaflets are thin and pliable. There is a trace or physiologic amount of tricuspid regurgitation. Pulmonic Valve: The pulmonic valve leaflets are thin and pliable; valve motion is normal. There is mild pulmonic regurgitation. Great Vessels: The aortic root is normal size. The ascending aorta is at the upper limits of normal in size. The aortic arch is at the upper limits of normal in size. The pulmonary artery is normal size. The IVC is of normal diameter and collapses greater than 50% with a sniff. This suggests a low right atrial pressure of 3 mm Hg. Pericardium/ Pleura There is no pericardial effusion. There is no pleural effusion. MMode/2D Measurements & Calculations LVIDd: 5.2 cm LVOT diam: 2.4 cm LVIDs: 3.5 cm Ao root diam: 3.6 cm FS: 32.7 % asc Aorta Diam: 4.0 cm EPSS: 0.59 cm Ao Arch Diam (Prox Trans): 2.7 cm IVSd: 0.82 cm LVPWd: 0.78 cm LV chase. diameter/BSA (cm/m^2): 2.8 LV sys. diameter/BSA (cm/m^2): 1.9 LA A2 area: 23.6 cm2 RA long axis: 3.8 cm LA A4 area: 26.8 cm2 RA area: 10.8 cm2 LA length (vol): 5.9 cm RA vol: 25.6 ml LA vol: 91.2 ml RA : 13.7 ml/m2 LA vol index: 48.6 ml/m2 IVC diam: 1.3 cm RVD1 (basal): 4.0 cm RVD2 (mid): 3.2 cm TAPSE: 3.4 cm Doppler Measurements & Calculations Ao V2 max: 107.8 cm/sec LVOT Max Ubaldo: 65.1 cm/sec Ao V2 mean: 71.6 cm/sec LV V1 max P.7 mmHg Ao max P.7 mmHg LV V1 VTI: 16.7 cm Ao mean P.3 mmHg ALETHEA(I,D): 2.9 cm2 Ao V2 VTI: 25.9 cm ALETHEA(V,D): 2.7 cm2 sev ratio: 0.65 ALETHEA indexed to BSA (cm^2/m^2): 1.5 MV E max ubaldo: 66.8 cm/sec PA V2 max: 102.2 cm/sec MV A max ubaldo: 33.4 cm/sec PA V2 mean: 76.0 cm/sec MV E/A: 2.0 PA mean P.5 mmHg Med Peak E' Ubaldo: 4.5 cm/sec PA pr(Accel): 34.5 mmHg E/E' med: 14.8 Lat Peak E' Ubaldo: 3.9 cm/sec E/E' lat: 17.3 E/e' average: 16.0 MV dec time: 0.37 sec SV(LVOT): 74.4 ml Reading Physician:06:32 PM
--- NOTE | 2025-06-04 17:24 | DI.NM.S_ITS ---
DATE OF SERVICE: 06/04/2025 EXERCISE TREADMILL STRESS TEST PROCEDURE: Exercise treadmill stress test without imaging. ORDERING PHYSICIAN: Dr. Bharat Nieves. INDICATIONS: The patient is a 80-year-old hypertensive male with documentation of coronary artery calcification. FINDINGS: 1. The patient was able to exercise for 10 minutes 41 seconds on a standard Prashant protocol suggesting exceptional exercise capacity with an MARTELL of -119%, achieving 12.8 METS. 2. He had a normal heart rate response to exercise, achieving a maximum heart rate of 146 bpm (104% of his predicted maximum) but had a mild hypertensive blood pressure response with a resting blood pressure 140/80, increasing to a maximum of 210/100. 3. He had moderate exertional dyspnea but no chest discomfort or other anginal symptoms. 4. His resting ECG shows sinus rhythm with occasional PACs, but normal ST segments. With stress, there are no significant ST-segment shifts although the frequency of his PACs increases, with occasional short runs up to 4 to 5 beats with abnormal preceding P waves, as well as occasional PVCs, rarely in couplets, triplets, and 4-beat runs at peak exercise that resolve early in recovery except for brief ventricular bigeminy. IMPRESSION: 1. Normal exercise treadmill stress test for ischemia. 2. Exceptional exercise capacity without angina. 3. He had a mild hypertensive blood pressure response to exercise. 4. He had PACs at rest with increasing supraventricular and ventricular ectopy with exercise with short runs of PAT up to 4 to 5 beats and ventricular runs up to four beats but no sustained arrhythmias. These promptly resolved in recovery except for brief ventricular bigeminy. He remained asymptomatic. Clinton Hawkins - RS/zheng/ONEIDA doc#: [id number]/job#: [id number] dd: 06/04/2025 16:47:00 dt: 06/04/2025 16:49:00 DICTATING MD/COPIES TO: Ming Wolf MD; Dr. Bharat Nieves COPIES MNE: RENE; ; Dr. Bharat Nieves
== END ==
PROVIDERS: PCP Family Medicine; Referring Provider Internal Medicine Cardiovascular Disease; Visit Provider Internal Medicine Cardiovascular Disease
DX: I25.10 Atherosclerotic heart disease of native coronary artery without angina pectoris (principal); I47.29 Other ventricular tachycardia; I49.3 Ventricular premature depolarization; I34.0 Nonrheumatic mitral (valve) insufficiency; I34.1 Nonrheumatic mitral (valve) prolapse; R03.0 Elevated blood-pressure reading, without diagnosis of hypertension; I49.1 Atrial premature depolarization
CPT/HCPCS: 93017; 93306

== ENCOUNTER → 2025-06-21 11:25 | Outpatient (CLI) | payer MEDICARE, SELFPAY ==
[2024-01-06 18:22] VITALS: BMI 21.8
[2025-06-21 12:15] LABS: Influenza A - CEPHEID Flu A NEGATIVE (NEGATIVE); Influenza B - CEPHEID Flu B NEGATIVE (NEGATIVE)
[2025-06-21 12:16] LABS: COVID-19 CEPHEID 4-PLEX PCR Negative (Negative)
== END ==
PROVIDERS: PCP Family Medicine; Visit Provider Nurse Practitioner Family
DX: J02.9 Acute pharyngitis, unspecified (principal); R05.1 Acute cough
CPT/HCPCS: 87070; 87637